=== PATIENT | female | born 1945 | race Caucasian/White ===

== ENCOUNTER → 2017-05-26 | Outpatient (CLI) | payer MEDICARE, OTHER ==
[2017-05-26 11:35] LABS: Blood Urea Nitrogen 21 mg/dL (7-17); Non-African American GFR(MDRD) 52 (>60 ml/min/1.73 sqM)
--- NOTE | 2017-05-26 12:45 | CT ---
EXAMINATION TYPE: CT ChestAbdPelvis w con DATE OF EXAM: 05/26/2017 COMPARISON: Previous study dated 04/23/2016 HISTORY: Bladder cancer CT DLP: 2100 mGycm Automated exposure control for dose reduction was used. TECHNIQUE: Helical acquisition through the abdomen and pelvis was obtained without oral contrast but following the intravenous administration of 80 mL of Visipaque 320. The data was formatted in the ax ial, coronal and sagittal projections. FINDINGS: There is a stable 5.5 mm subpleural nodule in the lateral basal segment of the right lower lobe, best seen on image 33. There is a 7.1 mm subpleural nodule in the lateral basal segment of the right lower lobe best seen on image 40. Previously described nodule in the superior segment of the of the right lower lobe previously measured 4.36 mm today measures 5.1 mm. No other definite parenchyma l nodules are seen. There is no significant axillary, internal mammary, mediastinal or hilar adenopathy. The heart is mildly enlarged. There is no pleural or pericardial fluid. Within the abdomen, the liver is normal in size. It is mildly fatty infiltrated. Previously described hypodensity within the left lobe of the liver near the diaphragm previously measured 7.3 mm and toda y measures 1.4 cm. No other hepatic lesions are identified. The spleen and gallbladder are normal. Both adrenal glands are normal. There is been a previous left nephrectomy. The right kidney is normal. The pancreas is unremarkable. There is no significant retroperitoneal, iliac or inguinal adenopathy. The right hip prosthesis causing streak artifact in the pelvis. The bladder is not identified. The uterus and ovaries are not identified. There is ileal conduit in the right lower quadrant. There is mucosal thickening within the sigmoid colon. The appendix is not visualized. Small bowel loops are unremarkable. There is no free air and no free fluid identified. There degenerative changes in the left hip as well as throughout the lumbar and thoracic spine. There is diffuse hypertrophic spondylosis and facet arthropathy. No bony destructive lesion is seen. IMPRESSION: 1. LUNGS STABLE RIGHT-SIDED PULMONARY NODULES. 2. ENLARGING LESION IN THE LEFT LOBE OF LIVER. 3. STATUS POST LEFT NEPHRECTOMY, HYSTERECTOMY AND CYSTECTOMY. 4. MUCOSAL THICKENING OF THE SIGMOID COLON. PLEASE CORRELATE CLINICALLY FOR COLITIS. 5. DEGENERATIVE CHANGES WITHIN THE SPINE.
== END | disposition home or self-care (01) ==
LOC: RADCTMAIN 10:59
PROVIDERS: ATTEND Internal Medicine Hematology & Oncology
DX: Z03.89 Encounter for observation for other suspected diseases and conditions ruled out (principal); C67.9 Malignant neoplasm of bladder, unspecified; R91.8 Other nonspecific abnormal finding of lung field; K76.9 Liver disease, unspecified; Z90.5 Acquired absence of kidney; Z90.710 Acquired absence of both cervix and uterus
CPT/HCPCS: 82565; 84520; 71260; 74177; 36415; Q9967

== ENCOUNTER → 2017-07-15 | Outpatient (CLI) | payer MEDICARE, OTHER ==
[~2017-07-15] MED LIST: REGADENOSON 0.4 MG/5 ML SYRINGE IV ONE
--- NOTE | 2017-07-15 11:42 | NM ---
EXAMINATION TYPE: NM stress lexiscan cardiolite DATE OF EXAM: 07/15/2017 COMPARISON: NONE HISTORY: Precordial chest pain and abnormal EKG TECHNIQUE: After the intravenous administration of 10.9 mCi Tc 99m Sestamibi - Cardiolite resting SP ECT images acquired 45 minutes post injection. The patient received 0.4mg Lexiscan, 27.6 mCi Tc 99m Sestamibi - Stress images obtained [address] injection FINDINGS: Review of stress and rest SPECT images demonstrates fixed decreased perfusion involving the anterior wall which may reflect remote insult versus breast attenuation artifact. No evidence for stress-induc ed ischemia. Estimated ejection fraction is 71%. No wall motion abnormalities identified. IMPRESSION: No scintigraphic evidence for reversible ischemia.
--- NOTE | 2017-07-16 13:43 | EST ---
DATE OF SERVICE: 07/15/17 The test is being done to evaluate cardiac status. BASELINE HEART RATE: 70 BASELINE BLOOD PRESSURE: 194/89 MAXIMUM HEART RATE: 93 MAXIMUM BLOOD PRESSURE: 175/79 85% MPHR 123 100% MPHR 149 Baseline EKG showed sinus rhythm with normal OK interval and QRS duration. The patient has history of chest pain and palpitations and also hypercholesterolemia , smoking and family history. Baseline EKG showed sinus rhythm. A standard dose of Lexiscan was infused. EKGs during and after infusion did not reveal any changes to suggest ischemia. FINAL IMPRESSION: 1. Negative Lexiscan stress test. 2. Report on the nuclear images to be given by the radiologist. SANTIAGOD
== END | disposition home or self-care (01) ==
LOC: RADNMMAIN 07-14 08:53
PROVIDERS: ATTEND Family Medicine
DX: R94.31 Abnormal electrocardiogram [ECG] [EKG] (principal)
CPT/HCPCS: 93017; 78452; A9500; J2785

== ENCOUNTER → 2017-10-19 | Outpatient (CLI) | payer MEDICARE, OTHER ==
--- NOTE | 2017-10-19 14:42 | MM ---
Reason for exam: additional evaluation requested from prior study. Last mammogram was performed 1 year ago. History: Patient is postmenopausal, has history of other cancer at age 64, has history of breast cancer at age 61, and had previous chest radiation therapy at age 61. Family history of breast cancer in maternal grandmother at age 60. Malignant excisional biopsy of the left breast, November 25, 2006. Radiation therapy of the left breast, 2006. Malignant core biopsy of the left breast, October 12, 2006. Excisional biopsy of the left breast. Excisional biopsy of the right breast. Took hormonal contraceptives for 11 years. Took tamoxifen for 5 years beginning at age 60. Physical Findings: Nurse did not find any significant physical abnormalities on exam. MG 3D Diag Mammo W/Cad KIEL Bilateral CC and MLO view(s) were taken. Prior study comparison: October 04, 2016, bilateral MG 3d diag mammo w/cad KIEL. October 01, 2015, bilateral MG 3d diag mammo w/cad KIEL. There are scattered fibroglandular densities. Finding #1: Architectural distortion in the left breast consistent with known lumpectomy. Finding #2: There are typically benign vascular, round calcifications in both breasts. There is a chronic nodularity in the right breast. There is no discrete abnormality. These results were verbally communicated with the patient and result sheet given to the patient on 10/19/17. ASSESSMENT: Benign, BI-RAD 2 RECOMMENDATION: Routine screening mammogram of both breasts in 1 year.
== END | disposition home or self-care (01) ==
LOC: RADMAMWWP 13:48
PROVIDERS: ATTEND Family Medicine
DX: Z08 Encounter for follow-up examination after completed treatment for malignant neoplasm (principal); Z85.3 Personal history of malignant neoplasm of breast
CPT/HCPCS: G0204; G0279

== ENCOUNTER → 2018-06-24 | Outpatient (CLI) | payer MEDICARE, OTHER ==
--- NOTE | 2018-06-25 12:39 | PE ---
EXAMINATION TYPE: PET CT fusion skull to thigh DATE OF EXAM: 06/24/2018 COMPARISON: CT chest abdomen pelvis 05/26/2017 Prior PET/CT: None at this location HISTORY: Urinary bladder cancer , left kidney removed 2009, radiation therapy left breast 2005 TECHNIQUE: Following the intravenous administration of 13.45 mCi of F-18 FDG, whole body images are performed from the skull base to the midthigh. Images are reviewed on the computer in the coronal, a xial, and sagittal planes. Reconstructed rotating images are created on independent workstation and reviewed on the computer. A localization and attenuation correction CT is performed in conjunction with the PET scan. DLP: 475.12 mGycm SCAN: Subsequent Scan, prior PET scan location unknown, no prior PET/CT at this location. Blood glucose: 93 mg/dL Average Mediastinum SUV: 1.88 Average Liver SUV: 2.88 FINDINGS: NECK: No abnormal uptake THORAX: No abnormal uptake ABDOMEN: No abnormal uptake PELVIS: There is increased radiotracer accumulation within the left medial thigh musculature. This is more diffuse than typically expected for metastatic disease. Injury and healing could be considered. Suspicious uptake to suggest recurrence is not identified. There is uptake likely related to inflamm ation through the urostomy. There is increased uptake along the right lateral pelvic wall along the site of prior surgery likely related to the surgery. Monitoring with PET/CT could be performed. OSSEOUS STRUCTURES: No abnormal uptake LOCALIZATION CT: There is been a left nephrectomy. Cystectomy has been performed. Bowel resection has been performed. Bilateral hip prostheses are present limiting lower pelvis evaluation. COMPARISON: There is been an interval left hip placement. This may likely accounts for the muscle upt aron within the pelvis medial left thigh. IMPRESSION: 1. No suspicious uptake to suggest recurrent or metastatic disease. 2. Recent left hip replacement likely accounts for the uptake within the medial left anterior thigh m usculature. 3. Uptake along the right pelvic wall appears to correspond to surgery. This area can be monitored wi th PET/CT.
== END | disposition home or self-care (01) ==
LOC: RADPETMAIN 09:17
PROVIDERS: ATTEND Internal Medicine Hematology & Oncology
DX: C67.8 Malignant neoplasm of overlapping sites of bladder (principal); Z96.642 Presence of left artificial hip joint
CPT/HCPCS: 78815; A9552

== ENCOUNTER → 2019-08-06 | Outpatient (CLI) | payer MEDICARE, OTHER ==
--- NOTE | 2019-08-06 11:49 | MM ---
Reason for exam: additional evaluation requested from prior study. Last mammogram was performed 1 year and 10 months ago. History: Patient is postmenopausal, has history of other cancer at age 64, has history of breast cancer at age 61, and had previous chest radiation therapy at age 61. Family history of breast cancer in maternal grandmother at age 60. Malignant excisional biopsy of the left breast, November 25, 2006. Radiation therapy of the left breast, 2006. Malignant core biopsy of the left breast, October 12, 2006. Excisional biopsy of the left breast. Excisional biopsy of the right breast. Took hormonal contraceptives for 11 years. Took tamoxifen for 5 years beginning at age 60. Physical Findings: Nurse did not find any significant physical abnormalities on exam. MG 3D Diag Mammo W/Cad KIEL Bilateral CC and MLO view(s) were taken. Prior study comparison: October 19, 2017, bilateral MG 3d diag mammo w/cad KIEL. October 04, 2016, bilateral MG 3d diag mammo w/cad KIEL. There are scattered fibroglandular densities. Stable scattered focal asymmetries on the right. Post surgical and post therapy changes on the left breast. No significant new findings when compared with previous films. These results were verbally communicated with the patient and result sheet given to the patient on 08/06/19. ASSESSMENT: Benign, BI-RAD 2 RECOMMENDATION: Routine screening mammogram of both breasts in 1 year.
== END | disposition home or self-care (01) ==
LOC: RADMAMWWP 10:52
PROVIDERS: ATTEND Family Medicine
DX: Z08 Encounter for follow-up examination after completed treatment for malignant neoplasm (principal); Z85.3 Personal history of malignant neoplasm of breast
CPT/HCPCS: 77066; G0279; 77062

== ENCOUNTER 2021-11-04 10:30 | Emergency (ER) | payer MEDICARE, OTHER ==
[2021-11-04 10:47] VITALS: TEMP 98
[2021-11-04 11:20] VITALS: RESP 16
[2021-11-04] MEDS ORDERED: MORPHINE SULFATE 4 MG/ML SYRINGE IV STA (11:30)
--- NOTE | 2021-11-04 11:34 | ED ---
Abdominal Pain HPI - General Chief Complaint: Abdominal Pain Stated Complaint: Abd pain Time Seen by Provider: 11/04/21 11:13 Source: patient Mode of arrival: ambulatory Limitations: no limitations - History of Present Illness Initial Comments: Dictation was produced using [employer] dictation software. please excuse any grammatical, word or spelling errors. Chief Complaint: 75-year-old female presents with abdominal pain History of Present Illness: She is a 75-year-old female presents to the emergency department for abdominal pain. Patient reports that she's been having this pain for several weeks. She called her general surgeon's office and was instructed to come to the emergency department. Patient has a urostomy to her right lower quadrant. Patient states that the pain feels leads under her urostomy site she states that it severe episodic. Nonradiating. Denies any fever. No nausea of abdominal pain. Patient regular bowel movement. She is not sure if she is constipated. The ROS documented in this emergency department record has been reviewed and confirmed by me. Those systems with pertinent positive or negative responses have been documented in the HPI. All other systems are other negative and/or noncontributory. PHYSICAL EXAM: General Impression: Alert and oriented x3, not in acute distress HEENT: Normocephalic atraumatic, extra-ocular movements intact, pupils equal and reactive to light bilaterally, mucous membranes moist. Cardiovascular: Heart regular rate and rhythm Chest: Able to complete full sentences, no retractions, no tachypnea Abdomen: abdomen soft, non-tender, non-distended, no organomegaly Musculoskeletal: Pulses present and equal in all extremities, no peripheral edema Motor: no focal deficits noted Neurological: CN II-XII grossly intact, no focal motor or sensory deficits noted Skin: Intact with no visualized rashes Psych: Normal affect and mood ED course: 75-year-old female who is well-appearing presents to the emergency department for abdominal pain vital signs upon arrival are within acceptable limits. Patient is well-appearing at the bedside. She does not appear to be having active symptoms at this time. Laboratory evaluation obtained. No leukocytosis. CBC unremarkable. Metabolic panel is within acceptable limits. Urinalysis is negative. Computed tomography scan shows retroperitoneal adenopathy suspicious for oncologic process. Patient was notified of the CT results. Disposition options were discussed. Patient is agreeable for discharge. She will call her oncologist as soon as possible to make an appointment. Patient given pain pills to take at home when necessary pain. - Related Data Home Medications Medication Instructions Recorded Confirmed Acetaminophen [Tylenol Extra 1,000 mg PO QID PRN 11/04/21 11/04/21 Strength] Atorvastatin [Lipitor] 20 mg PO TUSA 11/04/21 11/04/21 Calcium Carbonate [Tums] 500 mg PO DIRECTED PRN 11/04/21 11/04/21 Cannabidiol (Cbd) [Epidiolex] 0 mg TOPICAL DIRECTED PRN 11/04/21 11/04/21 Doxylamine Succinate [Unisom] 25 mg PO HS PRN 11/04/21 11/04/21 Metoprolol Tartrate [Lopressor] 100 mg PO BID 11/04/21 11/04/21 Multivit-Min/FA/Lycopen/Lutein 1 each PO DAILY 11/04/21 11/04/21 [Centrum Silver Tablet] Suppositories/Enemas 1 dose RECTAL DIRECTED PRN 11/04/21 Verapamil HCl [Verapamil ER] 120 mg PO DAILY 11/04/21 11/04/21 hydrALAZINE HCL [Apresoline] 10 mg PO DAILY 11/04/21 11/04/21 lisinopriL 40 mg PO DAILY 11/04/21 11/04/21 Previous Rx's Medication Instructions Recorded oxyCODONE-APAP 10-325MG [Percocet 1 tab PO Q4HR PRN 3 Days #18 tab 11/04/21 10-325 mg] Allergies Allergy/AdvReac Type Severity Reaction Status Date / Time codeine Allergy Rash/Hives, Verified 11/04/21 10:41 red all over colesevelam [From WelChol] Allergy Unknown Verified 11/04/21 10:41 duloxetine [From Cymbalta] Allergy Unknown Verified 11/04/21 10:41 latex Allergy positive Verified 11/04/21 10:41 allergy testing nickel Allergy positive Verified 11/04/21 10:41 allergy testing tramadol Allergy Unknown Verified 11/04/21 10:41 valsartan [From Diovan] Allergy Unknown Verified 11/04/21 10:41 zolpidem [From Ambien] Allergy Unknown Verified 11/04/21 10:41 Review of Systems ROS Statement: Those systems with pertinent positive or pertinent negative responses have been documented in the HPI. ROS Other: All systems not noted in ROS Statement are negative. Past Medical History Past Medical History: Cancer, GERD/Reflux, Hypertension Additional Past Medical History / Comment(s): 2007-breast cancer with surgery, radiation and Tamoxifen, left kidney and bladder cancer -surgery with chemo and hysterectomy., hx colon polyps., pt has urostomy., states constipation for 3 months, has used suppositories, and enemas, past blood in stool and dark black stools., states pain right abdomen by her stoma. , states abdomen is soft but feels swollen. History of Any Multi-Drug Resistant Organisms: None Reported Past Surgical History: Bladder Surgery, Breast Surgery, Joint Replacement Additional Past Surgical History / Comment(s): 2004 TOTAL RIGHT HIP, 2006 LEFT BREAST LUPECTOMY, 2009 LEFT KIDNEY REMOVED, BLADDER SURGERY WITH UROSTOMY, 2016 TOTAL LEFT HIP. Past Anesthesia/Blood Transfusion Reactions: No Reported Reaction Past Psychological History: No Psychological Hx Reported Smoking Status: Former smoker Past Alcohol Use History: None Reported Past Drug Use History: None Reported - Past Family History Mother Family Medical History: No Reported History General Exam Limitations: no limitations Course Vital Signs 11/04/21 11/04/21 10:42 11:18 Temperature 98 F Pulse Rate 71 72 Respiratory 18 16 Rate Blood Pressure 196/90 149/107 O2 Sat by Pulse 95 97 Oximetry Medical Decision Making - Lab Data Result diagrams: 11/04/21 11:47 11/04/21 11:47 Lab Results 11/04/21 11/04/21 11/04/21 Range/Units 11:47 11:47 11:47 WBC 4.8 (3.8-10.6) k/uL RBC 4.72 (3.80-5.40) m/uL Hgb 15.2 (11.4-16.0) gm/dL Hct 46.7 H (34.0-46.0) % MCV 98.8 (80.0-100.0) fL MCH 32.1 (25.0-35.0) pg MCHC 32.5 (31.0-37.0) g/dL RDW 14.1 (11.5-15.5) % Plt Count 197 (150-450) k/uL MPV 9.4 Neutrophils % 62 % Lymphocytes % 24 % Monocytes % 10 % Eosinophils % 1 % Basophils % 0 % Neutrophils # 3.0 (1.3-7.7) k/uL Lymphocytes # 1.2 (1.0-4.8) k/uL Monocytes # 0.5 (0-1.0) k/uL Eosinophils # 0.1 (0-0.7) k/uL Basophils # 0.0 (0-0.2) k/uL Sodium 140 (137-145) mmol/L Potassium 4.6 (3.5-5.1) mmol/L Chloride 104 (98-107) mmol/L Carbon Dioxide 21 L (22-30) mmol/L Anion Gap 15 mmol/L BUN 15 (7-17) mg/dL Creatinine 0.94 (0.52-1.04) mg/dL Est GFR (CKD-EPI)AfAm 69 (>60 ml/min/1.73 sqM) Est GFR (CKD-EPI)NonAf 60 (>60 ml/min/1.73 sqM) Glucose 115 H (74-99) mg/dL Calcium 10.2 (8.4-10.2) mg/dL Total Bilirubin 0.7 (0.2-1.3) mg/dL AST 27 (14-36) U/L ALT 16 (4-34) U/L Alkaline Phosphatase 77 (38-126) U/L Total Protein 7.7 (6.3-8.2) g/dL Albumin 4.7 (3.5-5.0) g/dL Lipase 78 (23-300) U/L Urine Color Light Yellow Urine Appearance Clear (Clear) Urine pH 6.5 (5.0-8.0) Ur Specific [place] 1.014 (1.001-1.035) Urine Protein Negative (Negative) Urine Glucose (UA) Negative (Negative) Urine Ketones Negative (Negative) Urine Blood Negative (Negative) Urine Nitrite Negative (Negative) Urine Bilirubin Negative (Negative) Urine Urobilinogen <2.0 (<2.0) mg/dL Ur Leukocyte Esterase Negative (Negative) Disposition Clinical Impression: Abdominal mass Disposition: HOME SELF-CARE Condition: Fair Instructions (If sedation given, give patient instructions): Bladder Cancer (DC) Prescriptions: oxyCODONE-APAP 10-325MG [Percocet 10-325 mg] 1 tab PO Q4HR PRN 3 Days #18 tab PRN Reason: Pain Is patient prescribed a controlled substance at d/c from ED?: Yes If prescribed controlled substance>3 days was MAPS reviewed?: Prescribed <3 Days Referrals: Chery Thomas DO [Primary Care Provider] - 1-2 days Fer Malave MD [STAFF PHYSICIAN] - 1-2 days
[2021-11-04 12:08] LABS: Basophils % (A) 0 %; Eosinophils # (A) 0.1 k/uL (0-0.7); Eosinophils % (A) 1 %; HCT 46.7 % (34.0-46.0); HGB 15.2 gm/dL (11.4-16.0); Lymphocytes # (A) 1.2 k/uL (1.0-4.8); Lymphocytes % (A) 24 %; MCH 32.1 pg (25.0-35.0); MCHC 32.5 g/dL (31.0-37.0); MCV 98.8 fL (80.0-100.0); Mean Platelet Volume 9.4; Monocytes # (A) 0.5 k/uL (0-1.0); Monocytes % (A) 10 %; Neutrophils % (A) 62 %; Platelet Count 197 k/uL (150-450); RBC 4.72 m/uL (3.80-5.40); RDW 14.1 % (11.5-15.5); WBC 4.8 k/uL (3.8-10.6)
[2021-11-04 12:50] LABS: Albumin 4.7 g/dL (3.5-5.0); Calcium 10.2 mg/dL (8.4-10.2); Potassium 4.6 mmol/L (3.5-5.1); Total Bilirubin 0.7 mg/dL (0.2-1.3); Total Protein 7.7 g/dL (6.3-8.2)
--- NOTE | 2021-11-04 13:50 | CT ---
EXAMINATION TYPE: CT abdomen pelvis w con DATE OF EXAM: 11/04/2021 COMPARISON: HISTORY: Lower abdominal pain and below stoma. CT DLP: 1590 mGycm Automated exposure control for dose reduction was used. TECHNIQUE: Helical acquisition of images from the lung bases through the pelvis have been completed. CONTRAST: Performed without Oral Contrast and with IV Contrast, patient injected with 80 mL of Isovue 300. FINDINGS: LUNG BASES: No significant abnormality is appreciated. AORTA: No significant abnormality is appreciated. LIVER/GB: No significant abnormality is appreciated. PANCREAS: No significant abnormality is seen. SPLEEN: No significant abnormality is seen. ADRENALS: No significant abnormality is seen. KIDNEYS: Left kidney is not seen as on prior exam, post nephrectomy changes present. Prominence of th e right renal collecting system is a chronic finding., Right-sided hydroureter extends to the level o f the surgical clip similar to prior exam REPRODUCTIVE ORGANS: Exam limited due to artifact, surgical clips are present within the pelvis. Uter us and adnexal structures not seen BOWEL: Postop changes are noted, suture present along the bowel in the right lower quadrant. There i s an ostomy in the right lower quadrant. No evident bowel obstruction. FREE AIR: No Free Air visible. ASCITES: None visible. PELVIC ADENOPATHY: None visualized. RETROPERITONEAL ADENOPATHY: At the level of aortic bifurcation on the left there is been interval de velopment of abnormal soft tissue measuring approximately 3 cm in AP dimension by 2.1 cm in transvers e dimension by 5.7 cm in cephalad to caudal dimension, there is some associated surgical clips this l evel. URINARY BLADDER: No significant abnormality is seen. OSSEOUS STRUCTURES: Degenerative disc changes and facet arthropathy noted especially in the lumbar s pine, patient is post bilateral hip arthroplasties, streak artifact obscured detail. IMPRESSION: FINDINGS SUGGEST NEW RETROPERITONEAL ADENOPATHY, THERE ARE POSTOP CHANGES PRESENT. FOLLOW-UP WITH ONC OLOGY, CONSIDER PET CT.
[2021-11-04 13:58] LABS: Appearance,Urine Clear (Clear); Bilirubin,Urine Negative (Negative); Blood,Urine Negative (Negative); Color,Urine Light Yellow; Glucose,Urine (UA) Negative (Negative); Ketones,Urine Negative (Negative); Leukocyte Esterase,Urine Negative (Negative); Nitrite,Urine Negative (Negative); PH, Urine 6.5 (5.0-8.0); Protein,Urine Negative (Negative); Specific Gravity,Urine 1.014 (1.001-1.035); Urobilinogen,Urine <2.0 mg/dL (<2.0)
[2021-11-04] MEDS ORDERED: MORPHINE SULFATE 4 MG/ML SYRINGE IVP STA (14:37)
[2021-11-04 14:52] VITALS: BP 164/100; PULSE 80
== END 2021-11-04 14:50 | disposition home or self-care (01) ==
LOC: EC 10:30
DX: R19.00 Intra-abdominal and pelvic swelling, mass and lump, unspecified site (principal); I10 Essential (primary) hypertension; K21.9 Gastro-esophageal reflux disease without esophagitis; Z88.5 Allergy status to narcotic agent; Z88.8 Allergy status to other drugs, medicaments and biological substances; Z91.040 Latex allergy status; Z91.09 Other allergy status, other than to drugs and biological substances; Z88.6 Allergy status to analgesic agent; Z87.891 Personal history of nicotine dependence; Z79.899 Other long term (current) drug therapy
CPT/HCPCS: 36415; 80053; 83690; 85025; 81003; 74177; 99284; 96374; 96376; J2270; Q9967

== ENCOUNTER 2021-11-10 08:00 | Emergency (ER) | payer MEDICARE, OTHER ==
[2021-11-10 08:18] VITALS: RESP 18; TEMP 98.6
[2021-11-10] MEDS ORDERED: SODIUM CHLORIDE 0.9% 1,000 ML IV STA (08:23)
[2021-11-10] MEDS ORDERED: MORPHINE SULFATE 4 MG/ML SYRINGE IVP STA ×2 (08:23→10:07)
--- NOTE | 2021-11-10 08:47 | ED ---
General Adult HPI - General Chief complaint: Abdominal Pain Stated complaint: abd pain Time Seen by Provider: 11/10/21 08:12 Source: patient, EMS, RN notes reviewed, old records reviewed Mode of arrival: EMS Limitations: no limitations - History of Present Illness Initial comments: Patient is a 76-year-old female with past medical history remarkable for breast cancer, bladder cancer, kidney cancer who presents emergency Department complaining of her acute on chronic abdominal pain. This is been ongoing for multiple weeks. She was seen in the emergency department last week and was diagnosed with new retroperitoneal adenopathy with a strong concern for recurrence of cancer due to her history. She was sent home on oxycodone and follow up with her oncologist, Dr. Barros. She followed up with them yesterday and a PET CT was scheduled for which is 2 days from now. She states she was given [place], but this does not seem to control the pain like oxycodone did. She is complaining of the continued pain that she has been expansive the last few weeks. Denies any change in by mouth intake, nausea, vomiting. Denies any change in bowel movements, but states she has a chronic feeling of constipation over the last few weeks, however she did have a normal bowel movement 1-2 days ago. Denies any urinary complaints. Endorses primarily right lower quadrant abdominal pain that is an achy, sharp sensation beneath the level of the urostomy tube. It does not radiate. It comes and goes in waves. His no other acute complaints at this time. Denies any fevers, chills, cough. Was vaccinated for COVID-19. - Related Data Home Medications Medication Instructions Recorded Confirmed Acetaminophen [Tylenol Extra 1,000 mg PO QID PRN 11/04/21 11/04/21 Strength] Atorvastatin [Lipitor] 20 mg PO TUSA 11/04/21 11/04/21 Calcium Carbonate [Tums] 500 mg PO DIRECTED PRN 11/04/21 11/04/21 Cannabidiol (Cbd) [Epidiolex] 0 mg TOPICAL DIRECTED PRN 11/04/21 11/04/21 Doxylamine Succinate [Unisom] 25 mg PO HS PRN 11/04/21 11/04/21 Metoprolol Tartrate [Lopressor] 100 mg PO BID 11/04/21 11/04/21 Multivit-Min/FA/Lycopen/Lutein 1 each PO DAILY 11/04/21 11/04/21 [Centrum Silver Tablet] Suppositories/Enemas 1 dose RECTAL DIRECTED PRN 11/04/21 Verapamil HCl [Verapamil ER] 120 mg PO DAILY 11/04/21 11/04/21 hydrALAZINE HCL [Apresoline] 10 mg PO DAILY 11/04/21 11/04/21 lisinopriL 40 mg PO DAILY 11/04/21 11/04/21 Previous Rx's Medication Instructions Recorded oxyCODONE-APAP 10-325MG [Percocet 1 tab PO Q4HR PRN 3 Days #18 tab 11/04/21 10-325 mg] oxyCODONE HCL/ACETAMINOPHEN 1 tab PO Q4HR PRN 3 Days #18 tab 11/10/21 [Percocet 10-325 mg] Allergies Allergy/AdvReac Type Severity Reaction Status Date / Time codeine Allergy Rash/Hives, Verified 11/10/21 08:19 red all over colesevelam [From WelChol] Allergy Unknown Verified 11/10/21 08:19 duloxetine [From Cymbalta] Allergy Unknown Verified 11/10/21 08:19 latex Allergy positive Verified 11/10/21 08:19 allergy testing nickel Allergy positive Verified 11/10/21 08:19 allergy testing tramadol Allergy Unknown Verified 11/10/21 08:19 valsartan [From Diovan] Allergy Unknown Verified 11/10/21 08:19 zolpidem [From Ambien] Allergy Unknown Verified 11/10/21 08:19 Review of Systems ROS Statement: Those systems with pertinent positive or pertinent negative responses have been documented in the HPI. Review of Systems: CONST: Denies fever EYES: Denies blurry vision ENT: Denies nasal congestion C/V: Denies Chest pain RESP: Denies shortness of breath GI: Endorses abdominal pain : Denies dysuria SKIN: Denies rash. MSK: Denies joint pain. NEURO: Denies headache ROS Other: All systems not noted in ROS Statement are negative. Past Medical History Past Medical History: Cancer, GERD/Reflux, Hypertension Additional Past Medical History / Comment(s): 2007-breast cancer with surgery, radiation and Tamoxifen, left kidney and bladder cancer -surgery with chemo and hysterectomy., hx colon polyps., pt has urostomy., states constipation for 3 months, has used suppositories, and enemas, past blood in stool and dark black stools., states pain right abdomen by her stoma. , states abdomen is soft but feels swollen. History of Any Multi-Drug Resistant Organisms: None Reported Past Surgical History: Bladder Surgery, Breast Surgery, Joint Replacement Additional Past Surgical History / Comment(s): 2004 TOTAL RIGHT HIP, 2006 LEFT BREAST LUPECTOMY, 2009 LEFT KIDNEY REMOVED, BLADDER SURGERY WITH UROSTOMY, 2017 TOTAL LEFT HIP. Past Anesthesia/Blood Transfusion Reactions: No Reported Reaction Past Psychological History: No Psychological Hx Reported Smoking Status: Former smoker Past Alcohol Use History: None Reported Past Drug Use History: None Reported - Past Family History Mother Family Medical History: No Reported History General Exam - General Exam Comments Initial Comments: General: Appears in mild discomfort secondary to her chronic abdominal pain. HEAD: Normal with no signs of head trauma. EYES: PERRLA, EOMI, conjunctiva normal, no discharge. ENT: Hearing grossly intact, normal oropharynx. RESPIRATORY: Clear breath sounds bilaterally. No wheezes, rales, or rhonchi. C/V: Regular rate and rhythm. S1 and S2 auscultated, no edema, peripheral pulses 2+ and intact throughout ABD: Abdomen is soft, nondistended. Patient is tender to palpation in the same area, right lower quadrant. Patient's urostomy site is adequately draining clear urine. No concern for obstruction. No guarding. No peritoneal signs. EXT: Normal range of motion, no obvious deformity SKIN: No rashes or lesions observed on exposed skin. NEURO: Alert and oriented 4. No focal deficits. Limitations: no limitations Course Vital Signs 11/10/21 11/10/21 08:02 09:50 Temperature 98.6 F Pulse Rate 75 65 Respiratory 18 18 Rate Blood Pressure 195/87 196/103 O2 Sat by Pulse 96 98 Oximetry Medical Decision Making - Medical Decision Making Based on the patient's presentation and physical exam, I believe she is likely dispensing her chronic abdominal pain that has been ongoing for multiple weeks likely secondary to her adenopathy located in her abdomen seen on prior computed tomography scan. She has adequate follow-up with her oncologist and has a scheduled PET computed tomography scan later this week. She ran out of the stronger pain medication at home, has no other acute complaints at this time. We will provide analgesia, 1 L fluid bolus, as well as basic laboratory studies. We discussed that if possible, would like patient to go home due to it being COVID-19 pandemic and having adequate follow-up. She was in agreement with this plan. Basic laboratory studies will be sent. Patient's laboratory studies are remarkable for no acute process. Urinalysis is unremarkable. Reevaluation come patient's pain is under control. I did discuss admission for pain control versus outpatient management of pain control. I can pry provide her with additional Percocet prescription. She elected to be discharged home at this time and attempt pain control at home. I was in agreement this plan. She does have close follow-up and is due for a PET scan on . Patient completed the opiate form. She will be given 3 days of Percocet. I will provide the patient with a prescription for Percocet. I instructed the patient to follow up with their PCP in the next 3 days. I explained that the patient should return to the emergency department if they experience any worsening symptoms. Strict return precautions were discussed with the patient. The patient expressed understanding of these instructions. I answered all questions that the patient had. The patient was discharged home in fair condition with their prescriptions and follow up information. - Lab Data Result diagrams: 11/10/21 08:47 11/10/21 08:47 Lab Results 11/10/21 11/10/21 11/10/21 Range/Units 08:47 08:47 09:17 WBC 3.8 (3.8-10.6) k/uL RBC 4.20 (3.80-5.40) m/uL Hgb 13.4 (11.4-16.0) gm/dL Hct 40.3 (34.0-46.0) % MCV 95.9 (80.0-100.0) fL MCH 31.9 (25.0-35.0) pg MCHC 33.3 (31.0-37.0) g/dL RDW 12.9 (11.5-15.5) % Plt Count 134 L (150-450) k/uL MPV 9.9 Neutrophils % 60 % Lymphocytes % 25 % Monocytes % 13 % Eosinophils % 1 % Basophils % 0 % Neutrophils # 2.3 (1.3-7.7) k/uL Lymphocytes # 1.0 (1.0-4.8) k/uL Monocytes # 0.5 (0-1.0) k/uL Eosinophils # 0.0 (0-0.7) k/uL Basophils # 0.0 (0-0.2) k/uL Sodium 139 (137-145) mmol/L Potassium 4.4 (3.5-5.1) mmol/L Chloride 106 (98-107) mmol/L Carbon Dioxide 26 (22-30) mmol/L Anion Gap 7 mmol/L BUN 16 (7-17) mg/dL Creatinine 0.85 (0.52-1.04) mg/dL Est GFR (CKD-EPI)AfAm 77 (>60 ml/min/1.73 sqM) Est GFR (CKD-EPI)NonAf 67 (>60 ml/min/1.73 sqM) Glucose 115 H (74-99) mg/dL Calcium 9.4 (8.4-10.2) mg/dL Magnesium 2.1 (1.6-2.3) mg/dL Total Bilirubin 0.6 (0.2-1.3) mg/dL AST 22 (14-36) U/L ALT 14 (4-34) U/L Alkaline Phosphatase 76 (38-126) U/L Total Protein 6.8 (6.3-8.2) g/dL Albumin 4.0 (3.5-5.0) g/dL Amylase 108 (30-110) U/L Lipase 217 (23-300) U/L Urine Color Light Yellow Urine Appearance Clear (Clear) Urine pH 6.5 (5.0-8.0) Ur Specific [place] 1.006 (1.001-1.035) Urine Protein Negative (Negative) Urine Glucose (UA) Negative (Negative) Urine Ketones Negative (Negative) Urine Blood Negative (Negative) Urine Nitrite Negative (Negative) Urine Bilirubin Negative (Negative) Urine Urobilinogen <2.0 (<2.0) mg/dL Ur Leukocyte Esterase Negative (Negative) Disposition Clinical Impression: Chronic abdominal pain, Cancer Disposition: HOME SELF-CARE Condition: Fair Instructions (If sedation given, give patient instructions): Abdominal Pain (ED) Prescriptions: oxyCODONE HCL/ACETAMINOPHEN [Percocet 10-325 mg] 1 tab PO Q4HR PRN 3 Days #18 tab PRN Reason: Pain Is patient prescribed a controlled substance at d/c from ED?: Yes If prescribed controlled substance>3 days was MAPS reviewed?: Prescribed <3 Days Referrals: Chery Thomas DO [Primary Care Provider] - 1-2 days Fer Malave MD [STAFF PHYSICIAN] - 1-2 days
[2021-11-10 08:58] LABS: Basophils % (A) 0 %; Eosinophils % (A) 1 %; HCT 40.3 % (34.0-46.0); HGB 13.4 gm/dL (11.4-16.0); Lymphocytes % (A) 25 %; MCH 31.9 pg (25.0-35.0); MCHC 33.3 g/dL (31.0-37.0); MCV 95.9 fL (80.0-100.0); Mean Platelet Volume 9.9; Monocytes # (A) 0.5 k/uL (0-1.0); Monocytes % (A) 13 %; Neutrophils # (A) 2.3 k/uL (1.3-7.7); Neutrophils % (A) 60 %; Platelet Count 134 k/uL (150-450); RDW 12.9 % (11.5-15.5); WBC 3.8 k/uL (3.8-10.6)
[2021-11-10 09:17] LABS: Calcium 9.4 mg/dL (8.4-10.2); Magnesium 2.1 mg/dL (1.6-2.3); Potassium 4.4 mmol/L (3.5-5.1); Total Bilirubin 0.6 mg/dL (0.2-1.3); Total Protein 6.8 g/dL (6.3-8.2)
[2021-11-10 09:46] LABS: Appearance,Urine Clear (Clear); Bilirubin,Urine Negative (Negative); Blood,Urine Negative (Negative); Color,Urine Light Yellow; Glucose,Urine (UA) Negative (Negative); Ketones,Urine Negative (Negative); Leukocyte Esterase,Urine Negative (Negative); Nitrite,Urine Negative (Negative); PH, Urine 6.5 (5.0-8.0); Protein,Urine Negative (Negative); Specific Gravity,Urine 1.006 (1.001-1.035); Urobilinogen,Urine <2.0 mg/dL (<2.0)
[2021-11-10 09:52] VITALS: BP 196/103; PULSE 65
== END 2021-11-10 10:34 | disposition home or self-care (01) ==
LOC: EC 08:00
DX: R10.31 Right lower quadrant pain (principal); G89.29 Other chronic pain; K21.9 Gastro-esophageal reflux disease without esophagitis; I10 Essential (primary) hypertension; Z85.3 Personal history of malignant neoplasm of breast; Z85.528 Personal history of other malignant neoplasm of kidney; Z88.5 Allergy status to narcotic agent; Z88.1 Allergy status to other antibiotic agents; Z91.040 Latex allergy status; Z96.641 Presence of right artificial hip joint; Z87.891 Personal history of nicotine dependence
CPT/HCPCS: 99284; 96374; 96376; 96361; 36415; 80053; 82150; 83690; 83735; 85025; 81003; J2270

== ENCOUNTER 2021-11-12 09:09 | Emergency (ER) | payer MEDICARE, OTHER ==
[2021-11-12] MEDS ORDERED: MORPHINE SULFATE 4 MG/ML SYRINGE IV STA (09:40)
[2021-11-12] MEDS ORDERED: SODIUM CHLORIDE 0.9% 1,000 ML IV STA (09:40)
[2021-11-12 09:45] VITALS: RESP 18; TEMP 98.6
[2021-11-12 09:53] LABS: Basophils % (A) 0 %; Eosinophils % (A) 1 %; HCT 40.2 % (34.0-46.0); HGB 13.3 gm/dL (11.4-16.0); Lymphocytes # (A) 0.7 k/uL (1.0-4.8); Lymphocytes % (A) 17 %; MCH 31.5 pg (25.0-35.0); MCV 95.3 fL (80.0-100.0); Mean Platelet Volume 10.6; Monocytes # (A) 0.6 k/uL (0-1.0); Monocytes % (A) 14 %; Neutrophils # (A) 2.6 k/uL (1.3-7.7); Neutrophils % (A) 66 %; Platelet Count 134 k/uL (150-450); RBC 4.22 m/uL (3.80-5.40); RDW 12.9 % (11.5-15.5); WBC 3.9 k/uL (3.8-10.6)
[2021-11-12 10:10] LABS: Calcium 9.1 mg/dL (8.4-10.2); Total Bilirubin 0.9 mg/dL (0.2-1.3); Total Protein 6.9 g/dL (6.3-8.2)
[2021-11-12 10:21] LABS: Potassium 4.2 mmol/L (3.5-5.1)
[2021-11-12] MEDS ORDERED: HYDROmorphone 1 MG/ML 1 ML SYRINGE IVP STA ×2 (10:45→13:10)
[2021-11-12 11:20] LABS: Appearance,Urine Clear (Clear); Bilirubin,Urine Negative (Negative); Blood,Urine Negative (Negative); Color,Urine Light Yellow; Glucose,Urine (UA) Negative (Negative); Ketones,Urine 1+ (Negative); Leukocyte Esterase,Urine Negative (Negative); Nitrite,Urine Negative (Negative); PH, Urine 6.5 (5.0-8.0); Protein,Urine Trace (Negative); Specific Gravity,Urine 1.003 (1.001-1.035); Urobilinogen,Urine <2.0 mg/dL (<2.0)
--- NOTE | 2021-11-12 13:12 | ED ---
General Adult HPI - General Chief complaint: Abdominal Pain Stated complaint: Abdominal Pain Time Seen by Provider: 11/12/21 09:36 Source: EMS, RN notes reviewed, old records reviewed Mode of arrival: EMS Limitations: no limitations - History of Present Illness Initial comments: Patient is a 76 female with past medical history remarkable for cancer, urostomy with urostomy bag, as well as acute on chronic abdominal pain. I evaluated the patient earlier this week and she was found to have last week findings on CT concerning for possible metastatic cancer. She has a scheduled PET scan for today. She is been having worsening right lower quadrant abdominal pain that is relatively unchanged, however pain medications at home seemed to not be helping. She was discharged home on Percocet with minimal improvement. She presents today prior to her PET scan for further pain control and evaluation. Has noticed no change in urine output. No other acute complaints at this time other than her pain that she has been expressing for over a week. Describes the pain as sharp, achy but does not radiate. It is located in the right lower quadrant around the site of her urostomy, and it has not moved. - Related Data Home Medications Medication Instructions Recorded Confirmed Acetaminophen [Tylenol Extra 1,000 mg PO QID PRN 11/04/21 11/12/21 Strength] Atorvastatin [Lipitor] 20 mg PO TUSA 11/04/21 11/12/21 Doxylamine Succinate [Unisom] 25 mg PO HS PRN 11/04/21 11/12/21 Metoprolol Tartrate [Lopressor] 100 mg PO BID 11/04/21 11/12/21 Multivit-Min/FA/Lycopen/Lutein 1 tab PO DAILY 11/04/21 11/12/21 [Centrum Silver Tablet] Verapamil HCl [Verapamil ER] 120 mg PO DAILY 11/04/21 11/12/21 hydrALAZINE HCL [Apresoline] 10 mg PO BID 11/04/21 11/12/21 lisinopriL 40 mg PO DAILY 11/04/21 11/12/21 Cbd Gel 1 applic TOPICAL QID PRN 11/12/21 11/12/21 Cholecalciferol (Vitamin D3) 75 mcg PO DAILY 11/12/21 11/12/21 [Vitamin D3 (3000 Iu)] Piroxicam 20 mg PO DAILY 11/12/21 11/12/21 Pramipexole [Mirapex] 0.25 mg PO HS PRN 11/12/21 11/12/21 diphenhydrAMINE [Benadryl] 25 mg PO QID PRN 11/12/21 11/12/21 Previous Rx's Medication Instructions Recorded oxyCODONE HCL/ACETAMINOPHEN 1 tab PO Q4HR PRN 3 Days #18 tab 11/10/21 [Percocet 10-325 mg] Allergies Allergy/AdvReac Type Severity Reaction Status Date / Time codeine Allergy Rash/Hives, Verified 11/12/21 10:36 red all over colesevelam [From WelChol] Allergy Unknown Verified 11/12/21 10:36 duloxetine [From Cymbalta] Allergy Unknown Verified 11/12/21 10:36 latex Allergy positive Verified 11/12/21 10:36 allergy testing nickel Allergy positive Verified 11/12/21 10:36 allergy testing tramadol Allergy Unknown Verified 11/12/21 10:36 valsartan [From Diovan] Allergy Unknown Verified 11/12/21 10:36 zolpidem [From Ambien] Allergy Unknown Verified 11/12/21 10:36 Review of Systems ROS Statement: Those systems with pertinent positive or pertinent negative responses have been documented in the HPI. Review of Systems: CONST: Denies fever EYES: Denies blurry vision ENT: Denies nasal congestion C/V: Denies Chest pain RESP: Denies shortness of breath GI: Endorse's abdominal pain : Denies dysuria SKIN: Denies rash. MSK: Denies joint pain. NEURO: Denies headache ROS Other: All systems not noted in ROS Statement are negative. Past Medical History Past Medical History: Cancer, GERD/Reflux, Hypertension Additional Past Medical History / Comment(s): 2007-breast cancer with surgery, radiation and Tamoxifen, left kidney and bladder cancer -surgery with chemo and hysterectomy., hx colon polyps., pt has urostomy., states constipation for 3 months, has used suppositories, and enemas, past blood in stool and dark black stools., states pain right abdomen by her stoma. , states abdomen is soft but feels swollen. History of Any Multi-Drug Resistant Organisms: None Reported Past Surgical History: Bladder Surgery, Breast Surgery, Joint Replacement Additional Past Surgical History / Comment(s): 2004 TOTAL RIGHT HIP, 2007 LEFT BREAST LUPECTOMY, 2010 LEFT KIDNEY REMOVED, BLADDER SURGERY WITH UROSTOMY, 2017 TOTAL LEFT HIP. Past Anesthesia/Blood Transfusion Reactions: No Reported Reaction Past Psychological History: No Psychological Hx Reported Smoking Status: Former smoker Past Alcohol Use History: None Reported Past Drug Use History: None Reported - Past Family History Mother Family Medical History: No Reported History General Exam - General Exam Comments Initial Comments: General: She was in moderate distress secondary to abdominal pain. HEAD: Normal with no signs of head trauma. EYES: PERRLA, EOMI, conjunctiva normal, no discharge. ENT: Hearing grossly intact, normal oropharynx. RESPIRATORY: Clear breath sounds bilaterally. No wheezes, rales, or rhonchi. C/V: Regular rate and rhythm. S1 and S2 auscultated, no edema, peripheral pulses 2+ and intact throughout ABD: Abdomen is soft, nondistended. She is tender to palpation in the right lower quadrant onset of the urostomy bag. This is the exact same exam as last week. No guarding. No peritoneal signs. No rebound tenderness. No skin changes. Urostomy bag still has good output. Urine appears within normal limits. EXT: Normal range of motion, no obvious deformity SKIN: No rashes or lesions observed on exposed skin. NEURO: A&O 4. No focal deficits. Limitations: no limitations Course Vital Signs 11/12/21 11/12/21 09:43 13:34 Temperature 98.6 F Pulse Rate 62 89 Respiratory 18 18 Rate Blood Pressure 221/96 207/91 O2 Sat by Pulse 98 99 Oximetry Medical Decision Making - Medical Decision Making Based On the patient's presentation and physical exam, I'm concerned for her lik tamra chronic abdominal process, likely cancer causing her current symptoms. Exam is unchanged from earlier in the week. She is due for PET scan today. Home pain medication seemed to be not effective anymore. Therefore she will receive pain control, we will repeat abdominal laboratory studies. I also discussed that I would like to recheck her oncologist, Dr. Carmona she was in agreement with this plan. Patient's laboratory studies are unremarkable. Urine is unremarkable. I spoke with Dr. Carmona who I discussed inpatient versus outpatient management. Patient cannot receive a PET scanned inpatient. She needs a scan to further characterize her intra-abdominal process. If possible, he would like her to obtain the scan on an outpatient basis later today. I spoke with the patient regarding this. She was willing to attempt pain control here in the department and then go to her imaging. I redosed the patient with Dilaudid. Pain was under control. She felt that her pain was under enough control that she can make it to her imaging appointment. She would like to be discharged for the imaging appointment. I do believe this is reasonable. I provided strict return precautions to come to the emergency department if symptoms continued to get worse. She was in agreement with this plan. Dr. Carmona agreed to send pain medications to the patient's pharmacy for further pain control. I instructed the patient to follow up with their PCP in the next 3 days. I explained that the patient should return to the emergency department if they experience any worsening symptoms. Strict return precautions were discussed with the patient. The patient expressed understanding of these instructions. I answered all questions that the patient had. The patient was discharged home in fair condition with their prescriptions and follow up information. - Lab Data Result diagrams: 11/12/21 09:44 11/12/21 09:44 Lab Results 11/12/21 11/12/21 11/12/21 Range/Units 09:44 09:44 09:44 WBC 3.9 (3.8-10.6) k/uL RBC 4.22 (3.80-5.40) m/uL Hgb 13.3 (11.4-16.0) gm/dL Hct 40.2 (34.0-46.0) % MCV 95.3 (80.0-100.0) fL MCH 31.5 (25.0-35.0) pg MCHC 33.0 (31.0-37.0) g/dL RDW 12.9 (11.5-15.5) % Plt Count 134 L (150-450) k/uL MPV 10.6 Neutrophils % 66 % Lymphocytes % 17 % Monocytes % 14 % Eosinophils % 1 % Basophils % 0 % Neutrophils # 2.6 (1.3-7.7) k/uL Lymphocytes # 0.7 L (1.0-4.8) k/uL Monocytes # 0.6 (0-1.0) k/uL Eosinophils # 0.0 (0-0.7) k/uL Basophils # 0.0 (0-0.2) k/uL Sodium 136 L (137-145) mmol/L Potassium 4.2 (3.5-5.1) mmol/L Chloride 100 (98-107) mmol/L Carbon Dioxide 23 (22-30) mmol/L Anion Gap 13 mmol/L BUN 10 (7-17) mg/dL Creatinine 0.79 (0.52-1.04) mg/dL Est GFR (CKD-EPI)AfAm 85 (>60 ml/min/1.73 sqM) Est GFR (CKD-EPI)NonAf 74 (>60 ml/min/1.73 sqM) Glucose 121 H (74-99) mg/dL Plasma Lactic Acid Nae[place] 1.7 (0.7-2.0) mmol/L Calcium 9.1 (8.4-10.2) mg/dL Total Bilirubin 0.9 (0.2-1.3) mg/dL AST 31 (14-36) U/L ALT 15 (4-34) U/L Alkaline Phosphatase 57 (38-126) U/L Total Protein 6.9 (6.3-8.2) g/dL Albumin 4.0 (3.5-5.0) g/dL Amylase 75 (30-110) U/L Lipase 44 (23-300) U/L Urine Color Urine Appearance (Clear) Urine pH (5.0-8.0) Ur Specific [place] (1.001-1.035) Urine Protein (Negative) Urine Glucose (UA) (Negative) Urine Ketones (Negative) Urine Blood (Negative) Urine Nitrite (Negative) Urine Bilirubin (Negative) Urine Urobilinogen (<2.0) mg/dL Ur Leukocyte Esterase (Negative) 11/12/21 Range/Units 11:04 WBC (3.8-10.6) k/uL RBC (3.80-5.40) m/uL Hgb (11.4-16.0) gm/dL Hct (34.0-46.0) % MCV (80.0-100.0) fL MCH (25.0-35.0) pg MCHC (31.0-37.0) g/dL RDW (11.5-15.5) % Plt Count (150-450) k/uL MPV Neutrophils % % Lymphocytes % % Monocytes % % Eosinophils % % Basophils % % Neutrophils # (1.3-7.7) k/uL Lymphocytes # (1.0-4.8) k/uL Monocytes # (0-1.0) k/uL Eosinophils # (0-0.7) k/uL Basophils # (0-0.2) k/uL Sodium (137-145) mmol/L Potassium (3.5-5.1) mmol/L Chloride (98-107) mmol/L Carbon Dioxide (22-30) mmol/L Anion Gap mmol/L BUN (7-17) mg/dL Creatinine (0.52-1.04) mg/dL Est GFR (CKD-EPI)AfAm (>60 ml/min/1.73 sqM) Est GFR (CKD-EPI)NonAf (>60 ml/min/1.73 sqM) Glucose (74-99) mg/dL Plasma Lactic Acid [place] (0.7-2.0) mmol/L Calcium (8.4-10.2) mg/dL Total Bilirubin (0.2-1.3) mg/dL AST (14-36) U/L ALT (4-34) U/L Alkaline Phosphatase (38-126) U/L Total Protein (6.3-8.2) g/dL Albumin (3.5-5.0) g/dL Amylase (30-110) U/L Lipase (23-300) U/L Urine Color Light Yellow Urine Appearance Clear (Clear) Urine pH 6.5 (5.0-8.0) Ur Specific [place] 1.003 (1.001-1.035) Urine Protein Trace H (Negative) Urine Glucose (UA) Negative (Negative) Urine Ketones 1+ H (Negative) Urine Blood Negative (Negative) Urine Nitrite Negative (Negative) Urine Bilirubin Negative (Negative) Urine Urobilinogen <2.0 (<2.0) mg/dL Ur Leukocyte Esterase Negative (Negative) Disposition Clinical Impression: Cancer, Chronic abdominal pain Disposition: HOME SELF-CARE Condition: Fair Instructions (If sedation given, give patient instructions): Abdominal Pain (ED) Is patient prescribed a controlled substance at d/c from ED?: No Referrals: Solomon Thomas MD [Primary Care Provider] - 1-2 days
[2021-11-12 13:34] VITALS: BP 207/91; PULSE 89
== END 2021-11-12 13:36 | disposition home or self-care (01) ==
LOC: SUPCPDRO 09:09 → EC 09:09
DX: C79.9 Secondary malignant neoplasm of unspecified site (principal); G89.29 Other chronic pain; R10.31 Right lower quadrant pain; I10 Essential (primary) hypertension; Z91.048 Other nonmedicinal substance allergy status; Z87.891 Personal history of nicotine dependence; Z88.8 Allergy status to other drugs, medicaments and biological substances; Z88.6 Allergy status to analgesic agent; Z91.040 Latex allergy status; Z88.5 Allergy status to narcotic agent; Z79.899 Other long term (current) drug therapy
CPT/HCPCS: 36415; 80053; 82150; 83605; 83690; 85025; 81003; 99284; 96374; 96375; 96376; 96361; J2270; J1170

== ENCOUNTER 2021-11-12 16:40 | Inpatient (IN) | payer MEDICARE, OTHER ==
[2021-11-12] MEDS ORDERED: HYDROmorphone 1 MG/ML 1 ML SYRINGE IVP STA (18:14)
[2021-11-12] MEDS ORDERED: MAGNESIUM CITRATE 296 ML BOTTLE PO ONE (19:50)
--- NOTE | 2021-11-12 19:50 | ED ---
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 Patient has been seen multiple times in the emergency room for similar complaint. She had a CT performed on the and was found to have new adenopathy. She was started on Cranks and then progressed to Percocets. She has been seen in the emergency department for pain control as she now states that the Percocets are not even helping. She describes it as a sharp, constant stabbing pain behind her urostomy. Her urostomy site is clean and dry. Urine output has been consistent with her normal output. She denies any fevers. Admits to nausea without vomiting. She has had decreased oral intake. She did have laboratory studies performed earlier today. She followed up with her oncologist ordered a PET scan. She is seen in the emergency department before the PET scan was performed. Told that the PET scan would be canceled if she got admitted. She was given a dose of pain medications and left to go have her scan performed. She presents now with worsening pain and states that the dose of Dilaudid didn't help at all. Has not had a bowel movement in the past 4 days. Denies black or bloody stools. No other alleviating, precipitating or modifying factors - Related Data Home Medications Medication Instructions Recorded Confirmed Acetaminophen [Tylenol Extra 1,000 mg PO QID PRN 11/04/21 11/12/21 Strength] Atorvastatin [Lipitor] 20 mg PO TUSA 11/04/21 11/12/21 Doxylamine Succinate [Unisom] 25 mg PO HS PRN 11/04/21 11/12/21 Metoprolol Tartrate [Lopressor] 100 mg PO BID 11/04/21 11/12/21 Multivit-Min/FA/Lycopen/Lutein 1 tab PO DAILY 11/04/21 11/12/21 [Centrum Silver Tablet] Verapamil HCl [Verapamil ER] 120 mg PO DAILY 11/04/21 11/12/21 hydrALAZINE HCL [Apresoline] 10 mg PO BID 11/04/21 11/12/21 lisinopriL 40 mg PO DAILY 11/04/21 11/12/21 Cbd Gel 1 applic TOPICAL QID PRN 11/12/21 11/12/21 Cholecalciferol (Vitamin D3) 75 mcg PO DAILY 11/12/21 11/12/21 [Vitamin D3 (3000 Iu)] Piroxicam 20 mg PO DAILY 11/12/21 11/12/21 Pramipexole [Mirapex] 0.25 mg PO HS PRN 11/12/21 11/12/21 diphenhydrAMINE [Benadryl] 25 mg PO QID PRN 11/12/21 11/12/21 Previous Rx's Medication Instructions Recorded oxyCODONE HCL/ACETAMINOPHEN 1 tab PO Q4HR PRN 3 Days #18 tab 11/10/21 [Percocet 10-325 mg] Lactulose [Cephulac] 20 gm PO BID PRN #500 ml 11/14/21 hydrALAZINE HCL [Apresoline] 50 mg PO TID #90 tab 11/14/21 polyethylene glycoL 3350 [Miralax] 17 gm PO DAILY PRN #30 packet 11/14/21 Allergies Allergy/AdvReac Type Severity Reaction Status Date / Time codeine Allergy Rash/Hives, Verified 11/12/21 18:55 red all over colesevelam [From WelChol] Allergy Unknown Verified 11/12/21 18:55 duloxetine [From Cymbalta] Allergy Unknown Verified 11/12/21 18:55 latex Allergy positive Verified 11/12/21 18:55 allergy testing nickel Allergy positive Verified 11/12/21 18:55 allergy testing tramadol Allergy Unknown Verified 11/12/21 18:55 valsartan [From Diovan] Allergy Unknown Verified 11/12/21 18:55 zolpidem [From Ambien] Allergy Unknown Verified 11/12/21 18:55 Review of Systems ROS Statement: Those systems with pertinent positive or pertinent negative responses have been documented in the HPI. ROS Other: All systems not noted in ROS Statement are negative. Past Medical History Past Medical History: Cancer, GERD/Reflux, Hypertension Additional Past Medical History / Comment(s): 2007-breast cancer with surgery, radiation and Tamoxifen, left kidney and bladder cancer -surgery with chemo and hysterectomy., hx colon polyps., pt has urostomy., states constipation for 3 months, has used suppositories, and enemas, past blood in stool and dark black stools., states pain right abdomen by her stoma. , states abdomen is soft but feels swollen. History of Any Multi-Drug Resistant Organisms: None Reported Past Surgical History: Bladder Surgery, Breast Surgery, Joint Replacement Additional Past Surgical History / Comment(s): 2004 TOTAL RIGHT HIP, 2006 LEFT BREAST LUPECTOMY, 2009 LEFT KIDNEY REMOVED, BLADDER SURGERY WITH UROSTOMY, 2017 TOTAL LEFT HIP. Past Anesthesia/Blood Transfusion Reactions: No Reported Reaction Past Psychological History: No Psychological Hx Reported Smoking Status: Former smoker Past Alcohol Use History: None Reported Past Drug Use History: None Reported - Past Family History Mother Family Medical History: No Reported History General Exam Limitations: physical limitation General appearance: alert, in distress, other (moaning in pain) Head exam: Present: atraumatic, normocephalic, normal inspection Eye exam: Present: normal appearance, PERRL, EOMI. Absent: scleral icterus, conjunctival injection, periorbital swelling ENT exam: Present: normal exam, mucous membranes moist Neck exam: Present: normal inspection. Absent: meningismus, lymphadenopathy Respiratory exam: Present: normal lung sounds bilaterally. Absent: respiratory distress, wheezes, rales, rhonchi, stridor Cardiovascular Exam: Present: regular rate, normal rhythm, normal heart sounds. Absent: systolic murmur, diastolic murmur, rubs, gallop, clicks GI/Abdominal exam: Present: soft, tenderness (right lower quadrant), normal bowel sounds. Absent: distended, guarding, rebound, rigid Extremities exam: Present: normal inspection, full ROM, normal capillary refill. Absent: tenderness, pedal edema, joint swelling, calf tenderness Back exam: Present: normal inspection Neurological exam: Present: alert, oriented X3, CN II-XII intact Psychiatric exam: Present: normal affect, normal mood Skin exam: Present: warm, dry, intact, normal color. Absent: rash Course Vital Signs 11/12/21 11/12/21 11/12/21 17:29 20:08 21:00 Temperature 98.2 F 99.2 F Pulse Rate 80 84 Respiratory 18 20 18 Rate Blood Pressure 191/88 154/80 166/85 O2 Sat by Pulse 98 98 95 Oximetry Medical Decision Making - Medical Decision Making Upon arrival patient was placed into 19. Thorough history and physical exam is performed. I did review the patient's recent encounters. Laboratory studies today are all within normal limits. PET scan has yet to be read. Does appear the patient has significant stool burden the right lower quadrant. She was gi johana a dose of Dilaudid originally. Additionally ordered mag citrate for the patient. She will be admitted for pain control. Spoke with Dr. Teran who agreed to admit the patient. - Lab Data Result diagrams: 11/14/21 07:24 11/14/21 07:24 Lab Results 11/12/21 11/13/21 11/13/21 Range/Units 20:52 06:20 06:20 WBC 6.81 (4.50-10.00) X 10*3/uL RBC 4.32 (4.10-5.20) X 10*6/uL Hgb 13.0 (12.0-15.0) g/dL Hct 42.3 (37.2-46.3) % MCV 97.9 H (80.0-97.0) fL MCH 30.1 (27.0-32.0) pg MCHC 30.7 L (32.0-37.0) g/dL RDW 13.0 (11.5-14.5) % Plt Count 146 (140-440) X 10*3/uL MPV 12.5 H (9.5-12.2) fL Immature Gran % (Auto) 0.6 % Absolute Nucleated RBC 0 (0.00-0.00) X 10*3/uL Neutrophils % 66.1 % Lymphocytes % 14.0 % Monocytes % 19.1 % Eosinophils % 0.1 % Basophils % 0.1 % Immature Gran # 0.04 (0.00-0.04) X 10*3/uL Neutrophils # 4.50 (1.80-7.70) X 10*3/uL Lymphocytes # 0.95 (0.90-5.00) X 10*3/uL Monocytes # 1.30 H (0.20-1.00) X 10*3/uL Eosinophils # 0.01 L (0.04-0.35) X 10*3/uL Basophils # 0.01 (0.00-0.10) X 10*3/uL NRBC/100 WBC Diff 0 (0.0-0.0) /100 WBCS PT (9.9-11.9) sec INR (0.90-1.11) Sodium 139 (135-145) mmol/L Potassium 4.4 (3.5-5.5) mmol/L Chloride 104 (96-109) mmol/L Carbon Dioxide 19.8 L (20.0-27.5) mmol/L Anion Gap 15.20 (10.00-18.00) mmol/L BUN 12.0 (9.0-27.0) mg/dL Creatinine 0.9 (0.6-1.5) mg/dL Est GFR (CKD-EPI)AfAm 72.0 (60.0-200.0) Est GFR (CKD-EPI)NonAf 62.1 (60.0-200.0) BUN/Creatinine Ratio 13.33 (12.00-20.00) Ratio Glucose 104 (70-110) mg/dL Calcium 9.4 (8.7-10.3) mg/dL Magnesium 2.5 H (1.5-2.4) mg/dL Total Bilirubin 0.40 (0.30-1.20) mg/dL AST 23 (13-35) U/L ALT 11 (8-44) U/L Alkaline Phosphatase 71 (41-126) U/L Total Protein 6.3 (6.2-8.2) g/dL Albumin 4.1 (3.8-4.9) g/dL Globulin 2.2 (1.6-3.3) g/dL Albumin/Globulin Ratio 1.86 (1.60-3.17) g/dL Procalcitonin (0.02-0.09) ng/mL Coronavirus (PCR) Not Detected (Not Detectd) 11/13/21 11/13/21 Range/Units 06:20 06:20 WBC (4.50-10.00) X 10*3/uL RBC (4.10-5.20) X 10*6/uL Hgb (12.0-15.0) g/dL Hct (37.2-46.3) % MCV (80.0-97.0) fL MCH (27.0-32.0) pg MCHC (32.0-37.0) g/dL RDW (11.5-14.5) % Plt Count (140-440) X 10*3/uL MPV (9.5-12.2) fL Immature Gran % (Auto) % Absolute Nucleated RBC (0.00-0.00) X 10*3/uL Neutrophils % % Lymphocytes % % Monocytes % % Eosinophils % % Basophils % % Immature Gran # (0.00-0.04) X 10*3/uL Neutrophils # (1.80-7.70) X 10*3/uL Lymphocytes # (0.90-5.00) X 10*3/uL Monocytes # (0.20-1.00) X 10*3/uL Eosinophils # (0.04-0.35) X 10*3/uL Basophils # (0.00-0.10) X 10*3/uL NRBC/100 WBC Diff (0.0-0.0) /100 WBCS PT 11.5 (9.9-11.9) sec INR 1.05 (0.90-1.11) Sodium (135-145) mmol/L Potassium (3.5-5.5) mmol/L Chloride (96-109) mmol/L Carbon Dioxide (20.0-27.5) mmol/L Anion Gap (10.00-18.00) mmol/L BUN (9.0-27.0) mg/dL Creatinine (0.6-1.5) mg/dL Est GFR (CKD-EPI)AfAm (60.0-200.0) Est GFR (CKD-EPI)NonAf (60.0-200.0) BUN/Creatinine Ratio (12.00-20.00) Ratio Glucose (70-110) mg/dL Calcium (8.7-10.3) mg/dL Magnesium (1.5-2.4) mg/dL Total Bilirubin (0.30-1.20) mg/dL AST (13-35) U/L ALT (8-44) U/L Alkaline Phosphatase (41-126) U/L Total Protein (6.2-8.2) g/dL Albumin (3.8-4.9) g/dL Globulin (1.6-3.3) g/dL Albumin/Globulin Ratio (1.60-3.17) g/dL Procalcitonin 0.04 (0.02-0.09) ng/mL Coronavirus (PCR) (Not Detectd) Disposition Clinical Impression: Abdominal pain Disposition: ADMITTED IP TO THIS HOSP Condition: Stable Is patient prescribed a controlled substance at d/c from ED?: No Time of Disposition: 20:08
[2021-11-12] MEDS ORDERED: HYDROmorphone 1 MG/ML 1 ML SYRINGE IVP PRN (20:08)
[2021-11-12] MEDS ORDERED: NALOXONE 0.4 MG/ML 1 ML VIAL IV PRN (20:08)
[2021-11-12] MEDS: SODIUM CHLORIDE 0.9% 1,000 ML IV SCH (20:10)
[2021-11-12] MEDS ORDERED: MORPHINE SULFATE 4 MG/ML SYRINGE IVP STA (21:00)
[2021-11-12] MEDS ORDERED: MORPHINE SULFATE 2 MG/ML SYRINGE IVP STA (23:18)
[2021-11-12] MEDS ORDERED: diphenhydrAMINE 25 MG CAP PO PRN ×2 (23:18)
[2021-11-12] MEDS ORDERED: PRAMIPEXOLE 0.25 MG TAB PO PRN (23:18)
[2021-11-12] MEDS ORDERED: ACETAMINOPHEN TAB 325 MG TAB PO PRN (23:18)
[2021-11-12] MEDS ORDERED: ONDANSETRON 4 MG/2 ML VIAL IVP PRN (23:22)
[2021-11-13] MEDS: MORPHINE SULFATE 4 MG/ML SYRINGE IVP PRN ×3 (04:20→12:44)
[2021-11-13] MEDS: HEPARIN SODIUM,PORCINE/PF 5,000 UNIT/0.5 ML SYRINGE SQ SCH ×2 (08:15→21:00)
[2021-11-13] MEDS: FAMOTIDINE 20 MG/2 ML VIAL IV SCH ×2 (08:15→20:59)
[2021-11-13] MEDS: VIT A,C & E-LUTEIN-MINERALS 1 EACH TAB PO SCH (08:15)
[2021-11-13] MEDS: VERAPAMIL SR 120 MG TABLET.ER PO SCH (08:16)
[2021-11-13] MEDS: METOPROLOL TARTRATE 50 MG TAB PO SCH ×3 (08:16→21:00)
[2021-11-13] MEDS: hydrALAZINE HCL 10 MG TAB PO SCH ×2 (08:16→21:00)
[2021-11-13] MEDS: lisinopriL 20 MG TAB PO SCH (08:16)
[2021-11-13] MEDS: SODIUM CHLORIDE 0.9% 1,000 ML IV SCH (08:17)
[2021-11-13 09:10] LABS: INR 1.05 (0.90-1.11); Prothrombin Time 11.5 sec (9.9-11.9)
[2021-11-13 09:25] LABS: Basophils # (A) 0.01 X 10*3/uL (0.00-0.10); Basophils % (A) 0.1 %; Eosinophils # (A) 0.01 X 10*3/uL (0.04-0.35); Eosinophils % (A) 0.1 %; HCT 42.3 % (37.2-46.3); Lymphocytes # (A) 0.95 X 10*3/uL (0.90-5.00); MCH 30.1 pg (27.0-32.0); MCHC 30.7 g/dL (32.0-37.0); MCV 97.9 fL (80.0-97.0); Mean Platelet Volume 12.5 fL (9.5-12.2); Monocytes % (A) 19.1 %; Neutrophils % (A) 66.1 %; Platelet Count 146 X 10*3/uL (140-440); RBC 4.32 X 10*6/uL (4.10-5.20); WBC 6.81 X 10*3/uL (4.50-10.00)
[2021-11-13 09:34] VITALS: BMI 34.2
[2021-11-13 10:07] LABS: Magnesium 2.5 mg/dL (1.5-2.4)
[2021-11-13 10:26] LABS: Albumin 4.1 g/dL (3.8-4.9); Albumin/Globulin Ratio 1.86 (1.60-3.17); Anion Gap 15.2 mmol/L (10.00-18.00); BUN/Creat Ratio 13.33 Ratio (12.00-20.00); Calcium 9.4 mg/dL (8.7-10.3); Carbon Dioxide 19.8 mmol/L (20.0-27.5); Globulin 2.2 g/dL (1.6-3.3); Non-African American GFR(CKD) 62.1 (60.0-200.0); Potassium 4.4 mmol/L (3.5-5.5); Total Bilirubin 0.4 mg/dL (0.30-1.20); Total Protein 6.3 g/dL (6.2-8.2)
[2021-11-13] MEDS ORDERED: bisacodyL 10 MG SUPP RECTAL STA (10:27)
[2021-11-13] MEDS ORDERED: oxyCODONE-APAP 10-325MG 1 EACH TAB PO PRN (10:37)
--- NOTE | 2021-11-13 11:11 | P.HPIM ---
History of Present Illness Is a pleasant 76-year-old the female with a history of bladder cancer in the past and had a left nephro cystosc ureterectomy and has cystostomy with complaints of pain in the bilateral lower abdominal quadrants sharp in nature moderate severity nonradiating. Patient denied any fever chills patient has been constipated for last few days. Patient is really get morphine patient does use Percocet at home. Patient had a recent PET scan results of which are still pending patient also had a CAT scan on 15 which showed retroperitoneal lymphadenopathy beyond which nothing significant was appreciated. REVIEW OF SYSTEMS: CONSTITUTIONAL: No fever, no malaise, no fatigue. HEENT: No recent visual problems or hearing problems. Denied any sore throat. CARDIOVASCULAR: No chest pain, orthopnea, PND, no palpitations, no syncope. PULMONARY: No shortness of breath, no cough, no hemoptysis. GASTROINTESTINAL: As mentioned in HPI NEUROLOGICAL: No headaches, no weakness, no numbness. HEMATOLOGICAL: Denies any bleeding or petechiae. GENITOURINARY: Denies any burning micturition, frequency, or urgency. MUSCULOSKELETAL/RHEUMATOLOGICAL: Denies any joint pain, swelling, or any muscle pain. ENDOCRINE: Denies any polyuria or polydipsia. The rest of the 14-point review of systems is negative. PHYSICAL EXAMINATION: GENERAL: The patient is alert and oriented x3, not in any acute distress. Well developed, well nourished. HEENT: Pupils are round and equally reacting to light. EOMI. No scleral icterus. No conjunctival pallor. Normocephalic, atraumatic. No pharyngeal erythema. No thyromegaly. CARDIOVASCULAR: S1 and S2 present. No murmurs, rubs, or gallops. PULMONARY: Chest is clear to auscultation, no wheezing or crackles. ABDOMEN: Soft, nontender, nondistended,bowel sounds present. No palpable organomegaly. MUSCULOSKELETAL: No joint swelling or deformity. EXTREMITIES: No cyanosis, clubbing, or pedal edema. NEUROLOGICAL: Gross neurological examination did not reveal any focal deficits. SKIN: No rashes. Assessment and plan -Abdominal pain: Secondary to constipation and the patient was given Dulcolax watkins ppository and lactulose. We will order Toradol as a patient to avoid opiate pain medications as they can cause constipation or worsen the constipation. Oncology evaluated the patient because of that retroperitoneal lymphadenopathy and history of bladder cancer in the past. PET scan results are still pending we'll obtain an abdominal x-ray -Hypertension uncontrolled elevated blood pressures secondary to pain -GERD -Bladder cancer in remission until now lymphadenopathy as mentioned above DVT prophylaxis:Lovenox Past Medical History Past Medical History: Cancer, GERD/Reflux, Hypertension Additional Past Medical History / Comment(s): 2007-breast cancer with surgery, radiation and Tamoxifen, left kidney and bladder cancer -surgery with chemo and hysterectomy., hx colon polyps., pt has urostomy., states constipation for 3 mo nths, has used suppositories, and enemas, past blood in stool and dark black stools., states pain right abdomen by her stoma. , states abdomen is soft but feels swollen. History of Any Multi-Drug Resistant Organisms: None Reported Past Surgical History: Bladder Surgery, Breast Surgery, Joint Replacement Additional Past Surgical History / Comment(s): 2004 TOTAL RIGHT HIP, 2006 LEFT BREAST LUPECTOMY, 2009 LEFT KIDNEY REMOVED, BLADDER SURGERY WITH UROSTOMY, 2016 TOTAL LEFT HIP. Past Anesthesia/Blood Transfusion Reactions: No Reported Reaction Past Psychological History: No Psychological Hx Reported Smoking Status: Former smoker Past Alcohol Use History: None Reported Additional Past Alcohol Use History / Comment(s): QUIT SMOKING 2004, STARTED AGE 18, 1 PACK EVERY 3 DAYS. Past Drug Use History: None Reported Additional Drug Use History / Comment(s): CBD OIL TOPICAL - Past Family History Mother Family Medical History: No Reported History Medications and Allergies Home Medications Medication Instructions Recorded Confirmed Type Acetaminophen [Tylenol Extra 1,000 mg PO QID PRN 11/04/21 11/12/21 History Strength] Atorvastatin [Lipitor] 20 mg PO TUSA 11/04/21 11/12/21 History Doxylamine Succinate [Unisom] 25 mg PO HS PRN 11/04/21 11/12/21 History Metoprolol Tartrate [Lopressor] 100 mg PO BID 11/04/21 11/12/21 History Multivit-Min/FA/Lycopen/Lutein 1 tab PO DAILY 11/04/21 11/12/21 History [Centrum Silver Tablet] Verapamil HCl [Verapamil ER] 120 mg PO DAILY 11/04/21 11/12/21 History hydrALAZINE HCL [Apresoline] 10 mg PO BID 11/04/21 11/12/21 History lisinopriL 40 mg PO DAILY 11/04/21 11/12/21 History oxyCODONE HCL/ACETAMINOPHEN 1 tab PO Q4HR PRN 3 Days #18 tab 11/10/21 11/12/21 Rx [Percocet 10-325 mg] Cbd Gel 1 applic TOPICAL QID PRN 11/12/21 11/12/21 History Cholecalciferol (Vitamin D3) 75 mcg PO DAILY 11/12/21 11/12/21 History [Vitamin D3 (3000 Iu)] Piroxicam 20 mg PO DAILY 11/12/21 11/12/21 History Pramipexole [Mirapex] 0.25 mg PO HS PRN 11/12/21 11/12/21 History diphenhydrAMINE [Benadryl] 25 mg PO QID PRN 11/12/21 11/12/21 History Allergies Allergy/AdvReac Type Severity Reaction Status Date / Time codeine Allergy Rash/Hives, Verified 11/12/21 18:55 red all over colesevelam [From WelChol] Allergy Unknown Verified 11/12/21 18:55 duloxetine [From Cymbalta] Allergy Unknown Verified 11/12/21 18:55 latex Allergy positive Verified 11/12/21 18:55 allergy testing nickel Allergy positive Verified 11/12/21 18:55 allergy testing tramadol Allergy Unknown Verified 11/12/21 18:55 valsartan [From Diovan] Allergy Unknown Verified 11/12/21 18:55 zolpidem [From Ambien] Allergy Unknown Verified 11/12/21 18:55 Physical Exam Vitals: Vital Signs Temp Pulse Pulse Pulse Resp BP BP 11/13/21 07:46 70 11/13/21 07:00 98.7 F 72 17 198/82 11/13/21 02:00 98.3 F 49 L 15 186/76 11/12/21 21:47 98.1 F 74 19 191/58 11/12/21 21:00 99.2 F 84 18 166/85 11/12/21 20:08 20 154/80 11/12/21 17:29 98.2 F 80 18 191/88 Pulse Ox 11/13/21 07:46 11/13/21 07:00 95 11/13/21 02:00 98 11/12/21 21:47 97 11/12/21 21:00 95 11/12/21 20:08 98 11/12/21 17:29 98 Intake and Output 11/12/21 11/13/21 11/13/21 22:59 06:59 14:59 Intake Total 1064 Output Total 650 Balance 414 Intake: Oral 1064 Output: Urine 650 Other: Voiding Method Ileal Conduit (Right) # Voids 2 Weight 96.1 kg 96.1 kg Results CBC & Chem 7: 11/13/21 06:20 11/13/21 06:20 Labs: Abnormal Lab Results - Last 24 Hours (Table) 11/13/21 11/13/21 Range/Units 06:20 06:20 MCV 97.9 H (80.0-97.0) fL MCHC 30.7 L (32.0-37.0) g/dL MPV 12.5 H (9.5-12.2) fL Monocytes # 1.30 H (0.20-1.00) X 10*3/uL Eosinophils # 0.01 L (0.04-0.35) X 10*3/uL Carbon Dioxide 19.8 L (20.0-27.5) mmol/L Magnesium 2.5 H (1.5-2.4) mg/dL Thrombosis Risk Factor Assmnt - Choose All That Apply Any of the Below Risk Factors Present?: Yes Each Factor Represents 1 point: Obesity (BMI >25) Other Risk Factors: Yes Each Risk Factor Represents 2 Points: Malignancy Each Risk Factor Represents 3 Points: Age 75 years or older Other congenital or acquired thrombophilia - If yes, enter type in comment: No Thrombosis Risk Factor Assessment Total Risk Factor Score: 6 Thrombosis Risk Factor Assessment Level: High Risk
--- NOTE | 2021-11-13 11:34 | P.CONS ---
History of Present Illness - Reason for Consult Consult date: 11/13/21 Abdominopelvic pain. Retro-peritoneal mass - History of Present Illness The patient is 76-year-old white female with a complicated past oncologic history. The patient had an early stage breast cancer treated with lumpectomy in 2006, followed by radiation and 5 years of tamoxifen. In 2009 she was diagnosed with urothelial cancer, treated with resection of the bladder, left ureter and left kidney, with urostomy creation. The patient states that she received chemotherapy after surgery. The patient is followed by Dr. Malave in the outpatient setting. He states that about 6-7 weeks prior to this admission she developed pain which was mostly in the right lower quadrant, just below her urostomy. Around this time she also developed significant constipation. She states that the pain has been episodic but has become more frequent. She describes this as radiating around to the back, as sometimes across to the left side. However the right lower quadrant remains the most prominent site. The patient was previously in the ER for the same, and was discharged on [place]. However this was not effective. She was then changed to Percocets which according to her was not very effective either. She continued to have significant problems with constipation, not responding well to outpatient treatment. Computed tomography scan on 11/04/21 showed abnormal soft tissue around the aortic bifurcation, measuring 3 x 2.1 x 5.7 cm. She was seen by , and had a PET scan ordered, which was performed on 11/12/21. She actually came to the emergency room prior to the PET scan because of intractable pain. As a PET scan would have to be postponed she was admitted, she went to have the PET scan first after receiving pain medications, and came back to the ER after which she was admitted Incidentally CT scans from 11/04/21 had shown significant amount of retained stool. Review of Systems Constitutional: Reports chronic pain, Reports weight gain Eyes: denies blurred vision, denies pain Ears: deny: decreased hearing, ear discharge, earache, tinnitus Ears, nose, mouth and throat: Denies headache, Denies sore throat Breasts: Reports as per HPI Cardiovascular: Denies chest pain, Denies shortness of breath Respiratory: Denies cough Gastrointestinal: Reports abdominal pain, Reports constipation Genitourinary: Reports as per HPI Menstruation: Reports postmenopausal Musculoskeletal: Denies myalgias Integumentary: Denies pruritus, Denies rash Neurological: Denies numbness, Denies weakness Psychiatric: Denies anxiety, Denies depression Endocrine: Reports weight change Hematologic/Lymphatic: Reports as per HPI Past Medical History Past Medical History: Cancer, GERD/Reflux, Hypertension Additional Past Medical History / Comment(s): 2007-breast cancer with surgery, radiation and Tamoxifen, left kidney and bladder cancer -surgery with chemo and hysterectomy., hx colon polyps., pt has urostomy., states constipation for 3 months, has used suppositories, and enemas, past blood in stool and dark black stools., states pain right abdomen by her stoma. , states abdomen is soft but feels swollen. History of Any Multi-Drug Resistant Organisms: None Reported Past Surgical History: Bladder Surgery, Breast Surgery, Joint Replacement Additional Past Surgical History / Comment(s): 2004 TOTAL RIGHT HIP, 2006 LEFT BREAST LUPECTOMY, 2009 LEFT KIDNEY REMOVED, BLADDER SURGERY WITH UROSTOMY, 2016 TOTAL LEFT HIP. Past Anesthesia/Blood Transfusion Reactions: No Reported Reaction Past Psychological History: No Psychological Hx Reported Smoking Status: Former smoker Past Alcohol Use History: None Reported Additional Past Alcohol Use History / Comment(s): QUIT SMOKING 2004, STARTED AGE 18, 1 PACK EVERY 3 DAYS. Past Drug Use History: None Reported Additional Drug Use History / Comment(s): CBD OIL TOPICAL - Past Family History Mother Family Medical History: No Reported History Medications and Allergies Home Medications Medication Instructions Recorded Confirmed Type Acetaminophen [Tylenol Extra 1,000 mg PO QID PRN 11/04/21 11/12/21 History Strength] Atorvastatin [Lipitor] 20 mg PO TUSA 11/04/21 11/12/21 History Doxylamine Succinate [Unisom] 25 mg PO HS PRN 11/04/21 11/12/21 History Metoprolol Tartrate [Lopressor] 100 mg PO BID 11/04/21 11/12/21 History Multivit-Min/FA/Lycopen/Lutein 1 tab PO DAILY 11/04/21 11/12/21 History [Centrum Silver Tablet] Verapamil HCl [Verapamil ER] 120 mg PO DAILY 11/04/21 11/12/21 History hydrALAZINE HCL [Apresoline] 10 mg PO BID 11/04/21 11/12/21 History lisinopriL 40 mg PO DAILY 11/04/21 11/12/21 History oxyCODONE HCL/ACETAMINOPHEN 1 tab PO Q4HR PRN 3 Days #18 tab 11/10/21 11/12/21 Rx [Percocet 10-325 mg] Cbd Gel 1 applic TOPICAL QID PRN 11/12/21 11/12/21 History Cholecalciferol (Vitamin D3) 75 mcg PO DAILY 11/12/21 11/12/21 History [Vitamin D3 (3000 Iu)] Piroxicam 20 mg PO DAILY 11/12/21 11/12/21 History Pramipexole [Mirapex] 0.25 mg PO HS PRN 11/12/21 11/12/21 History diphenhydrAMINE [Benadryl] 25 mg PO QID PRN 11/12/21 11/12/21 History Allergies Allergy/AdvReac Type Severity Reaction Status Date / Time codeine Allergy Rash/Hives, Verified 11/12/21 18:55 red all over colesevelam [From WelChol] Allergy Unknown Verified 11/12/21 18:55 duloxetine [From Cymbalta] Allergy Unknown Verified 11/12/21 18:55 latex Allergy positive Verified 11/12/21 18:55 allergy testing nickel Allergy positive Verified 11/12/21 18:55 allergy testing tramadol Allergy Unknown Verified 11/12/21 18:55 valsartan [From Diovan] Allergy Unknown Verified 11/12/21 18:55 zolpidem [From Ambien] Allergy Unknown Verified 11/12/21 18:55 Physical Exam Vitals: Vital Signs Temp Pulse Pulse Pulse Resp BP BP 11/13/21 07:46 70 11/13/21 07:00 98.7 F 72 17 198/82 11/13/21 02:00 98.3 F 49 L 15 186/76 11/12/21 21:47 98.1 F 74 19 191/58 11/12/21 21:00 99.2 F 84 18 166/85 11/12/21 20:08 20 154/80 11/12/21 17:29 98.2 F 80 18 191/88 Pulse Ox 11/13/21 07:46 11/13/21 07:00 95 11/13/21 02:00 98 11/12/21 21:47 97 11/12/21 21:00 95 11/12/21 20:08 98 11/12/21 17:29 98 Intake and Output 11/12/21 11/13/21 11/13/21 22:59 06:59 14:59 Intake Total 1064 Output Total 650 Balance 414 Intake: Oral 1064 Output: Urine 650 Other: Voiding Method Ileal Conduit (Right) # Voids 2 Weight 96.1 kg 96.1 kg - Constitutional General appearance: no acute distress - EENT Eyes: EOMI, PERRLA ENT: hearing grossly normal, normal oropharynx - Neck Neck: no lymphadenopathy - Respiratory Respiratory: bilateral: CTA - Cardiovascular Rhythm: regular Heart sounds: normal: S1, S2 - Gastrointestinal Right lower quadrant urostomy. Possible small hernia around the ostomy. This is easily compressible. No significant tenderness General gastrointestinal: normal bowel sounds, soft - Integumentary Integumentary: normal - Neurologic Neurologic: CNII-XII intact - Musculoskeletal Musculoskeletal: generalized weakness, strength equal bilaterally - Psychiatric Psychiatric: A&O x's 3, appropriate affect Results CBC & Chem 7: 11/13/21 06:20 11/13/21 06:20 Labs: Abnormal Lab Results - Last 24 Hours (Table) 11/13/21 11/13/21 Range/Units 06:20 06:20 MCV 97.9 H (80.0-97.0) fL MCHC 30.7 L (32.0-37.0) g/dL MPV 12.5 H (9.5-12.2) fL Monocytes # 1.30 H (0.20-1.00) X 10*3/uL Eosinophils # 0.01 L (0.04-0.35) X 10*3/uL Carbon Dioxide 19.8 L (20.0-27.5) mmol/L Magnesium 2.5 H (1.5-2.4) mg/dL CT scan - abdomen: report reviewed, image reviewed CT scan - pelvis: report reviewed, image reviewed Assessment and Plan (1) Abdominal pain Narrative/Plan: History as described. This is a comparatively new onset. The patient's c omputed tomography scan on 11/04/21 showed retroperitoneal mass. However the location of the mass does not appear to correlate typically with the location of the patient's pain, which is mostly in the right lower quadrant with radiation from there. While referred pain from the retroperitoneal mass is a possibility, a different cause is clinically more likely. One possibility could be constipation with some soft tissue damage around the area of the ostomy because of straining. - The patient appeared to be fairly comfortable currently, on IV morphine. Await results of PET scan. Abdominal x-ray will be ordered. Continue to work on treating constipation. Case discussed with the admitting service. Hold off on starting a long-acting medication, till etiology is more definitely established Current Visit: Yes Status: Acute Code(s): R10.9 - UNSPECIFIED ABDOMINAL PAIN SNOMED Code(s): 47211945 (2) Retroperitoneal mass Narrative/Plan: The patient's computed tomography scan had revealed a sizable retroperitoneal mass. This is felt to be quite suspicious for malignancy, though it is not clear if this is the cause of her pain, as noted above. The patient's PET scan has been performed and results are pending. - Vision does have prior history of malignancies, but given the time elapsed, recurrence of the same is less likely though not totally ruled out. If the PET scan does confirm findings suspicious for malignancy, then the patient will need a biopsy, as clinically a new primary would be felt to be more likely. Current Visit: Yes Status: Acute Code(s): R19.00 - INTRA-ABD AND PELVIC SWELLING, MASS AND LUMP, UNSP SITE SNOMED Code(s): 34353698
--- NOTE | 2021-11-13 11:45 | XR ---
EXAMINATION TYPE: XR abdomen acute w cxr DATE OF EXAM: 11/13/2021 COMPARISON: Nuclear medicine PET/CT 11/12/2021, chest x-ray 04/01/2014 HISTORY: Abdominal pain TECHNIQUE: Supine, upright, and frontal chest views of the abdomen and chest are obtained on 4 image s. FINDINGS: Postop changes are noted to the bilateral hips, multiple surgical clips are present within the pelvis. Degenerative disc changes are present in the visualized spine. Chest x-ray shows no acut e abnormality, prominent epicardial fat pad noted at the right cardiophrenic angle. There is no evidence for pneumoperitoneum. The bowel gas pattern is unremarkable as there is air throughout nondilated small and large bowel. No sizeable air fluid levels. There is retained stool present along the distribution of the colon. No mass effects are seen. No unusual calcifications. IMPRESSION: Correlate for possible fecal stasis. Postop changes.
[2021-11-13] MEDS: LACTULOSE 20 GM/30 ML CUP PO PRN (12:54)
[2021-11-13] MEDS: KETOROLAC 30 MG/ML 1 ML VIAL IVP PRN (15:09)
[2021-11-14] MEDS: SODIUM CHLORIDE 0.9% 1,000 ML IV SCH (00:02)
[2021-11-14 03:25] VITALS: RESP 16
[2021-11-14] MEDS: KETOROLAC 30 MG/ML 1 ML VIAL IVP PRN (05:38)
[2021-11-14] MEDS: METOPROLOL TARTRATE 50 MG TAB PO SCH (08:24)
[2021-11-14] MEDS: VIT A,C & E-LUTEIN-MINERALS 1 EACH TAB PO SCH (08:24)
[2021-11-14] MEDS: FAMOTIDINE 20 MG/2 ML VIAL IV SCH (08:24)
[2021-11-14] MEDS: lisinopriL 20 MG TAB PO SCH (08:24)
[2021-11-14] MEDS: VERAPAMIL SR 120 MG TABLET.ER PO SCH (08:24)
[2021-11-14] MEDS: hydrALAZINE HCL 10 MG TAB PO SCH (08:24)
[2021-11-14 08:30] VITALS: BP 183/76; PULSE 65; TEMP 97.9
[2021-11-14] MEDS: LACTULOSE 20 GM/30 ML CUP PO PRN (08:34)
[2021-11-14] MEDS ORDERED: ENOXAPARIN 40 MG/0.4 ML SYRINGE SQ SCH (09:00)
--- NOTE | 2021-11-14 10:18 | P.DS ---
Providers Date of admission: 11/13/21 09:57 Attending physician: Wilson Teran MD Consults: 11/12/21 20:09 Consult Physician Urgent Consulting Provider: Rhett Gaffney Consult Reason/Comments: abd pain, new adenopathy Do you want consulting provider notified?: Yes Primary care physician: Solomon Thomas MD Hospital Course: pleasant 76-year-old the female with a history of bladder cancer in the past and had a left nephro cystosc ureterectomy and has cystostomy with complaints of pain in the bilateral lower abdominal quadrants sharp in nature moderate severity nonradiating. Patient denied any fever chills patient has been constipated for last few days. Patient is really get morphine patient does use Percocet at home. Patient had a recent PET scan results of which are still pending patient also had a CAT scan on which showed retroperitoneal lymphadenopathy beyond which nothing significant was appreciated. 11/14/2021 Patient's abdominal pain completely resolved abdominal x-ray showed significant stool which is contributing to her abdominal pain patient had his bowel movement yesterday still has significant stool patient the will be discharged today on lactulose and MiraLAX on as-needed basis. Patient appears to have opiate- induced constipation. The patient will follow with oncology. Patient's blood pressure is elevated because of IV then pain which is expected to improve patien t was started on hydralazine 50 mg 3 times a day as well. Patient will benefit from a diuretic need to be considered as an outpatient PHYSICAL EXAMINATION: GENERAL: The patient is alert and oriented x3, not in any acute distress. Well developed, well nourished. HEENT: Pupils are round and equally reacting to light. EOMI. No scleral icterus. No conjunctival pallor. Normocephalic, atraumatic. No pharyngeal erythema. No thyromegaly. CARDIOVASCULAR: S1 and S2 present. No murmurs, rubs, or gallops. PULMONARY: Chest is clear to auscultation, no wheezing or crackles. ABDOMEN: Soft, nontender, nondistended,bowel sounds present. No palpable organomegaly. MUSCULOSKELETAL: No joint swelling or deformity. EXTREMITIES: No cyanosis, clubbing, or pedal edema. NEUROLOGICAL: Gross neurological examination did not reveal any focal deficits. SKIN: No rashes. Assessment and plan -Abdominal pain: Secondary to constipation -Hypertension uncontrolled elevated blood pressures -GERD -Bladder cancer in remission until now lymphadenopathy as mentioned above Patient Condition at Discharge: Stable Plan - Discharge Summary New Discharge Prescriptions: New hydrALAZINE HCL [Apresoline] 50 mg PO TID #90 tab Lactulose [Cephulac] 20 gm PO BID PRN #500 ml PRN Reason: Constipation polyethylene glycoL 3350 [Miralax] 17 gm PO DAILY PRN #30 packet PRN Reason: Constipation Continue Verapamil HCl [Verapamil ER] 120 mg PO DAILY lisinopriL 40 mg PO DAILY Acetaminophen [Tylenol Extra Strength] 1,000 mg PO QID PRN PRN Reason: Pain Multivit-Min/FA/Lycopen/Lutein [Centrum Silver Tablet] 1 tab PO DAILY oxyCODONE HCL/ACETAMINOPHEN [Percocet 10-325 mg] 1 tab PO Q4HR PRN 3 Days #18 tab PRN Reason: Pain diphenhydrAMINE [Benadryl] 25 mg PO QID PRN PRN Reason: Allergy Symptoms Cbd Gel 1 applic TOPICAL QID PRN PRN Reason: SORE JOINTS hydrALAZINE HCL [Apresoline] 10 mg PO BID Atorvastatin [Lipitor] 20 mg PO TUSA Metoprolol Tartrate [Lopressor] 100 mg PO BID Doxylamine Succinate [Unisom] 25 mg PO HS PRN PRN Reason: Insomnia Pramipexole [Mirapex] 0.25 mg PO HS PRN PRN Reason: RESTLESS LEGS Cholecalciferol (Vitamin D3) [Vitamin D3 (3000 Iu)] 75 mcg PO DAILY Piroxicam 20 mg PO DAILY Discharge Medication List Acetaminophen [Tylenol Extra Strength] 1,000 mg PO QID PRN 11/04/21 [History] Atorvastatin [Lipitor] 20 mg PO TUSA 11/04/21 [History] Doxylamine Succinate [Unisom] 25 mg PO HS PRN 11/04/21 [History] Metoprolol Tartrate [Lopressor] 100 mg PO BID 11/04/21 [History] Multivit-Min/FA/Lycopen/Lutein [Centrum Silver Tablet] 1 tab PO DAILY 11/04/21 [History] Verapamil HCl [Verapamil ER] 120 mg PO DAILY 11/04/21 [History] hydrALAZINE HCL [Apresoline] 10 mg PO BID 11/04/21 [History] lisinopriL 40 mg PO DAILY 11/04/21 [History] oxyCODONE HCL/ACETAMINOPHEN [Percocet 10-325 mg] 1 tab PO Q4HR PRN 3 Days #18 tab 11/10/21 [Rx] Cbd Gel 1 applic TOPICAL QID PRN 11/12/21 [History] Cholecalciferol (Vitamin D3) [Vitamin D3 (3000 Iu)] 75 mcg PO DAILY 11/12/21 [History] Piroxicam 20 mg PO DAILY 11/12/21 [History] Pramipexole [Mirapex] 0.25 mg PO HS PRN 11/12/21 [History] diphenhydrAMINE [Benadryl] 25 mg PO QID PRN 11/12/21 [History] Lactulose [Cephulac] 20 gm PO BID PRN #500 ml 11/14/21 [Rx] hydrALAZINE HCL [Apresoline] 50 mg PO TID #90 tab 11/14/21 [Rx] polyethylene glycoL 3350 [Miralax] 17 gm PO DAILY PRN #30 packet 11/14/21 [Rx] Follow up Appointment(s)/Referral(s): Solomon Thomas MD [Primary Care Provider] - 3 Days Fer Malave MD [STAFF PHYSICIAN] - 1 Week Discharge Disposition: HOME SELF-CARE
[2021-11-14 11:06] LABS: HCT 36.6 % (37.2-46.3); HGB 11.7 g/dL (12.0-15.0); MCH 30.7 pg (27.0-32.0); MCV 96.1 fL (80.0-97.0); Mean Platelet Volume 12.2 fL (9.5-12.2); Platelet Count 136 X 10*3/uL (140-440); RBC 3.81 X 10*6/uL (4.10-5.20); RDW 13.1 % (11.5-14.5); WBC 3.77 X 10*3/uL (4.50-10.00)
[2021-11-14 11:36] LABS: African American GFR (CKD) 63.4 (60.0-200.0); Anion Gap 10.2 mmol/L (10.00-18.00); BUN/Creat Ratio 14.8 Ratio (12.00-20.00); Blood Urea Nitrogen 14.8 mg/dL (9.0-27.0); Carbon Dioxide 24.8 mmol/L (20.0-27.5); Non-African American GFR(CKD) 54.7 (60.0-200.0); Potassium 3.9 mmol/L (3.5-5.5)
== END 2021-11-14 11:34 | disposition home or self-care (01) | DRG 392 ==
LOC: EC 16:40 → 6NMEDSUR 20:08 → OBSVTOIN 11-13 09:57
PROVIDERS: ADMIT Internal Medicine; ATTEND Internal Medicine
DX: K59.03 Drug induced constipation (principal); Z93.6 Other artificial openings of urinary tract status; Z20.822 Contact with and (suspected) exposure to COVID-19; I10 Essential (primary) hypertension; T40.605A Adverse effect of unspecified narcotics, initial encounter; K66.9 Disorder of peritoneum, unspecified; K21.9 Gastro-esophageal reflux disease without esophagitis; R59.9 Enlarged lymph nodes, unspecified; E66.9 Obesity, unspecified; Z68.34 Body mass index [BMI] 34.0-34.9, adult; Z79.1 Long term (current) use of non-steroidal anti-inflammatories (NSAID); Z79.899 Other long term (current) drug therapy; Z87.891 Personal history of nicotine dependence; Z85.51 Personal history of malignant neoplasm of bladder; Z85.3 Personal history of malignant neoplasm of breast; Z90.12 Acquired absence of left breast and nipple; Z92.3 Personal history of irradiation; Z92.21 Personal history of antineoplastic chemotherapy; Z90.710 Acquired absence of both cervix and uterus; Z86.010 Personal history of colon polyps; Z90.5 Acquired absence of kidney; Z96.643 Presence of artificial hip joint, bilateral; Z85.54 Personal history of malignant neoplasm of ureter; Z98.890 Other specified postprocedural states; Z71.3 Dietary counseling and surveillance; Z91.040 Latex allergy status; Z88.5 Allergy status to narcotic agent; Z88.8 Allergy status to other drugs, medicaments and biological substances; Z91.048 Other nonmedicinal substance allergy status
CPT/HCPCS: 36415; 74022; 78815; 80048; 80053; 81003; 82150; 83605; 83690; 83735; 84145; 85025; 85027; 85610; 87635; 96361; 96374; 96375; 96376; 99284

== ENCOUNTER → 2021-11-12 | Outpatient (CLI) | payer MEDICARE, OTHER ==
--- NOTE | 2021-11-13 11:45 | PE ---
EXAMINATION TYPE: PET CT fusion skull to thigh DATE OF EXAM: 11/12/2021 COMPARISON: Prior PET/CT June 24, 2018. Most recent CT November 04, 2021 and older CTs HISTORY: History of left breast cancer 2005. History of bladder cancer and left-sided nephrectomy [address] TECHNIQUE: Following the intravenous administration of 9.35 mCi of F-18 FDG, whole body images are p erformed from the skull base to the midthigh. Images are reviewed on the computer in the coronal, ax ial, and sagittal planes. Reconstructed rotating images are created on independent workstation and r eviewed on the computer. A localization and attenuation correction CT is performed in conjunction w ith the PET scan. Blood glucose level equals 111. SCAN: Subsequent Scan FINDINGS: SKULL BASE AND NECK: Symmetric mild uptake at level of vocal cords presumed product of phonation. CHEST, MEDIASTINUM, AND HILAR REGION: No new areas of abnormal hypermetabolic uptake. ABDOMEN AND PELVIS: Normal excretion in the right kidney. There is right-sided ileostomy redemonstrat ed. Urine leak into the overlying anterior pelvis is present on current study similar to prior PET/CT . Corresponding to recent CT there is abnormal hypermetabolic mass or lymph node beginning at the aorti c bifurcation measuring at least 2.1 x 2.0 cm axial image 175, max SUV is 9.11. Craniocaudal length o f involvement roughly 4 to 5 cm. This extends just anterior along the course of the left common iliac vessels. No additional areas of abnormal hypermetabolic uptake. OSSEOUS STRUCTURES: No new areas of abnormal hypermetabolic uptake. OTHER CT: Mild cardiomegaly with coronary artery calcification and low lung volumes redemonstrated. E nlarged pulmonary arteries consistent with underlying pulmonary artery hypertension is noted. Left kidney surgically absent. Metallic artifact bilateral hip arthroplasty causes streak artifact li miting evaluation of pelvic structures. Multilevel spurring in the spine. Surgical change medially in the left breast axial image 87 is redemonstrated. IMPRESSION: Confirmation of active neoplastic recurrence at the iliac bifurcation and extending along anterior aspect of the left common iliac vessels as detailed above. No additional areas of active ne oplastic recurrence or metastatic disease identified.
== END | disposition home or self-care (01) ==
LOC: RADPETMAIN 14:25
PROVIDERS: ATTEND Internal Medicine Hematology & Oncology
DX: C49.3 Malignant neoplasm of connective and soft tissue of thorax (principal); C67.9 Malignant neoplasm of bladder, unspecified
CPT/HCPCS: 78815; A9552

== ENCOUNTER → 2021-12-09 | Outpatient (CLI) | payer MEDICARE, OTHER ==
--- NOTE | 2021-12-09 16:28 | US ---
EXAMINATION TYPE: US venous doppler duplex LE DATE OF EXAM: 12/09/2021 3:51 PM COMPARISON: NONE CLINICAL HISTORY: M79.662,M79.661 PAIN IN KIEL LIMBS, R22.42,R22.41 SWELLING. Bilateral leg pain SIDE PERFORMED: Bilateral TECHNIQUE: The lower extremity deep venous system is examined utilizing real time linear array sonog jazz with graded compression, doppler sonography and color-flow sonography. VESSELS IMAGED: Common Femoral Vein Deep Femoral Vein Greater Saphenous Vein * Femoral Vein Popliteal Vein Small Saphenous Vein * Proximal Calf Veins (* superficial vessels) There is normal flow, compressibility, vascular waveforms. Right Leg: Appears negative for DVT Left Leg: Appears negative for DVT IMPRESSION: No evident deep venous thrombosis within the lower extremities from the level the knee ce ntrally
== END | disposition home or self-care (01) ==
LOC: RADUSWWP 15:26
PROVIDERS: ATTEND Internal Medicine Hematology & Oncology
DX: R22.43 Localized swelling, mass and lump, lower limb, bilateral (principal); M79.604 Pain in right leg; M79.605 Pain in left leg
CPT/HCPCS: 93970

== ENCOUNTER → 2022-05-28 | Outpatient (CLI) | payer MEDICARE, OTHER ==
--- NOTE | 2022-05-29 11:56 | PE ---
EXAMINATION TYPE: PET CT fusion skull to thigh DATE OF EXAM: 05/28/2022 COMPARISON: Prior PET/CT November 12, 2021 and older studies. HISTORY: Left-sided breast cancer 2004. History of bladder cancer and left-sided nephrectomy 2009. On immunotherapy through May 14, 2022. TECHNIQUE: Following the intravenous administration of 13.67 mCi of F-18 FDG, whole body images are performed from the skull base to the midthigh. Images are reviewed on the computer in the coronal, a xial, and sagittal planes. Reconstructed rotating images are created on independent workstation and reviewed on the computer. A localization and attenuation correction CT is performed in conjunction with the PET scan. Blood glucose level equals 110. SCAN: Subsequent Scan FINDINGS: SKULL BASE AND NECK: No new areas of abnormal hypermetabolic uptake. CHEST, MEDIASTINUM, AND HILAR REGION: No new areas of abnormal hypermetabolic uptake. ABDOMEN AND PELVIS: Normal excretion in the right kidney is redemonstrated. There is right-sided ilea l conduit redemonstrated. Urine leak into the overlying anterior pelvis is present on current study s imilar to prior PET/CT. New nonspecific mild to moderate hypermetabolic uptake in the stomach. No visualized residual mass or lymph node just past the aortic bifurcation. Resolved abnormal hyperme tabolic uptake at this level on current study. No new suspicious areas of abnormal hypermetabolic uptake. OSSEOUS STRUCTURES: No new areas of abnormal hypermetabolic uptake. OTHER CT: Mild cardiomegaly with coronary artery calcification and low lung volumes redemonstrated. E nlarged pulmonary arteries consistent with underlying pulmonary artery hypertension is redemonstrated . New small bilateral pleural effusions. New small to tiny pericardial effusion. Correlate for CHF ex acerbation. Left kidney surgically absent. Metallic artifact from bilateral hip arthroplasty causes streak artifa ct limiting evaluation of pelvic structures. Multilevel spurring in the spine. Surgical change medial ly in the left breast axial image 92 is redemonstrated. IMPRESSION: Complete positive treatment response. No new areas of active neoplastic recurrence or met astatic disease identified.
== END | disposition home or self-care (01) ==
LOC: RADPETMAIN 11:58
PROVIDERS: ATTEND Internal Medicine Hematology & Oncology
DX: C67.9 Malignant neoplasm of bladder, unspecified (principal)
CPT/HCPCS: 78815; A9552

== ENCOUNTER 2022-08-21 08:13 | Inpatient (IN) | payer MEDICARE, OTHER ==
[2022-08-21] MEDS ORDERED: ONDANSETRON 4 MG/2 ML VIAL IVP STA (08:22)
[2022-08-21] MEDS ORDERED: FAMOTIDINE 20 MG/2 ML VIAL IV STA (08:23)
--- NOTE | 2022-08-21 08:25 | ED ---
Nausea/Vomiting/Diarrhea HPI - General Chief complaint: Nausea/Vomiting/Diarrhea Stated complaint: abd pain Time Seen by Provider: 08/21/22 08:22 Source: patient, EMS, RN notes reviewed Mode of arrival: EMS - History of Present Illness Initial comments: This is a 76-year-old female who presents to the emergency department for nausea, vomiting, and weakness. States that the symptoms began last night and have persisted. Believes that she has thrown up approximately 20 times. A dditionally, she reports that she has been constipated for the last 2-3 days despite trying multiple laxatives. Pain is described as being in the epigastric region and left lower quadrant. In 2009, the patient was diagnosed with urothelial cancer and subsequently required resection of the bladder, left kidney, and left ureter with ostomy creation. In October of last year, she was diagnosed with a retroperitoneal mass and has been following up with Dr. Malave for management. It is unclear what exactly this mass was, however she was on immunotherapy through the end of April of this year. PET scan obtained in May revealed complete positive treatment response. States that she is supposed to have a repeat PET scan later this month on 09/03. Denies any fevers, chills, sore throat, cough, dyspnea, chest pain, palpitations, or headaches. MD complaint: nausea, vomiting, abdominal pain Onset/Timin -: days(s) Associated Abdominal Pain: Yes Location: LLQ, epigastric Associated Symptoms: weakness - Related Data Home Medications Medication Instructions Recorded Confirmed Acetaminophen [Tylenol Extra 1,000 mg PO QID PRN 11/04/21 11/12/21 Strength] Atorvastatin [Lipitor] 20 mg PO TUSA 11/04/21 11/12/21 Doxylamine Succinate [Unisom] 25 mg PO HS PRN 11/04/21 11/12/21 Metoprolol Tartrate [Lopressor] 100 mg PO BID 11/04/21 11/12/21 Multivit-Min/FA/Lycopen/Lutein 1 tab PO DAILY 11/04/21 11/12/21 [Centrum Silver Tablet] Verapamil HCl [Verapamil ER] 120 mg PO DAILY 11/04/21 11/12/21 hydrALAZINE HCL [Apresoline] 10 mg PO BID 11/04/21 11/12/21 lisinopriL 40 mg PO DAILY 11/04/21 11/12/21 Cbd Gel 1 applic TOPICAL QID PRN 11/12/21 11/12/21 Cholecalciferol (Vitamin D3) 75 mcg PO DAILY 11/12/21 11/12/21 [Vitamin D3 (3000 Iu)] Piroxicam 20 mg PO DAILY 11/12/21 11/12/21 Pramipexole [Mirapex] 0.25 mg PO HS PRN 11/12/21 11/12/21 diphenhydrAMINE [Benadryl] 25 mg PO QID PRN 11/12/21 11/12/21 Previous Rx's Medication Instructions Recorded oxyCODONE HCL/ACETAMINOPHEN 1 tab PO Q4HR PRN 3 Days #18 tab 11/10/21 [Percocet 10-325 mg] Lactulose [Cephulac] 20 gm PO BID PRN #500 ml 11/14/21 hydrALAZINE HCL [Apresoline] 50 mg PO TID #90 tab 11/14/21 polyethylene glycoL 3350 [Miralax] 17 gm PO DAILY PRN #30 packet 11/14/21 Allergies Allergy/AdvReac Type Severity Reaction Status Date / Time codeine Allergy Rash/Hives, Verified 11/12/21 18:55 red all over colesevelam [From WelChol] Allergy Unknown Verified 11/12/21 18:55 duloxetine [From Cymbalta] Allergy Unknown Verified 11/12/21 18:55 latex Allergy positive Verified 11/12/21 18:55 allergy testing nickel Allergy positive Verified 11/12/21 18:55 allergy testing tramadol Allergy Unknown Verified 11/12/21 18:55 valsartan [From Diovan] Allergy Unknown Verified 11/12/21 18:55 zolpidem [From Ambien] Allergy Unknown Verified 11/12/21 18:55 Review of Systems ROS Statement: Those systems with pertinent positive or pertinent negative responses have been documented in the HPI. ROS Other: All systems not noted in ROS Statement are negative. Past Medical History Past Medical History: Cancer, GERD/Reflux, Hypertension Additional Past Medical History / Comment(s): 2007-breast cancer with surgery, radiation and Tamoxifen, left kidney and bladder cancer -surgery with chemo and hysterectomy., hx colon polyps., pt has urostomy., states constipation for 3 months, has used suppositories, and enemas, past blood in stool and dark black stools., states pain right abdomen by her stoma. , states abdomen is soft but feels swollen. History of Any Multi-Drug Resistant Organisms: None Reported Past Surgical History: Bladder Surgery, Breast Surgery, Joint Replacement Additional Past Surgical History / Comment(s): 2004 TOTAL RIGHT HIP, 2006 LEFT BREAST LUPECTOMY, 2009 LEFT KIDNEY REMOVED, BLADDER SURGERY WITH UROSTOMY, 2017 TOTAL LEFT HIP. Past Anesthesia/Blood Transfusion Reactions: No Reported Reaction Past Psychological History: No Psychological Hx Reported Smoking Status: Former smoker Past Alcohol Use History: None Reported Past Drug Use History: None Reported - Past Family History Mother Family Medical History: No Reported History General Exam General appearance: alert, in no apparent distress Head exam: Present: atraumatic, normocephalic Respiratory exam: Present: normal lung sounds bilaterally. Absent: respiratory distress, wheezes, rales, rhonchi, stridor Cardiovascular Exam: Present: regular rate, normal rhythm, normal heart sounds. Absent: systolic murmur, diastolic murmur, rubs, gallop, clicks GI/Abdominal exam: Present: soft, tenderness (epigastric and left lower quadrant), hypoactive bowel sounds. Absent: distended Neurological exam: Present: alert, oriented X3, CN II-XII intact Psychiatric exam: Present: normal affect, normal mood Skin exam: Present: warm, dry, intact, pallor. Absent: rash Course Vital Signs 08/21/22 08/21/22 08/21/22 08:18 09:03 09:49 Temperature 97.7 F Pulse Rate 82 73 84 Respiratory 18 11 L 14 Rate Blood Pressure 126/92 188/96 204/102 O2 Sat by Pulse 98 100 100 Oximetry 08/21/22 11:14 Temperature Pulse Rate 101 H Respiratory 16 Rate Blood Pressure 181/81 O2 Sat by Pulse 100 Oximetry Medical Decision Making - Medical Decision Making This is a 76-year-old female who presents to the emergency department for nausea, vomiting, and diarrhea. Lab work reveals leukocytosis and an elevated lactic acid of 3.1. Urinalysis consistent with urinary tract infection. Computed tomography scan of the abdomen and pelvis obtained revealing colitis and dilated small bowel loops, which may be related to obstruction or the colitis. Patient was given a liter of IV fluids, Zofran, Pepcid, and Dilaudid. She continued to have pain and was subsequently given Toradol and Ofirmev. Due to the possible obstruction, patient will be kept NPO, qualifying her for Ofirmev. She was started on ceftriaxone and Flagyl for the UTI and colitis. General surgery consulted for colitis and possible small bowel obstruction. Additionally, the patient was noted to be hypertensive, as she did not take her medication this morning. She was subsequently given 10 mg of IV hydralazine. She'll be admitted to medicine for urinary tract infection with colitis and possible small bowel obstruction. This case was discussed in detail with the attending ED physician. Presentation, findings, and treatment plan discussed in detail as well. - Lab Data Result diagrams: 08/21/22 08:55 08/21/22 08:55 Lab Results 08/21/22 08/21/22 08/21/22 Range/Units 08:55 08:55 08:55 WBC 12.3 H (3.8-10.6) k/uL RBC 4.59 (3.80-5.40) m/uL Hgb 13.7 (11.4-16.0) gm/dL Hct 42.2 (34.0-46.0) % MCV 92.1 (80.0-100.0) fL MCH 29.8 (25.0-35.0) pg MCHC 32.4 (31.0-37.0) g/dL RDW 14.1 (11.5-15.5) % Plt Count 155 (150-450) k/uL MPV 9.2 Neutrophils % 93 % Lymphocytes % 2 % Monocytes % 4 % Eosinophils % 0 % Basophils % 0 % Neutrophils # 11.5 H (1.3-7.7) k/uL Lymphocytes # 0.2 L (1.0-4.8) k/uL Monocytes # 0.5 (0-1.0) k/uL Eosinophils # 0.0 (0-0.7) k/uL Basophils # 0.1 (0-0.2) k/uL PT 10.7 (9.0-12.0) sec INR 1.0 (<1.2) APTT 20.3 L (22.0-30.0) sec Sodium 138 (137-145) mmol/L Potassium 4.2 (3.5-5.1) mmol/L Chloride 104 (98-107) mmol/L Carbon Dioxide 23 (22-30) mmol/L Anion Gap 11 mmol/L BUN 13 (7-17) mg/dL Creatinine 0.78 (0.52-1.04) mg/dL Est GFR (CKD-EPI)AfAm 86 (>60 ml/min/1.73 sqM) Est GFR (CKD-EPI)NonAf 74 (>60 ml/min/1.73 sqM) Glucose 156 H (74-99) mg/dL Plasma Lactic Acid Naeem (0.7-2.0) mmol/L Calcium 8.5 (8.4-10.2) mg/dL Magnesium 1.7 (1.6-2.3) mg/dL Total Bilirubin 0.7 (0.2-1.3) mg/dL AST 19 (14-36) U/L ALT 10 (4-34) U/L Alkaline Phosphatase 61 (38-126) U/L Troponin I (0.000-0.034) ng/mL Total Protein 4.7 L (6.3-8.2) g/dL Albumin 2.8 L (3.5-5.0) g/dL Amylase <30 L (30-110) U/L Lipase 17 L (23-300) U/L Urine Color Urine Appearance (Clear) Urine pH (5.0-8.0) Ur Specific [place] (1.001-1.035) Urine Protein (Negative) Urine Glucose (UA) (Negative) Urine Ketones (Negative) Urine Blood (Negative) Urine Nitrite (Negative) Urine Bilirubin (Negative) Urine Urobilinogen (<2.0) mg/dL Ur Leukocyte Esterase (Negative) Urine RBC (0-5) /hpf Urine WBC (0-5) /hpf Urine Bacteria (None) /hpf Hyaline Casts (0-2) /lpf Urine Mucus (None) /hpf Urine Yeast (Budding) (None) /hpf Coronavirus (PCR) (Not Detectd) Influenza Type A RNA (Not Detectd) Influenza Type B (PCR) (Not Detectd) 08/21/22 08/21/22 08/21/22 Range/Units 08:55 08:55 09:03 WBC (3.8-10.6) k/uL RBC (3.80-5.40) m/uL Hgb (11.4-16.0) gm/dL Hct (34.0-46.0) % MCV (80.0-100.0) fL MCH (25.0-35.0) pg MCHC (31.0-37.0) g/dL RDW (11.5-15.5) % Plt Count (150-450) k/uL MPV Neutrophils % % Lymphocytes % % Monocytes % % Eosinophils % % Basophils % % Neutrophils # (1.3-7.7) k/uL Lymphocytes # (1.0-4.8) k/uL Monocytes # (0-1.0) k/uL Eosinophils # (0-0.7) k/uL Basophils # (0-0.2) k/uL PT (9.0-12.0) sec INR (<1.2) APTT (22.0-30.0) sec Sodium (137-145) mmol/L Potassium (3.5-5.1) mmol/L Chloride (98-107) mmol/L Carbon Dioxide (22-30) mmol/L Anion Gap mmol/L BUN (7-17) mg/dL Creatinine (0.52-1.04) mg/dL Est GFR (CKD-EPI)AfAm (>60 ml/min/1.73 sqM) Est GFR (CKD-EPI)NonAf (>60 ml/min/1.73 sqM) Glucose (74-99) mg/dL Plasma Lactic Acid Naeem 3.1 H* (0.7-2.0) mmol/L Calcium (8.4-10.2) mg/dL Magnesium (1.6-2.3) mg/dL Total Bilirubin (0.2-1.3) mg/dL AST (14-36) U/L ALT (4-34) U/L Alkaline Phosphatase (38-126) U/L Troponin I <0.012 (0.000-0.034) ng/mL Total Protein (6.3-8.2) g/dL Albumin (3.5-5.0) g/dL Amylase (30-110) U/L Lipase (23-300) U/L Urine Color Yellow Urine Appearance Cloudy H (Clear) Urine pH 6.0 (5.0-8.0) Ur Specific [place] 1.018 (1.001-1.035) Urine Protein 1+ H (Negative) Urine Glucose (UA) Negative (Negative) Urine Ketones 3+ H (Negative) Urine Blood Small H (Negative) Urine Nitrite Positive H (Negative) Urine Bilirubin Negative (Negative) Urine Urobilinogen <2.0 (<2.0) mg/dL Ur Leukocyte Esterase Large H (Negative) Urine RBC 14 H (0-5) /hpf Urine WBC 35 H (0-5) /hpf Urine Bacteria Few H (None) /hpf Hyaline Casts 1 (0-2) /lpf Urine Mucus Rare H (None) /hpf Urine Yeast (Budding) Rare H (None) /hpf Coronavirus (PCR) (Not Detectd) Influenza Type A RNA (Not Detectd) Influenza Type B (PCR) (Not Detectd) 08/21/22 08/21/22 Range/Units 09:03 09:03 WBC (3.8-10.6) k/uL RBC (3.80-5.40) m/uL Hgb (11.4-16.0) gm/dL Hct (34.0-46.0) % MCV (80.0-100.0) fL MCH (25.0-35.0) pg MCHC (31.0-37.0) g/dL RDW (11.5-15.5) % Plt Count (150-450) k/uL MPV Neutrophils % % Lymphocytes % % Monocytes % % Eosinophils % % Basophils % % Neutrophils # (1.3-7.7) k/uL Lymphocytes # (1.0-4.8) k/uL Monocytes # (0-1.0) k/uL Eosinophils # (0-0.7) k/uL Basophils # (0-0.2) k/uL PT (9.0-12.0) sec INR (<1.2) APTT (22.0-30.0) sec Sodium (137-145) mmol/L Potassium (3.5-5.1) mmol/L Chloride (98-107) mmol/L Carbon Dioxide (22-30) mmol/L Anion Gap mmol/L BUN (7-17) mg/dL Creatinine (0.52-1.04) mg/dL Est GFR (CKD-EPI)AfAm (>60 ml/min/1.73 sqM) Est GFR (CKD-EPI)NonAf (>60 ml/min/1.73 sqM) Glucose (74-99) mg/dL Plasma Lactic Acid Naeem (0.7-2.0) mmol/L Calcium (8.4-10.2) mg/dL Magnesium (1.6-2.3) mg/dL Total Bilirubin (0.2-1.3) mg/dL AST (14-36) U/L ALT (4-34) U/L Alkaline Phosphatase (38-126) U/L Troponin I (0.000-0.034) ng/mL Total Protein (6.3-8.2) g/dL Albumin (3.5-5.0) g/dL Amylase (30-110) U/L Lipase (23-300) U/L Urine Color Urine Appearance (Clear) Urine pH (5.0-8.0) Ur Specific [place] (1.001-1.035) Urine Protein (Negative) Urine Glucose (UA) (Negative) Urine Ketones (Negative) Urine Blood (Negative) Urine Nitrite (Negative) Urine Bilirubin (Negative) Urine Urobilinogen (<2.0) mg/dL Ur Leukocyte Esterase (Negative) Urine RBC (0-5) /hpf Urine WBC (0-5) /hpf Urine Bacteria (None) /hpf Hyaline Casts (0-2) /lpf Urine Mucus (None) /hpf Urine Yeast (Budding) (None) /hpf Coronavirus (PCR) Not Detected (Not Detectd) Influenza Type A RNA Not Detected (Not Detectd) Influenza Type B (PCR) Not Detected (Not Detectd) - EKG Data EKG Comments: Sinus rhythm with sinus arrhythmia. Normal axis. Ventricular rate 75 bpm, NC interval 145 ms, QRS duration 94 ms, QTC 434 ms. - Radiology Data Radiology results: report reviewed, image reviewed Disposition Clinical Impression: UTI (urinary tract infection), Colitis, Small bowel obstruction Disposition: ADMITTED IP TO THIS HOSP
[2022-08-21] MEDS ORDERED: HYDROmorphone 0.5 MG/0.5 ML SYRINGE IVP STA (08:38)
[2022-08-21 09:22] LABS: Prothrombin Time 10.7 sec (9.0-12.0)
[2022-08-21 09:23] LABS: ALT 10 U/L (4-34); AST 19 U/L (14-36); African American GFR (CKD) 86 (>60 ml/min/1.73 sqM); Albumin 2.8 g/dL (3.5-5.0); Alkaline Phosphatase 61 U/L (38-126); Amylase <30 U/L (30-110); Anion Gap 11 mmol/L; Blood Urea Nitrogen 13 mg/dL (7-17); Calcium 8.5 mg/dL (8.4-10.2); Carbon Dioxide 23 mmol/L (22-30); Chloride 104 mmol/L (98-107); Glucose 156 mg/dL (74-99); Lipase 17 U/L (23-300); Magnesium 1.7 mg/dL (1.6-2.3); Non-African American GFR(CKD) 74 (>60 ml/min/1.73 sqM); Potassium 4.2 mmol/L (3.5-5.1); Sodium 138 mmol/L (137-145); Total Bilirubin 0.7 mg/dL (0.2-1.3); Total Protein 4.7 g/dL (6.3-8.2)
[2022-08-21 09:26] LABS: Appearance,Urine Cloudy (Clear); Bacteria,Urine Few /hpf; Bilirubin,Urine Negative (Negative); Blood,Urine Small (Negative); Budding Yeast,Urine Rare /hpf; Color,Urine Yellow; Glucose,Urine (UA) Negative (Negative); Hyaline Casts,Urine 1 /lpf (0-2); Ketones,Urine 3+ (Negative); Leukocyte Esterase,Urine Large (Negative); Mucus,Urine Rare /hpf; Nitrite,Urine Positive (Negative); Protein,Urine 1+ (Negative); RBC,Urine 14 /hpf (0-5); Specific Gravity,Urine 1.018 (1.001-1.035); Urobilinogen,Urine <2.0 mg/dL (<2.0); WBC,Urine 35 /hpf (0-5)
[2022-08-21 09:30] LABS: Basophils # (A) 0.1 k/uL (0-0.2); Basophils % (A) 0 %; Eosinophils % (A) 0 %; HCT 42.2 % (34.0-46.0); HGB 13.7 gm/dL (11.4-16.0); Lymphocytes # (A) 0.2 k/uL (1.0-4.8); Lymphocytes % (A) 2 %; MCH 29.8 pg (25.0-35.0); MCHC 32.4 g/dL (31.0-37.0); MCV 92.1 fL (80.0-100.0); Mean Platelet Volume 9.2; Monocytes # (A) 0.5 k/uL (0-1.0); Monocytes % (A) 4 %; Neutrophils # (A) 11.5 k/uL (1.3-7.7); Neutrophils % (A) 93 %; Platelet Count 155 k/uL (150-450); RBC 4.59 m/uL (3.80-5.40); RDW 14.1 % (11.5-15.5); WBC 12.3 k/uL (3.8-10.6)
[2022-08-21 09:36] LABS: Partial Thromboplastin Time 20.3 sec (22.0-30.0)
[2022-08-21] MEDS ORDERED: hydrALAZINE HCL 20 MG/ML 1 ML VIAL IVP STA (09:52)
[2022-08-21] MEDS ORDERED: cefTRIAXone IN SWFI 1,000 MG/10 ML SYRINGE IVP STA (09:53)
--- NOTE | 2022-08-21 10:07 | CT ---
EXAMINATION TYPE: CT abdomen pelvis wo con CT DLP: 616.6 mGycm, Automated exposure control for dose reduction was used. DATE OF EXAM: 08/21/2022 9:48 AM COMPARISON: CT abdomen pelvis most recent from PET/CT 2021 CLINICAL INDICATION:Female, 76 years old with history of epigastric and LLQ pain; Epigastric and LLQ pain for months TECHNIQUE: Axial CT of the abdomen and pelvis. Sagittal and coronal reformats were created on a [employer] workstation. Contrast used: None Oral contrast used: without Oral Contrast FINDINGS: LOWER CHEST: Small left pleural effusion. Coronary artery atherosclerosis ABDOMEN LIVER: Unremarkable GALLBLADDER AND BILE DUCTS: Unremarkable. PANCREAS: Unremarkable. SPLEEN: Unremarkable. ADRENAL GLANDS: Unremarkable. KIDNEYS AND URETERS: No evidence of hydronephrosis or renal calculus. PELVIS BLADDER: The bladder is surgically absent with ileal conduit. REPRODUCTIVE: Poorly visualized due to hip prostheses. ABDOMEN & PELVIS STOMACH AND BOWEL: There is circumferential wall thickening of the colon most pronounced extending fr om the cecum to the sigmoid colon. The appendix is normal. Postsurgical changes of the bowel are also present. There is stacking dilated loops of small bowel measuring up to 3.1 cm. Small hiatal hernia is present. PERITONEUM: No evidence of pneumoperitoneum. Small amount of ascites along the liver. VASCULATURE: No evidence of aortic aneurysm. Atherosclerosis of the arterial vasculature. MUSCULOSKELETAL: No acute osseous abnormalities, bilateral hip arthroplasties which limits evaluation the pelvis. LYMPH NODES: No gross evidence for lymphadenopathy. SOFT TISSUE/ABDOMINAL WALL: Unremarkable IMPRESSION: 1. Colitis extending from the cecum to the sigmoid colon. 2. Small bowel dilation up to 3.1 cm with some small bowel feces considers dedicated small bowel fol low-through throughout underlying component of obstruction. Findings could be secondary to #1. 3. Postsurgical changes bladder with ileal conduit changes. 4. Small left pleural effusion. 5. Small ascites.
[2022-08-21] MEDS ORDERED: KETOROLAC 15 MG/ML 1 ML VIAL IVP STA (10:21)
[2022-08-21] MEDS ORDERED: ACETAMINOPHEN IV (For NPO) 1,000 MG in EMPTY BAG 1 BAG IVPB STA (10:34)
[2022-08-21] MEDS ORDERED: NALOXONE 0.4 MG/ML 1 ML VIAL IV PRN (10:43)
[2022-08-21] MEDS ORDERED: KETOROLAC 15 MG/ML 1 ML VIAL IVP PRN (10:43)
[2022-08-21] MEDS: SODIUM CHLORIDE 0.9% 1,000 ML IV SCH (11:21)
[2022-08-21] MEDS: metroNIDAZOLE-NS PMX 500 MG in SALINE 1 100ML.BAG IVPB SCH ×3 (11:21→22:11)
[2022-08-21] MEDS: PANTOPRAZOLE 40 MG/10 ML VIAL IV SCH (11:21)
--- NOTE | 2022-08-21 12:49 | P.GSCN ---
History of Present Illness Consult date: 08/21/22 Reason for Consult: Partial small bowel obstruction, colitis History of present illness: 76 years old female status post left nephrectomy and cystectomy and resection of the left ureter with computer of ileoconduit. Presenting to the ER with 3 days history of constipation a bowel movement and intractable nausea and vomiting some low-grade fever on admission she was found to have positive leukocytosis urinary tract infection and computed tomography scan finding showing colitis with dilated old loops of small bowel transition point questionable partial small bowel obstruction she was severely dehydrated with elevated lactic acidosis. Admitted to the hospital and kept nothing by mouth we'll started on IV antibiotics and hydration general surgery consult obtained for management of the partial small bowel obstruction and colitis Review of Systems - Constitutional Reports as per HPI, Reports anorexia, Reports chills, Reports fatigue, Reports lethargy, Reports weakness - EENT Eyes: denies blurred vision, denies irritation, denies itching - Cardiovascular Reports high blood pressure, Denies chest pain, Denies claudication, Denies irregular heart beat - Respiratory Denies congestion, Denies cough, Denies dyspnea - Gastrointestinal Reports abdominal pain, Reports belching, Reports bloating, Reports constipation, Reports loss of appetite, Reports nausea, Reports vomiting, Denies BRBPR, Denies coffee ground emesis, Denies hematemesis, Denies hematochezia, Den ies jaundice Past Medical History Past Medical History: Cancer, GERD/Reflux, Hypertension Additional Past Medical History / Comment(s): 2007-breast cancer with surgery, radiation and Tamoxifen, left kidney and bladder cancer -surgery with chemo and hysterectomy., hx colon polyps., pt has urostomy., states constipation for 3 months, has used suppositories, and enemas, past blood in stool and dark black stools., states pain right abdomen by her stoma. , states abdomen is soft but feels swollen. History of Any Multi-Drug Resistant Organisms: None Reported Past Surgical History: Bladder Surgery, Breast Surgery, Joint Replacement Additional Past Surgical History / Comment(s): 2004 TOTAL RIGHT HIP, 2006 LEFT BREAST LUPECTOMY, 2009 LEFT KIDNEY REMOVED, BLADDER SURGERY WITH UROSTOMY, 2017 TOTAL LEFT HIP. Past Anesthesia/Blood Transfusion Reactions: No Reported Reaction Past Psychological History: No Psychological Hx Reported Smoking Status: Former smoker Past Alcohol Use History: None Reported Past Drug Use History: None Reported - Past Family History Mother Family Medical History: No Reported History Medications and Allergies Home Medications Medication Instructions Recorded Confirmed Type Acetaminophen [Tylenol Extra 1,000 mg PO QID PRN 11/04/21 11/12/21 History Strength] Atorvastatin [Lipitor] 20 mg PO TUSA 11/04/21 11/12/21 History Doxylamine Succinate [Unisom] 25 mg PO HS PRN 11/04/21 11/12/21 History Metoprolol Tartrate [Lopressor] 100 mg PO BID 11/04/21 11/12/21 History Multivit-Min/FA/Lycopen/Lutein 1 tab PO DAILY 11/04/21 11/12/21 History [Centrum Silver Tablet] Verapamil HCl [Verapamil ER] 120 mg PO DAILY 11/04/21 11/12/21 History hydrALAZINE HCL [Apresoline] 10 mg PO BID 11/04/21 11/12/21 History lisinopriL 40 mg PO DAILY 11/04/21 11/12/21 History oxyCODONE HCL/ACETAMINOPHEN 1 tab PO Q4HR PRN 3 Days #18 tab 11/10/21 11/12/21 Rx [Percocet 10-325 mg] Cbd Gel 1 applic TOPICAL QID PRN 11/12/21 11/12/21 History Cholecalciferol (Vitamin D3) 75 mcg PO DAILY 11/12/21 11/12/21 History [Vitamin D3 (3000 Iu)] Piroxicam 20 mg PO DAILY 11/12/21 11/12/21 History Pramipexole [Mirapex] 0.25 mg PO HS PRN 11/12/21 11/12/21 History diphenhydrAMINE [Benadryl] 25 mg PO QID PRN 11/12/21 11/12/21 History Lactulose [Cephulac] 20 gm PO BID PRN #500 ml 11/14/21 Rx hydrALAZINE HCL [Apresoline] 50 mg PO TID #90 tab 11/14/21 Rx polyethylene glycoL 3350 [Miralax] 17 gm PO DAILY PRN #30 packet 11/14/21 Rx Allergies Allergy/AdvReac Type Severity Reaction Status Date / Time codeine Allergy Rash/Hives, Verified 11/12/21 18:55 red all over colesevelam [From WelChol] Allergy Unknown Verified 11/12/21 18:55 duloxetine [From Cymbalta] Allergy Unknown Verified 11/12/21 18:55 latex Allergy positive Verified 11/12/21 18:55 allergy testing nickel Allergy positive Verified 11/12/21 18:55 allergy testing tramadol Allergy Unknown Verified 11/12/21 18:55 valsartan [From Diovan] Allergy Unknown Verified 11/12/21 18:55 zolpidem [From Ambien] Allergy Unknown Verified 11/12/21 18:55 Surgical - Exam Vital Signs Temp Pulse Resp BP Pulse Ox 97.7 F 82 18 126/92 98 08/21/22 08:18 08/21/22 08:18 08/21/22 08:18 08/21/22 08:18 08/21/22 08:18 - General moderate distress, no pain, cachectic - Eyes PERRL, normal ocular movement - Neck no masses, no bruits, trachea midline - Respiratory bilateral: rales - Cardiovascular Rhythm: regular Heart Sounds: normal: S1, S2 - Abdomen Patient has right lower quadrant ileal conduit and pliable unproductive urine clear Abdomen: soft, tender, bowel sounds, surgical scars, no guarding, no rigid, no rebound, no distended Hernia: no none Results - Labs 08/21/22 08:55 08/21/22 08:55 Abnormal Lab Results - Last 24 Hours (Table) 08/21/22 08/21/22 08/21/22 Range/Units 08:55 08:55 08:55 WBC 12.3 H (3.8-10.6) k/uL Neutrophils # 11.5 H (1.3-7.7) k/uL Lymphocytes # 0.2 L (1.0-4.8) k/uL APTT 20.3 L (22.0-30.0) sec Glucose 156 H (74-99) mg/dL Plasma Lactic Acid Naeem (0.7-2.0) mmol/L Total Protein 4.7 L (6.3-8.2) g/dL Albumin 2.8 L (3.5-5.0) g/dL Amylase <30 L (30-110) U/L Lipase 17 L (23-300) U/L Urine Appearance (Clear) Urine Protein (Negative) Urine Ketones (Negative) Urine Blood (Negative) Urine Nitrite (Negative) Ur Leukocyte Esterase (Negative) Urine RBC (0-5) /hpf Urine WBC (0-5) /hpf Urine Bacteria (None) /hpf Urine Mucus (None) /hpf Urine Yeast (Budding) (None) /hpf 08/21/22 08/21/22 Range/Units 08:55 09:03 WBC (3.8-10.6) k/uL Neutrophils # (1.3-7.7) k/uL Lymphocytes # (1.0-4.8) k/uL APTT (22.0-30.0) sec Glucose (74-99) mg/dL Plasma Lactic Acid Naeem 3.1 H* (0.7-2.0) mmol/L Total Protein (6.3-8.2) g/dL Albumin (3.5-5.0) g/dL Amylase (30-110) U/L Lipase (23-300) U/L Urine Appearance Cloudy H (Clear) Urine Protein 1+ H (Negative) Urine Ketones 3+ H (Negative) Urine Blood Small H (Negative) Urine Nitrite Positive H (Negative) Ur Leukocyte Esterase Large H (Negative) Urine RBC 14 H (0-5) /hpf Urine WBC 35 H (0-5) /hpf Urine Bacteria Few H (None) /hpf Urine Mucus Rare H (None) /hpf Urine Yeast (Budding) Rare H (None) /hpf Diabetes panel 08/21/22 Range/Units 08:55 Sodium 138 (137-145) mmol/L Potassium 4.2 (3.5-5.1) mmol/L Chloride 104 (98-107) mmol/L Carbon Dioxide 23 (22-30) mmol/L BUN 13 (7-17) mg/dL Creatinine 0.78 (0.52-1.04) mg/dL Glucose 156 H (74-99) mg/dL Calcium 8.5 (8.4-10.2) mg/dL AST 19 (14-36) U/L ALT 10 (4-34) U/L Alkaline Phosphatase 61 (38-126) U/L Total Protein 4.7 L (6.3-8.2) g/dL Albumin 2.8 L (3.5-5.0) g/dL Calcium panel 08/21/22 Range/Units 08:55 Calcium 8.5 (8.4-10.2) mg/dL Albumin 2.8 L (3.5-5.0) g/dL Pituitary panel 08/21/22 Range/Units 08:55 Sodium 138 (137-145) mmol/L Potassium 4.2 (3.5-5.1) mmol/L Chloride 104 (98-107) mmol/L Carbon Dioxide 23 (22-30) mmol/L BUN 13 (7-17) mg/dL Creatinine 0.78 (0.52-1.04) mg/dL Glucose 156 H (74-99) mg/dL Calcium 8.5 (8.4-10.2) mg/dL Adrenal panel 08/21/22 Range/Units 08:55 Sodium 138 (137-145) mmol/L Potassium 4.2 (3.5-5.1) mmol/L Chloride 104 (98-107) mmol/L Carbon Dioxide 23 (22-30) mmol/L BUN 13 (7-17) mg/dL Creatinine 0.78 (0.52-1.04) mg/dL Glucose 156 H (74-99) mg/dL Calcium 8.5 (8.4-10.2) mg/dL Total Bilirubin 0.7 (0.2-1.3) mg/dL AST 19 (14-36) U/L ALT 10 (4-34) U/L Alkaline Phosphatase 61 (38-126) U/L Total Protein 4.7 L (6.3-8.2) g/dL Albumin 2.8 L (3.5-5.0) g/dL Assessment and Plan (1) Colitis Narrative/Plan: Patient is being admitted agree with IV antibiotics, bowel rest/nothing by mouth, serial abdominal exams, recommend GI consult Recommend stool cultures, stool for ova and parasite, checked for C. diff, stool white blood count Current Visit: Yes Status: Acute Code(s): K52.9 - NONINFECTIVE GASTROENTERITIS AND COLITIS, UNSPECIFIED SNOMED Code(s): 49803764 (2) Small bowel obstruction Narrative/Plan: Place NG tube, keep the patient nothing by mouth, I believe this is a partial s mall bowel obstruction will perform serial abdominal exam and with management of colitis this is expected to resolve if not will evaluate the patient in a daily basis and if there is no resolution of the OBSTRUCTION PATIENT MIGHT NEED SURGICAL EXPLORATION FOR LYSIS OF ADHESION. I have discussed this with the patient in detail as well as with her . They understand the plan and agree with it. I have answered all the questions and concerns to her satisfaction. Current Visit: Yes Status: Acute Code(s): K56.609 - UNSP INTESTNL OBST, UNSP TO PARTIAL VERSUS COMPLETE OBST SNOMED Code(s): 797542161 (3) UTI (urinary tract infection) Current Visit: Yes Status: Acute Code(s): N39.0 - URINARY TRACT INFECTION, SITE NOT SPECIFIED SNOMED Code(s): 93936813 (4) Abdominal pain Current Visit: No Status: Acute Code(s): R10.9 - UNSPECIFIED ABDOMINAL PAIN SNOMED Code(s): 96917310 (5) Retroperitoneal mass Current Visit: No Status: Acute Code(s): R19.00 - INTRA-ABD AND PELVIC SWELLING, MASS AND LUMP, UNSP SITE SNOMED Code(s): 51532690 Time with Patient: Greater than 30
[2022-08-21] MEDS ORDERED: HYDROmorphone 0.5 MG/0.5 ML SYRINGE IVP PRN (18:34)
[2022-08-21] MEDS ORDERED: ATORVASTATIN 20 MG TAB PO SCH (21:00)
[2022-08-21] MEDS: METOPROLOL TARTRATE 50 MG TAB PO SCH (22:07)
[2022-08-21] MEDS: MORPHINE SULFATE IR 15 MG TABLET PO SCH (22:09)
[2022-08-21] MEDS: hydrALAZINE HCL 10 MG TAB PO SCH (22:16)
--- NOTE | 2022-08-21 22:18 | P.HPIM ---
History of Present Illness H&P Date: 08/21/22 Chief Complaint: Nausea vomiting and generalized weakness Patient is a 76-year-old female with a known history of hypertension, history of breast cancer status postsurgery, radiation, history of left kidney and bladder cancer status post hysterectomy and chronic urostomy bag and osteoarthritis and previous history of smoking presents to ER with complaints of nausea vomiting and generalized weakness. Patient states that her symptoms started last night and has been throwing up since this morning. No complaints of fever or chills. Patient does have pain in the left lower quadrant. Patient was also constipated 2 to 3 days and has been taking laxatives at home. 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 Ramirez of for management. She was on immunotherapy through the end of April of this year. PET scan obtained in May revealed complete positive treatment response. Patient states that she is supposed to repeat the PET scan on 09/03/2022. CT of the abdomen pelvis showed colitis extending from the cecum to the sigmoid colon. Small bowel dilation up to 3.1 cm with some small bowel features cultures dedicated small bowel follow-through throughout underlying component of obstruction. Findings could be secondary to #1. Postsurgical bladder with ileal conduit changes. Small left pleural effusion and small ascites. EKG showed sinus rhythm with sinus arrhythmia. Laboratory test showed WBC 12.3 hemoglobin 13.7 platelets 135 Sodium 138 potassium 4.2 chloride 104 bicarb is 23 BUN 39 creatinine 0.78 and lactic acid 3.1 Total protein 2.7 amylase less than 30 lipase 17 and urinalysis showed cloudy with 1+ protein and 3+ ketones and small blood and nitrite positive with large leukocyte esterase with elevated RBCs and WBCs. Coronavirus PCR and influenza a and B not detected. Review of Systems Constitutional: Patient denies any fever or chills . Patient does have general ized weakness. Abdomen: Complaints of nausea vomiting and left lower quadrant abdominal pain and no diarrhea. Cardiovascular: Patient denies any chest pain or short of breath no palpitations. Respiratory: patient denied any cough . no sputum production. No shortness of breath Neurologic: Patient denied any numbness or tingling headache. Musculoskeletal: Patient denies any complaints of joint swelling or deformity. Skin: Negative Psychiatric: Negative Endocrine: No heat or cold intolerance. No recent weight gain. Genitourinary: No dysuria or hematuria. All other 14 point ROS negative except the above Past Medical History Past Medical History: Cancer, GERD/Reflux, Hypertension Additional Past Medical History / Comment(s): 2007-breast cancer with surgery, radiation and Tamoxifen, left kidney and bladder cancer -surgery with chemo and hysterectomy., hx colon polyps., pt has urostomy., states constipation for 3 months, has used suppositories, and enemas, past blood in stool and dark black stools., states pain right abdomen by her stoma. , states abdomen is soft but feels swollen. History of Any Multi-Drug Resistant Organisms: None Reported Past Surgical History: Bladder Surgery, Breast Surgery, Joint Replacement Additional Past Surgical History / Comment(s): 2004 TOTAL RIGHT HIP, 2006 LEFT BREAST LUPECTOMY, 2009 LEFT KIDNEY REMOVED, BLADDER SURGERY WITH UROSTOMY, 2017 TOTAL LEFT HIP. Past Anesthesia/Blood Transfusion Reactions: No Reported Reaction Smoking Status: Former smoker - Past Family History Mother Family Medical History: No Reported History Medications and Allergies Home Medications Medication Instructions Recorded Confirmed Type Atorvastatin [Lipitor] 20 mg PO TUSA 11/04/21 08/21/22 History Metoprolol Tartrate [Lopressor] 100 mg PO BID 11/04/21 08/21/22 History Verapamil HCl [Verapamil ER] 120 mg PO DAILY 11/04/21 08/21/22 History hydrALAZINE HCL [Apresoline] 10 mg PO BID 11/04/21 08/21/22 History lisinopriL 40 mg PO DAILY 11/04/21 08/21/22 History oxyCODONE HCL/ACETAMINOPHEN 1 tab PO Q4HR PRN 3 Days #18 tab 11/10/21 08/21/22 Rx [Percocet 10-325 mg] Cholecalciferol (Vitamin D3) 75 mcg PO DAILY 11/12/21 08/21/22 History [Vitamin D3 (3000 Iu)] Piroxicam 20 mg PO DAILY 11/12/21 08/21/22 History Morphine Sulfate Ir [MSIR] 15 mg PO BID 08/21/22 08/21/22 History Allergies Allergy/AdvReac Type Severity Reaction Status Date / Time codeine Allergy Rash/Hives, Verified 08/21/22 13:25 red all over colesevelam [From WelChol] Allergy Unknown Verified 08/21/22 13:25 duloxetine [From Cymbalta] Allergy Unknown Verified 08/21/22 13:25 latex Allergy positive Verified 08/21/22 13:25 allergy testing nickel Allergy positive Verified 08/21/22 13:25 allergy testing tramadol Allergy Unknown Verified 08/21/22 13:25 valsartan [From Diovan] Allergy Unknown Verified 08/21/22 13:25 zolpidem [From Ambien] Allergy Unknown Verified 08/21/22 13:25 Physical Exam Vitals: Vital Signs Temp Pulse Pulse Resp BP BP Pulse Ox 08/21/22 19:27 98.3 F 94 15 166/80 95 08/21/22 17:30 138/68 08/21/22 15:58 99.6 F 99 16 184/81 96 08/21/22 15:04 106 H 18 110/99 96 08/21/22 11:14 101 H 16 181/81 100 08/21/22 09:49 84 14 204/102 100 08/21/22 09:03 73 11 L 188/96 100 08/21/22 08:18 97.7 F 82 18 126/92 98 Intake and Output 08/21/22 08/21/22 08/21/22 06:59 14:59 22:59 Intake Total 250 Output Total 500 Balance -250 Intake: Intake, IV Titration 250 Amount Sodium Chloride 0.9% 1, 150 000 ml @ 75 mls/hr IV . [id number] JACOBY Rx#:[id number] metroNIDAZOLE-NS PMX 500 100 mg In Saline 1 100ml.bag @ 100 mls/hr IVPB Q6H JACOBY Rx#:[id number] Output: Urine 500 Other: Weight 78.925 kg 78.925 kg PHYSICAL EXAMINATION: Patient is lying in the bed comfortably, no acute distress, awake alert and oriented.. HEENT: Normocephalic. Neck is supple. Pupils reactive. Nostrils clear. Oral cavity is moist. Neck reveals no JVD, carotid bruits, or thyromegaly. CHEST EXAMINATION: Trachea is central. Symmetrical expansion. Lung layne clear to auscultation and percussion. CARDIAC: Normal S1, S2 with no gallops. No murmurs ABDOMEN: Soft. Bowel sounds sluggish. Urostomy bag in place. Mild tenderness. No guarding or rigidity. No organomegaly. No abdominal bruits. Extremities: reveal no edema. No clubbing or cyanosis Neurologically awake, alert, oriented x3 with well-coordinated movements. No gross focal deficits noted Skin: No rash or skin lesions. Psychiatric: Coperative. Nonsuicidal, Musculoskeletal: No joint swelling or deformity. Normal range of motion. Results CBC & Chem 7: 08/21/22 08:55 08/21/22 08:55 Labs: Abnormal Lab Results - Last 24 Hours (Table) 08/21/22 08/21/22 08/21/22 Range/Units 08:55 08:55 08:55 WBC 12.3 H (3.8-10.6) k/uL Neutrophils # 11.5 H (1.3-7.7) k/uL Lymphocytes # 0.2 L (1.0-4.8) k/uL APTT 20.3 L (22.0-30.0) sec Glucose 156 H (74-99) mg/dL Plasma Lactic Acid Naeem (0.7-2.0) mmol/L Total Protein 4.7 L (6.3-8.2) g/dL Albumin 2.8 L (3.5-5.0) g/dL Amylase <30 L (30-110) U/L Lipase 17 L (23-300) U/L Urine Appearance (Clear) Urine Protein (Negative) Urine Ketones (Negative) Urine Blood (Negative) Urine Nitrite (Negative) Ur Leukocyte Esterase (Negative) Urine RBC (0-5) /hpf Urine WBC (0-5) /hpf Urine Bacteria (None) /hpf Urine Mucus (None) /hpf Urine Yeast (Budding) (None) /hpf 08/21/22 08/21/22 08/21/22 Range/Units 08:55 09:03 12:02 WBC (3.8-10.6) k/uL Neutrophils # (1.3-7.7) k/uL Lymphocytes # (1.0-4.8) k/uL APTT (22.0-30.0) sec Glucose (74-99) mg/dL Plasma Lactic Acid Naeem 3.1 H* 2.4 H* (0.7-2.0) mmol/L Total Protein (6.3-8.2) g/dL Albumin (3.5-5.0) g/dL Amylase (30-110) U/L Lipase (23-300) U/L Urine Appearance Cloudy H (Clear) Urine Protein 1+ H (Negative) Urine Ketones 3+ H (Negative) Urine Blood Small H (Negative) Urine Nitrite Positive H (Negative) Ur Leukocyte Esterase Large H (Negative) Urine RBC 14 H (0-5) /hpf Urine WBC 35 H (0-5) /hpf Urine Bacteria Few H (None) /hpf Urine Mucus Rare H (None) /hpf Urine Yeast (Budding) Rare H (None) /hpf Microbiology - Last 24 Hours (Table) 08/21/22 09:03 Urine Culture - Preliminary Urine,Voided Thrombosis Risk Factor Assmnt - DVT/VTE Prophylaxis DVT/VTE Prophylaxis: Pharmacologic Prophylaxis ordered Assessment and Plan Assessment: Intractable nausea vomiting and generalized weakness Acute colitis extending from the cecum to the sigmoid colon. Small bowel partial obstruction Acute urinary tract infection. Complicated with urostomy bag Lactic acidosis 3.1 improving History of bladder cancer s/p surgery History of breast cancer s/p surgery and radiation History of retroperitoneal mass and was done immunotherapy through the end of April of this year. Previous history of smoking Hypertension DVT prophylaxis with heparin subcu Plan: Patient will be continued on IV hydration with normal saline and follow-up lactic acid level. Continue with antibiotics in the form of ceftriaxone and Flagyl for colitis and urinary tract infection. Follow-up urine culture report. General surgery was consulted due to bowel obstruction. Patient will be kept nothing by mouth. Symptomatic management of pain. Replace electrolytes and follow-up closely. Continue with home medications. Prognosis is guarded. Time with Patient: Greater than 30
[2022-08-22] MEDS: HEPARIN SODIUM,PORCINE/PF 5,000 UNIT/0.5 ML SYRINGE SQ SCH ×4 (01:38→23:28)
[2022-08-22] MEDS: metroNIDAZOLE-NS PMX 500 MG in SALINE 1 100ML.BAG IVPB SCH ×4 (04:41→23:27)
[2022-08-22] MEDS: SODIUM CHLORIDE 0.9% 1,000 ML IV SCH ×2 (07:17→12:51)
[2022-08-22] MEDS: METOPROLOL TARTRATE 50 MG TAB PO SCH ×2 (08:31→20:08)
[2022-08-22] MEDS: hydrALAZINE HCL 10 MG TAB PO SCH ×2 (08:32→20:08)
[2022-08-22] MEDS: CHOLECALCIFEROL 25 MCG (1000 IU) TABLET PO SCH (08:32)
[2022-08-22] MEDS: PANTOPRAZOLE 40 MG/10 ML VIAL IV SCH (08:33)
[2022-08-22] MEDS: VERAPAMIL SR 120 MG TABLET.ER PO SCH (08:33)
[2022-08-22] MEDS: lisinopriL 20 MG TAB PO SCH (08:33)
[2022-08-22] MEDS: MORPHINE SULFATE IR 15 MG TABLET PO SCH ×2 (08:35→20:12)
[2022-08-22] MEDS ORDERED: cefTRIAXone IN SWFI 1,000 MG/10 ML SYRINGE IVP SCH (09:00)
[2022-08-22 11:09] LABS: Basophils # (A) 0.01 X 10*3/uL (0.00-0.10); Basophils % (A) 0.1 %; Eosinophils # (A) 0 X 10*3/uL (0.04-0.35); Eosinophils % (A) 0 %; HCT 34.2 % (37.2-46.3); HGB 11.2 g/dL (12.0-15.0); Immature Grans, Automated 0.5 %; Lymphocytes # (A) 0.63 X 10*3/uL (0.90-5.00); Lymphocytes % (A) 7.5 %; MCH 30.3 pg (27.0-32.0); MCHC 32.7 g/dL (32.0-37.0); MCV 92.4 fL (80.0-97.0); Mean Platelet Volume 11.5 fL (9.5-12.2); Monocytes # (A) 1.21 X 10*3/uL (0.20-1.00); Monocytes % (A) 14.3 %; NRBC Per 100 WBC 0 /100 WBCS (0.0-0.0); Neutrophils # (A) 6.55 X 10*3/uL (1.80-7.70); Neutrophils % (A) 77.6 %; Platelet Count 193 X 10*3/uL (140-440); RDW 14.6 % (11.5-14.5); WBC 8.44 X 10*3/uL (4.50-10.00)
[2022-08-22 11:35] LABS: African American GFR (CKD) 56.5 (60.0-200.0); Anion Gap 9.1 mmol/L (10.00-18.00); BUN/Creat Ratio 15.73 Ratio (12.00-20.00); Blood Urea Nitrogen 17.3 mg/dL (9.0-27.0); Calcium 8.1 mg/dL (8.7-10.3); Carbon Dioxide 22.9 mmol/L (20.0-27.5); Non-African American GFR(CKD) 48.7 (60.0-200.0); Potassium 4.2 mmol/L (3.5-5.5)
--- NOTE | 2022-08-22 12:54 | P.PN ---
Subjective Progress Note Date: 08/22/22 Principal diagnosis: Colitis, partial small bowel obstruction and urinary tract infection 76 years old with extensive comorbidities extensive surgery history of renal cell carcinoma of the kidney bladder cancer underwent left nephrectomy and cystectomy multiple other surgeries recently been diagnosed with retroperitoneal mass by waiting PET/CT at the end of the month was admitted yesterday with abdominal pain nausea vomiting was found to have UTI colitis on computed tomography scan questionable small bowel obstruction most probably secondary to colitis and ileus secondary to the colitis and the urinary tract infection. Today the patient abdominal pain completely resolved she is hungry would like to eat she looks much better not in apparent distress. On exam she still have the left lower quadrant tenderness associated with her colitis Objective - Vital Signs Vital signs: Vital Signs Temp 98.5 F 08/22/22 11:35 Pulse 62 08/22/22 11:35 Resp 16 08/22/22 11:35 BP 193/77 08/22/22 11:35 Pulse Ox 95 08/22/22 11:35 FiO2 Intake & Output 08/21/22 08/22/22 08/22/22 18:59 06:59 18:59 Intake Total 250 Output Total 500 Balance 250 -500 Weight 78.925 kg Intake: Intake, IV Titration 250 Amount Sodium Chloride 0.9% 1, 150 000 ml @ 75 mls/hr IV . [id number] JACOBY Rx#:[id number] metroNIDAZOLE-NS PMX 500 100 mg In Saline 1 100ml.bag @ 100 mls/hr IVPB Q6H JACOBY Rx#:[id number] Output: Urine 500 - Constitutional General appearance: Present: average body habitus, cooperative, obese - EENT Eyes: Present: EOMI, PERRLA - Neck Neck: Present: normal ROM Thyroid: negative: nodule - Respiratory Respiratory: bilateral: rales - Cardiovascular Rhythm: regular Heart sounds: normal: S1, S2 - Gastrointestinal General gastrointestinal: Present: normal bowel sounds, soft, tenderness. Absent: distended, rigid, umbilical hernia Localized gastrointestinal: tender: LLQ - Labs CBC & Chem 7: 08/22/22 06:32 08/22/22 06:32 Labs: Abnormal Lab Results - Last 24 Hours (Table) 08/22/22 08/22/22 Range/Units 06:32 06:32 RBC 3.70 L (4.10-5.20) X 10*6/uL Hgb 11.2 L (12.0-15.0) g/dL Hct 34.2 L (37.2-46.3) % RDW 14.6 H (11.5-14.5) % Lymphocytes # 0.63 L (0.90-5.00) X 10*3/uL Monocytes # 1.21 H (0.20-1.00) X 10*3/uL Eosinophils # 0 L (0.04-0.35) X 10*3/uL Anion Gap 9.10 L (10.00-18.00) mmol/L Est GFR (CKD-EPI)AfAm 56.5 L (60.0-200.0) Est GFR (CKD-EPI)NonAf 48.7 L (60.0-200.0) Calcium 8.1 L (8.7-10.3) mg/dL Microbiology - Last 24 Hours (Table) 08/21/22 09:03 Urine Culture - Preliminary Urine,Voided Assessment and Plan (1) Colitis Narrative/Plan: Patient is being admitted agree with IV antibiotics, bowel rest/nothing by mouth, serial abdominal exams, recommend GI consult Recommend stool cultures, stool for ova and parasite, checked for C. diff, stool white blood count Results abdominal pain today responded well to the IV antibiotics she is passing flatus no bowel movement no blood awaiting stool for the stool studies. She is moderately tender to deep palpation but no abdominal pain at rest doing very well Current Visit: Yes Status: Acute Code(s): K52.9 - NONINFECTIVE GASTROENTERITIS AND COLITIS, UNSPECIFIED SNOMED Code(s): 04532060 (2) Small bowel obstruction Narrative/Plan: 08/21/22 Place NG tube, keep the patient nothing by mouth, I believe this is a partial small bowel obstruction will perform serial abdominal exam and with management of colitis this is expected to resolve if not will evaluate the patient in a daily basis and if there is no resolution of the OBSTRUCTION PATIENT MIGHT NEED SURGICAL EXPLORATION FOR LYSIS OF ADHESION. 08/22/22 Today the patient feels much better no abdominal pain she is passing flatus moderate tenderness to left lower quadrant remnant of her colitis which is responding well to the IV antibiotics. The small bowel obstruction resolved patient is passing flatus will start the patient included liquid diet today continue antibiotics to surgical intervention I don't think the patient will need any surgical intervention during this hospitalization. I have discussed this with the patient in detail as well as with her . They understand the plan and agree with it. I have answered all the questions and concerns to her satisfaction. Current Visit: Yes Status: Acute Code(s): K56.609 - UNSP INTESTNL OBST, UNSP TO PARTIAL VERSUS COMPLETE OBST SNOMED Code(s): 645116030 (3) UTI (urinary tract infection) Current Visit: Yes Status: Acute Code(s): N39.0 - URINARY TRACT INFECTION, SITE NOT SPECIFIED SNOMED Code(s): 47389934 (4) Abdominal pain Current Visit: No Status: Acute Code(s): R10.9 - UNSPECIFIED ABDOMINAL PAIN SNOMED Code(s): 80930625 (5) Retroperitoneal mass Current Visit: No Status: Acute Code(s): R19.00 - INTRA-ABD AND PELVIC SWELLING, MASS AND LUMP, UNSP SITE SNOMED Code(s): 75043368
[2022-08-22] MEDS: amLODIPine 5 MG TAB PO SCH (16:11)
[2022-08-23] MEDS: PRAMIPEXOLE 0.25 MG TAB PO SCH ×2 (00:18→20:13)
[2022-08-23] MEDS: SODIUM CHLORIDE 0.9% 1,000 ML IV SCH ×2 (05:23→16:18)
[2022-08-23] MEDS: metroNIDAZOLE-NS PMX 500 MG in SALINE 1 100ML.BAG IVPB SCH ×4 (05:23→23:16)
[2022-08-23] MEDS: ONDANSETRON 4 MG/2 ML VIAL IVP PRN ×2 (05:40→16:19)
[2022-08-23] MEDS ORDERED: hydrALAZINE HCL 20 MG/ML 1 ML VIAL IVP STA (06:17)
[2022-08-23] MEDS: HEPARIN SODIUM,PORCINE/PF 5,000 UNIT/0.5 ML SYRINGE SQ SCH ×3 (07:52→23:17)
[2022-08-23] MEDS: CHOLECALCIFEROL 25 MCG (1000 IU) TABLET PO SCH (07:55)
[2022-08-23] MEDS: METOPROLOL TARTRATE 50 MG TAB PO SCH ×2 (07:55→20:13)
[2022-08-23] MEDS: lisinopriL 20 MG TAB PO SCH (07:55)
[2022-08-23] MEDS: MORPHINE SULFATE IR 15 MG TABLET PO SCH ×2 (07:56→20:13)
[2022-08-23] MEDS: hydrALAZINE HCL 10 MG TAB PO SCH ×2 (07:56→20:13)
[2022-08-23] MEDS: amLODIPine 5 MG TAB PO SCH (07:56)
[2022-08-23] MEDS: PANTOPRAZOLE 40 MG/10 ML VIAL IV SCH (07:58)
[2022-08-23] MEDS: VERAPAMIL SR 120 MG TABLET.ER PO SCH (07:58)
[2022-08-23 09:23] LABS: Basophils # (A) 0.01 X 10*3/uL (0.00-0.10); Basophils % (A) 0.1 %; Eosinophils # (A) 0.02 X 10*3/uL (0.04-0.35); Eosinophils % (A) 0.2 %; HCT 39.5 % (37.2-46.3); HGB 12.7 g/dL (12.0-15.0); Immature Grans, Automated 0.6 %; Lymphocytes # (A) 0.93 X 10*3/uL (0.90-5.00); MCH 29.9 pg (27.0-32.0); MCHC 32.2 g/dL (32.0-37.0); MCV 92.9 fL (80.0-97.0); Mean Platelet Volume 11.3 fL (9.5-12.2); Monocytes # (A) 1.05 X 10*3/uL (0.20-1.00); Monocytes % (A) 12.5 %; NRBC Per 100 WBC 0 /100 WBCS (0.0-0.0); Neutrophils # (A) 6.37 X 10*3/uL (1.80-7.70); Neutrophils % (A) 75.6 %; Platelet Count 209 X 10*3/uL (140-440); RBC 4.25 X 10*6/uL (4.10-5.20); RDW 14.6 % (11.5-14.5); WBC 8.43 X 10*3/uL (4.50-10.00)
[2022-08-23 09:32] LABS: African American GFR (CKD) 74.9 (60.0-200.0); Anion Gap 11.4 mmol/L (10.00-18.00); BUN/Creat Ratio 13.89 Ratio (12.00-20.00); Blood Urea Nitrogen 12.1 mg/dL (9.0-27.0); Calcium 8.7 mg/dL (8.7-10.3); Non-African American GFR(CKD) 64.6 (60.0-200.0); Potassium 3.6 mmol/L (3.5-5.5)
--- NOTE | 2022-08-23 10:35 | P.PN ---
Subjective Progress Note Date: 08/22/22 Patient is a 76-year-old female with a known history of hypertension, history of breast cancer status postsurgery, radiation, history of left kidney and bladder cancer status post hysterectomy and chronic urostomy bag and osteoarthritis and previous history of smoking presents to ER with complaints of nausea vomiting and generalized weakness. Patient states that her symptoms started last night and has been throwing up since this morning. No complaints of fever or chills. Patient does have pain in the left lower quadrant. Patient was also constipated 2 to 3 days and has been taking laxatives at home. 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 Ramirez of for management. She was on immunotherapy through the end of April of this year. PET scan obtained in May revealed complete positive treatment response. Patient states that she is supposed to repeat the PET scan on 09/03/2022. CT of the abdomen pelvis showed colitis extending from the cecum to the sigmoid colon. Small bowel dilation up to 3.1 cm with some small bowel features cu ltures dedicated small bowel follow-through throughout underlying component of obstruction. Findings could be secondary to #1. Postsurgical bladder with ileal conduit changes. Small left pleural effusion and small ascites. EKG showed sinus rhythm with sinus arrhythmia. Laboratory test showed WBC 12.3 hemoglobin 13.7 platelets 135 Sodium 138 potassium 4.2 chloride 104 bicarb is 23 BUN 39 creatinine 0.78 and lactic acid 3.1 Total protein 2.7 amylase less than 30 lipase 17 and urinalysis showed cloudy with 1+ protein and 3+ ketones and small blood and nitrite positive with large leukocyte esterase with elevated RBCs and WBCs. Coronavirus PCR and influenza a and B not detected. 08/22/2022 Patient is an acute resting in bed. Awake alert and oriented 3. Patient states that her abdominal pain is better. Does have bowel sounds on exam. No bowel movement yet. Otherwise patient is requesting to be on liquids. Patient has been afebrile. Continued on antibiotics for colitis. General surgery is on board. Patient has been afebrile. No nausea or vomiting. No headache or dizziness lightheadedness. No chest pain or shortness breath. Laboratory data showed WBC 8.4 hemoglobin 11.2 and platelets 193 extra sodium 141 potassium 4.2 chloride 100 bicarb is 22.9 BUN 17.3 and creatinine 1.1 and calcium 8.1 Current medications reviewed. Objective - Vital Signs Vital signs: Vital Signs Temp 98.2 F 08/22/22 21:00 Pulse 69 08/22/22 21:00 Resp 16 08/22/22 21:00 BP 189/74 08/22/22 21:00 Pulse Ox 96 08/22/22 21:00 FiO2 Intake & Output 08/22/22 08/22/22 08/23/22 06:59 18:59 06:59 Intake Total 1100 Output Total 500 1000 Balance -500 100 Intake: Intake, IV Titration 1100 Amount Sodium Chloride 0.9% 1, 900 000 ml @ 75 mls/hr IV . [id number] JACOBY Rx#:[id number] metroNIDAZOLE-NS PMX 500 200 mg In Saline 1 100ml.bag @ 100 mls/hr IVPB Q6H JACOBY Rx#:[id number] Output: Urine 500 1000 Other: # Bowel Movements 3 - Exam PHYSICAL EXAMINATION: Patient is lying in the bed comfortably, no acute distress, awake alert and oriented.. HEENT: Normocephalic. Neck is supple. Pupils reactive. Nostrils clear. Oral cavity is moist. Neck reveals no JVD, carotid bruits, or thyromegaly. CHEST EXAMINATION: Trachea is central. Symmetrical expansion. Lung layne clear to auscultation and percussion. CARDIAC: Normal S1, S2 with no gallops. No murmurs ABDOMEN: Soft. Bowel sounds normal. No organomegaly. No abdominal bruits. Extremities: reveal no edema. No clubbing or cyanosis Neurologically awake, alert, oriented x3 with well-coordinated movements. No focal deficits noted Skin: No rash or skin lesions. Psychiatric: Coperative. Nonsuicidal Musculoskeletal: No joint swelling or deformity. Normal range of motion. - Labs CBC & Chem 7: 08/23/22 05:29 08/23/22 05:29 Labs: Abnormal Lab Results - Last 24 Hours (Table) 08/22/22 08/22/22 Range/Units 06:32 06:32 RBC 3.70 L (4.10-5.20) X 10*6/uL Hgb 11.2 L (12.0-15.0) g/dL Hct 34.2 L (37.2-46.3) % RDW 14.6 H (11.5-14.5) % Lymphocytes # 0.63 L (0.90-5.00) X 10*3/uL Monocytes # 1.21 H (0.20-1.00) X 10*3/uL Eosinophils # 0 L (0.04-0.35) X 10*3/uL Anion Gap 9.10 L (10.00-18.00) mmol/L Est GFR (CKD-EPI)AfAm 56.5 L (60.0-200.0) Est GFR (CKD-EPI)NonAf 48.7 L (60.0-200.0) Calcium 8.1 L (8.7-10.3) mg/dL Microbiology - Last 24 Hours (Table) 08/21/22 09:03 Urine Culture - Preliminary Urine,Voided Gram Neg Bacilli Assessment and Plan Assessment: Intractable nausea vomiting and generalized weakness Acute colitis extending from the cecum to the sigmoid colon. Small bowel partial obstruction Acute urinary tract infection. Complicated with urostomy bag Lactic acidosis 3.1 improving History of bladder cancer s/p surgery History of breast cancer s/p surgery and radiation History of retroperitoneal mass and was done immunotherapy through the end of April of this year. Previous history of smoking Hypertension DVT prophylaxis with heparin subcu Plan: Patient will be continued on IV hydration with normal saline and follow-up lactic acid level normalized. Continue with antibiotics in the form of ceftriaxone and Flagyl for colitis and urinary tract infection. Follow-up urine culture report. General surgery was consulted due to bowel obstruction. Will start on clear liquid diet once cleared by surgery.. Symptomatic management of pain. Replace electrolytes and follow-up closely. Continue with home medications. Prognosis is guarded. Time with Patient: Greater than 30
--- NOTE | 2022-08-23 11:33 | P.CONS ---
History of Present Illness - Reason for Consult Consult date: 08/23/22 Abdominal pain, colitis Requesting physician: Solomon Thomas - Chief Complaint Abdominal pain, nausea and vomiting - History of Present Illness This is a pleasant 76-year-old female who presented to the emergency department 2 days ago with complaints of abdominal pain, nausea and vomiting. She also was complaining of constipation. She has a long-standing history of constipation and has to use multiple laxatives at home. 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 She is scheduled to undergo a repeat PET scan this month. She follows with Dr. Malave. She has a history of a left nephrectomy, cystectomy, resection left ureter, ilial conduit, is status post breast cancer diagnosed 2006, with radiation and surgery. Previous hysterectomy as well. As part of the patient's workup in the emergency department she underwent a CT of the abdomen and pelvis without contrast that reported colitis extending from the cecum to the sigmoid colon, small bowel dilation up to 3.1 cm with some small bowel feces consider dedicated small bowel follow-through. Postsurgical changes bladder with ileal conduit changes, small left pleural effusion, small ascites. Initially general surgery was consulted and they placed an NG tube, and had been watching patient. Yesterday she apparently was feeling better, abdominal pain, nausea and v omiting had improved so they they started her on clear liquid diet. Today she states she is having abdominal pain again and nausea but no vomiting. Gastroenterology was consulted for colitis. She's been started on Rocephin and Flagyl on admission. She's been afebrile, no leukocytosis. Admitted with a gram-negative bacilli urine culture. She reports taking multiple laxatives for constipation. She has a history of being on morphine and [place]. Last colonoscopy was several years ago she believes by Dr. Roa. States she is due for colonoscopy. No previous history of colitis. She states she started having multiple loose bowel movements throughout the night, nonbloody, states watery/green. Review of Systems REVIEW OF SYSTEMS: CARDIOPULMONARY: No chest pain or shortness of breath. Gastrointestinal: Abdominal pain. Nausea, no vomiting. . No hematemesis, coffee-ground emesis. No rectal bleeding, or melena. Chronic constipation, no diarrhea, nonbloody, grade. GENITOURINARY: No dysuria or hematuria. MUSCULOSKELETAL: Reports normal range of motion. Chronic back pain. SKIN: No rashes. No jaundice. ENDOCRINE: No chills, fevers. No excessive weight gain or loss. No polydipsia or polyuria. PSYCHIATRIC: Unremarkable. NEUROLOGY: No change in mental status. Denies dizziness, headache. ENT: Vision unremarkable. CONSTITUTIONAL: No recent weight loss. No fever, chills, night sweats. Past Medical History Past Medical History: Cancer, GERD/Reflux, Hypertension Additional Past Medical History / Comment(s): 2007-breast cancer with surgery, radiation and Tamoxifen, left kidney and bladder cancer -surgery with chemo and hysterectomy., hx colon polyps., pt has urostomy., states constipation for 3 months, has used suppositories, and enemas, past blood in stool and dark black s tools., states pain right abdomen by her stoma. , states abdomen is soft but feels swollen. History of Any Multi-Drug Resistant Organisms: None Reported Past Surgical History: Bladder Surgery, Breast Surgery, Joint Replacement Additional Past Surgical History / Comment(s): 2004 TOTAL RIGHT HIP, 2006 LEFT BREAST LUPECTOMY, 2009 LEFT KIDNEY REMOVED, BLADDER SURGERY WITH UROSTOMY, 2017 TOTAL LEFT HIP. Past Anesthesia/Blood Transfusion Reactions: No Reported Reaction Smoking Status: Former smoker - Past Family History Mother Family Medical History: No Reported History Medications and Allergies Home Medications Medication Instructions Recorded Confirmed Type Atorvastatin [Lipitor] 20 mg PO TUSA 11/04/21 08/21/22 History Metoprolol Tartrate [Lopressor] 100 mg PO BID 11/04/21 08/21/22 History Verapamil HCl [Verapamil ER] 120 mg PO DAILY 11/04/21 08/21/22 History hydrALAZINE HCL [Apresoline] 10 mg PO BID 11/04/21 08/21/22 History lisinopriL 40 mg PO DAILY 11/04/21 08/21/22 History oxyCODONE HCL/ACETAMINOPHEN 1 tab PO Q4HR PRN 3 Days #18 tab 11/10/21 08/21/22 Rx [Percocet 10-325 mg] Cholecalciferol (Vitamin D3) 75 mcg PO DAILY 11/12/21 08/21/22 History [Vitamin D3 (3000 Iu)] Piroxicam 20 mg PO DAILY 11/12/21 08/21/22 History Morphine Sulfate Ir [MSIR] 15 mg PO BID 08/21/22 08/21/22 History Pramipexole [Mirapex] 0.25 mg PO HS 08/22/22 08/22/22 History Allergies Allergy/AdvReac Type Severity Reaction Status Date / Time codeine Allergy Rash/Hives, Verified 08/21/22 13:25 red all over colesevelam [From WelChol] Allergy Unknown Verified 08/21/22 13:25 duloxetine [From Cymbalta] Allergy Unknown Verified 08/21/22 13:25 latex Allergy positive Verified 08/21/22 13:25 allergy testing nickel Allergy positive Verified 08/21/22 13:25 allergy testing tramadol Allergy Unknown Verified 08/21/22 13:25 valsartan [From Diovan] Allergy Unknown Verified 08/21/22 13:25 zolpidem [From Ambien] Allergy Unknown Verified 08/21/22 13:25 Physical Exam Vitals: Vital Signs Temp Pulse Resp BP BP Pulse Ox 08/23/22 10:29 65 134/71 08/23/22 08:07 75 204/92 08/23/22 06:27 194/79 08/23/22 05:00 98.6 F 67 16 209/88 97 08/22/22 21:00 98.2 F 69 16 189/74 96 08/22/22 11:35 98.5 F 62 16 193/77 95 Intake and Output 08/22/22 08/23/22 08/23/22 22:59 06:59 14:59 Intake Total 1340 Output Total 1000 Balance 340 Intake: Intake, IV Titration 1100 Amount Sodium Chloride 0.9% 1, 900 000 ml @ 75 mls/hr IV . [id number] JACOBY Rx#:[id number] metroNIDAZOLE-NS PMX 500 200 mg In Saline 1 100ml.bag @ 100 mls/hr IVPB Q6H JACOBY Rx#:[id number] Oral 240 Output: Urine 1000 Other: # Bowel Movements 1 3 General appearance: The patient is alert, oriented, appears in no acute distress. HET: Head is normocephalic and atraumatic. Conjunctiva pink. Sclera anicteric. Neck: Supple without lymphadenopathy. Trachea midline. Heart: S1 S2. Regular rate and rhythm. Lungs: Clear to auscultation. Abdomen: Soft, diffuse tenderness, nondistended with bowel sounds. No guarding or rigidity. Right abdomen with ileal conduit, clear urine. Skin: No rashes. No jaundice. Extremities: Normal skin color and turgor. No pedal edema. Neurological: No focal deficits. Alert and oriented x3. Results CBC & Chem 7: 08/23/22 05:29 08/23/22 05:29 Labs: Abnormal Lab Results - Last 24 Hours (Table) 08/22/22 08/22/22 08/23/22 Range/Units 06:32 06:32 05:29 RBC 3.70 L (4.10-5.20) X 10*6/uL Hgb 11.2 L (12.0-15.0) g/dL Hct 34.2 L (37.2-46.3) % RDW 14.6 H 14.6 H (11.5-14.5) % Immature Gran # 0.05 H (0.00-0.04) X 10*3/uL Lymphocytes # 0.63 L (0.90-5.00) X 10*3/uL Monocytes # 1.21 H 1.05 H (0.20-1.00) X 10*3/uL Eosinophils # 0 L 0.02 L (0.04-0.35) X 10*3/uL Anion Gap 9.10 L (10.00-18.00) mmol/L Est GFR (CKD-EPI)AfAm 56.5 L (60.0-200.0) Est GFR (CKD-EPI)NonAf 48.7 L (60.0-200.0) Calcium 8.1 L (8.7-10.3) mg/dL Microbiology - Last 24 Hours (Table) 08/22/22 17:44 Stool Culture - Preliminary Stool 08/21/22 09:03 Urine Culture - Preliminary Urine,Voided Gram Neg Bacilli CT scan - abdomen: report reviewed (CT of the abdomen and pelvis without contrast that reported colitis extending from the cecum to the sigmoid colon, small bowel dilation up to 3.1 cm with some small bowel feces consider dedicated small bowel follow-through. 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 Patient was initially diagnosed with colitis, small bowel obstruction and seen by general surgery. NG tube was placed, she was made nothing by mouth and symptoms had resolved. Yesterday she was started on a clear liquid diet. On admission she was also started on IV antibiotics Flagyl and Rocephin. She was diagnosed with a urinary tract infection. No previous history of colitis. Unsure of last colonoscopy, believes Dr. Anglin had performed it. Questionable possibility of colonoscopy done on 11/05/2021, However patient states she was recommended by her oncologist Dr. Malave that she was due for a screening colonoscopy. 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 Patient was initially diagnosed with colitis, small bowel obstruction and seen by general surgery. NG tube was placed, she was made nothing by mouth and symptoms had resolved. Yesterday she was started on a clear liquid diet. On admission she was also started on IV antibiotics Flagyl and Rocephin. She was diagnosed with a urinary tract infection. No previous history of colitis. Unsure of last colonoscopy, believes Dr. Anglin had performed it. Questionable possibility of colonoscopy done on 11/05/2021, However patient states she was recommended by her oncologist Dr. Malave that she was due for a screening colonoscopy. Current Visit: No Status: Acute Code(s): R10.9 - UNSPECIFIED ABDOMINAL PAIN SNOMED Code(s): 96483544 (3) Small bowel obstruction Current Visit: Yes Status: Acute Code(s): K56.609 - UNSP INTESTNL OBST, UNSP TO PARTIAL VERSUS COMPLETE OBST SNOMED Code(s): 316661390 (4) History of bladder cancer Current Visit: Yes Status: Acute Code(s): Z85.51 - PERSONAL HISTORY OF MALIGNANT NEOPLASM OF BLADDER SNOMED Code(s): 216125250 (5) History of breast cancer Current Visit: Yes Status: Acute Code(s): Z85.3 - PERSONAL HISTORY OF MALIGNANT NEOPLASM OF BREAST SNOMED Code(s): 582805926 (6) UTI (urinary tract infection) Current Visit: Yes Status: Acute Code(s): N39.0 - URINARY TRACT INFECTION, SITE NOT SPECIFIED SNOMED Code(s): 59117743 Plan: 1. Continue symptomatic supportive care 2. Continue clear liquid diet 3. C. diff, stool cultures ordered 4. Continue IV antibiotics as ordered 5. Will recommend MiraLAX daily to twice a day outpatient to regulate bowel movements 6. No plans at this time for endoscopic evaluation, patient to be scheduled as an outpatient for colonoscopy 7. Further recommendations forthcoming based on clinical course Thank you for this consultation, we will continue to follow. Dr. Phi Rice I agree with the dictator's note, documented as a scribe by Suki Rodrigues.
--- NOTE | 2022-08-23 17:20 | P.PN ---
Subjective Progress Note Date: 08/23/22 Supplies and 76-year-old female with past medical history of bladder cancer, breast cancer, recent retroperitoneal cancer on immunotherapy through the end of April this year, presented with intractable nausea, vomiting, generalized weakness, diagnosed with small bowel obstruction, colitis, treated with IV fluid hydration, IV antibiotics of Flagyl and Rocephin. Patient also presented with UTI with culture reporting gram-negative bacilli. Reports Dr. Carmona recommended patient proceed with a screening colonoscopy prior to her admission. Yesterday placed on clear liquid diet, reporting abdominal pain diffuse in the lower quadrants more prominent in the bilateral upper quadrants, positive nausea, no emesis denies flatus, reports green diarrhea. Afebrile, normal WBC Objective - Vital Signs Vital signs: Vital Signs Temp 98.6 F 08/23/22 05:00 Pulse 65 08/23/22 10:29 Resp 16 08/23/22 05:00 BP 134/71 08/23/22 10:29 Pulse Ox 97 08/23/22 05:00 FiO2 Intake & Output 08/22/22 08/23/22 08/23/22 18:59 06:59 18:59 Intake Total 1100 240 Output Total 1000 Balance 100 240 Intake: Intake, IV Titration 1100 Amount Sodium Chloride 0.9% 1, 900 000 ml @ 75 mls/hr IV . [id number] JACOBY Rx#:[id number] metroNIDAZOLE-NS PMX 500 200 mg In Saline 1 100ml.bag @ 100 mls/hr IVPB Q6H JACOBY Rx#:[id number] Oral 240 Output: Urine 1000 Other: # Bowel Movements 3 3 - Exam - Exam PHYSICAL EXAMINATION: General: A&O x 3, lying in the bed comfortably, no acute distress HEENT: Normocephalic. Neck is supple. Pupils reactive.MMM. Neck : supple, no JVD. CHEST EXAMINATION: Trachea is central. Symmetrical expansion. Lung layne clear to auscultation and percussion. CARDIAC: Normal S1, S2 with no gallops. No murmurs ABDOMEN: Soft. Diffuse tenderness , greatest in bilateral upper quadrants.Bowel sounds normal. No guarding, no rigidity Right abdomen with ileal conduit-clear urine. Extremities: reveal no edema. No clubbing or cyanosis Neurological: Continue to 12 grossly intact, no focal deficits. Skin: No rash, warm and dry. - Labs CBC & Chem 7: 08/23/22 05:29 08/23/22 05:29 Labs: Abnormal Lab Results - Last 24 Hours (Table) 08/22/22 08/23/22 Range/Units 17:44 05:29 RDW 14.6 H (11.5-14.5) % Immature Gran # 0.05 H (0.00-0.04) X 10*3/uL Monocytes # 1.05 H (0.20-1.00) X 10*3/uL Eosinophils # 0.02 L (0.04-0.35) X 10*3/uL Stool Lactoferrin POSITIVE A (NEGATIVE) Microbiology - Last 24 Hours (Table) 08/21/22 09:03 Urine Culture - Final Urine,Voided Escherichia coli 08/22/22 17:44 Stool Culture - Preliminary Stool Assessment and Plan Assessment: Intractable nausea vomiting and generalized weakness Acute colitis extending from the cecum to the sigmoid colon. Small bowel partial obstruction Acute urinary tract infection, gram-negative bacilli. 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 Previous history of smoking Hypertension Plan: Continue on current medication regime ,monitoring and symptomatic treatment. Repeat blood pressure pending, recently received hydralazine .Maintain gentle IV fluid hydration, antibiotics, Rocephin and Flagyl.Gi Consulted. Stool studies/C. difficile culture ordered. Pain management, diet advancement as per surgery. The impression and plan of care has been dictated as directed. : I performed a history and examination of this patient, discussed the same with the dictator. I agree with the dictator's note ,documented as a scribe. Any additional findings or plans will be noted.
[2022-08-23 18:09] VITALS: TEMP 98.7
[2022-08-24] MEDS: SODIUM CHLORIDE 0.9% 1,000 ML IV SCH (05:46)
[2022-08-24] MEDS: metroNIDAZOLE-NS PMX 500 MG in SALINE 1 100ML.BAG IVPB SCH ×2 (05:47→12:56)
[2022-08-24] MEDS: CHOLECALCIFEROL 25 MCG (1000 IU) TABLET PO SCH (08:00)
[2022-08-24] MEDS: MORPHINE SULFATE IR 15 MG TABLET PO SCH (08:00)
[2022-08-24] MEDS: METOPROLOL TARTRATE 50 MG TAB PO SCH (08:00)
[2022-08-24] MEDS: amLODIPine 5 MG TAB PO SCH (08:01)
[2022-08-24] MEDS: lisinopriL 20 MG TAB PO SCH (08:01)
[2022-08-24] MEDS: PANTOPRAZOLE 40 MG/10 ML VIAL IV SCH (08:02)
[2022-08-24] MEDS: HEPARIN SODIUM,PORCINE/PF 5,000 UNIT/0.5 ML SYRINGE SQ SCH (08:02)
[2022-08-24] MEDS: hydrALAZINE HCL 10 MG TAB PO SCH (08:12)
[2022-08-24] MEDS: VERAPAMIL SR 120 MG TABLET.ER PO SCH (08:12)
[2022-08-24 11:54] VITALS: BP 159/74; PULSE 59; RESP 16
--- NOTE | 2022-08-24 14:09 | P.PN ---
Subjective Progress Note Date: 08/24/22 Principal diagnosis: Colitis, small bowel obstruction This is a pleasant 76-year-old female who presented to the emergency department 2 days ago with complaints of abdominal pain, nausea and vomiting. She also was complaining of constipation. She has a long-standing history of constipation and has to use multiple laxatives at home. 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 She is scheduled to undergo a repeat PET scan this month. She follows with Dr. Malave. She has a history of a left nephrectomy, cystectomy, resection left u reter, ilial conduit, is status post breast cancer diagnosed 2006, with radiation and surgery. Previous hysterectomy as well. As part of the patient's workup in the emergency department she underwent a CT of the abdomen and pelvis without contrast that reported colitis extending from the cecum to the sigmoid colon, small bowel dilation up to 3.1 cm with some small bowel feces consider dedicated small bowel follow-through. Postsurgical changes bladder with ileal conduit changes, small left pleural effusion, small ascites. Initially general surgery was consulted and they placed an NG tube, and had been watching patient. Yesterday she apparently was feeling better, abdominal pain, nausea and vomiting had improved so they they started her on clear liquid diet. Today she states she is having abdominal pain again and nausea but no vomiting. Gastroenterology was consulted for colitis. She's been started on Rocephin and Flagyl on admission. She's been afebrile, no leukocytosis. Admitted with a gram-negative bacilli urine culture. She reports taking multiple laxatives for constipation. She has a history of being on morphine and [place]. Last colonoscopy was several years ago she believes by Dr. Roa. States she is due for colonoscopy. No previous history of colitis. She states she started having multiple loose bowel movements throughout the night, nonbloody, states watery/green. 08/24/2022: Patient is seen and examined today as a follow-up. Diarrhea has completely resolved. She denies any abdominal pain, has some mild nausea but no vomiting. Diet is being advanced to low fiber diet for lunch. Medicine team is planning on discharge this afternoon if she tolerates her diet. Objective - Vital Signs Vital signs: Vital Signs Temp 98.7 F 08/24/22 05:00 Pulse 65 08/24/22 05:00 Resp 18 08/24/22 05:00 BP 175/78 08/24/22 05:00 Pulse Ox 96 08/24/22 05:00 FiO2 Intake & Output 08/23/22 08/24/22 08/24/22 18:59 06:59 18:59 Intake Total 1050 640 Balance 1050 640 Intake: Intake, IV Titration 1050 Amount Sodium Chloride 0.9% 1, 900 000 ml @ 75 mls/hr IV . [id number] JACOBY Rx#:[id number] cefTRIAXone 1 gm In 50 Sodium Chloride 0.9% 50 ml @ 100 mls/hr IVPB Q24H JACOBY Rx#:[id number] metroNIDAZOLE-NS PMX 500 100 mg In Saline 1 100ml.bag @ 100 mls/hr IVPB Q6H JACOBY Rx#:[id number] Oral 640 Other: # Voids 2 # Bowel Movements 2 - Exam General appearance: The patient is alert, oriented, appears in no acute distress. HET: Head is normocephalic and atraumatic. Conjunctiva pink. Sclera anicteric. Neck: Supple. Abdomen: Soft, nontender, nondistended with bowel sounds. No guarding or rigidity. Right abdomen with ileal conduit, clear urine. Skin: No rashes. No jaundice. Extremities: Normal skin color and turgor. No pedal edema. Neurological: No focal deficits. Alert and oriented x3. 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 Patient was initially diagnosed with colitis, small bowel obstruction and seen by general surgery. NG tube was placed, she was made nothing by mouth and symptoms had resolved. Yesterday she was started on a clear liquid diet. On admission she was also started on IV antibiotics Flagyl and Rocephin. She was diagnosed with a urinary tract infection. No previous history of colitis. Unsure of last colonoscopy, believes Dr. Anglin had performed it. Questionable possibility of colonoscopy done on 11/05/2021, However patient states she was recommended by her oncologist Dr. Malave that she was due for a screening colonoscopy. 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 Patient was initially diagnosed with colitis, small bowel obstruction and seen by general surgery. NG tube was placed, she was made nothing by mouth and symptoms had resolved. Yesterday she was started on a clear liquid diet. On admission she was also started on IV antibiotics Flagyl and Rocephin. She was diagnosed with a urinary tract infection. No previous history of colitis. Unsure of last colonoscopy, believes Dr. Anglin had performed it. Questionable possibility of colonoscopy done on 11/05/2021, However patient states she was recommended by her oncologist Dr. Malave that she was due for a screening colonoscopy. Current Visit: No Status: Acute Code(s): R10.9 - UNSPECIFIED ABDOMINAL PAIN SNOMED Code(s): 12968292 (3) Small bowel obstruction Current Visit: Yes Status: Acute Code(s): K56.609 - UNSP INTESTNL OBST, UNSP TO PARTIAL VERSUS COMPLETE OBST SNOMED Code(s): 410212452 (4) History of bladder cancer Current Visit: Yes Status: Acute Code(s): Z85.51 - PERSONAL HISTORY OF MALIGNANT NEOPLASM OF BLADDER SNOMED Code(s): 284046329 (5) History of breast cancer Current Visit: Yes Status: Acute Code(s): Z85.3 - PERSONAL HISTORY OF MALIGNANT NEOPLASM OF BREAST SNOMED Code(s): 639089360 (6) UTI (urinary tract infection) Current Visit: Yes Status: Acute Code(s): N39.0 - URINARY TRACT INFECTION, SITE NOT SPECIFIED SNOMED Code(s): 04773611 Plan: 1. Continue symptomatic supportive care 2. Agree with advance diet as tolerated 3. C. diff, stool cultures ordered however not collected 4. Will recommend MiraLAX daily to twice a day outpatient to regulate bowel movements 5. No plans at this time for endoscopic evaluation, patient to be scheduled as an outpatient for colonoscopy Thank you for this consultation, patient is cleared from gastroenterology for discharge. Dr. Phi Rice I agree with the dictator's note, documented as a scribe by Suki Rodrigues.
--- NOTE | 2022-08-24 14:39 | P.DS ---
Providers Date of admission: 08/21/22 10:45 Expected date of discharge: 08/24/22 Attending physician: Solomon Thomas MD Consults: 08/21/22 10:43 Consult Physician Urgent Consulting Provider: Ivis Bravo Consult Reason/Comments: Colitis, possible SBO Do you want consulting provider notified?: Yes 08/23/22 10:17 Consult Physician Routine Consulting Provider: Acacia Rice Consult Reason/Comments: ABD pain,colitis Do you want consulting provider notified?: Yes Primary care physician: Solomon Thomas MD Hospital Course: Final Diagnoses: Acute colitis extending from the cecum to the sigmoid colon. Small bowel partial obstruction. Acute urinary tract infection, E. coli. Complicated secondary to urostomy, present on admission. 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 Patient also presented with UTI with culture reporting gram-negative bacilli. Reports Dr. Carmona recommended patient proceed with a screening colonoscopy prior to her admission. Yesterday placed on clear liquid diet, reporting abdominal pain diffuse in the lower quadrants more prominent in the bilateral upper quadrants, positive nausea, no emesis denies flatus, reports green diarrhea. Afebrile, normal WBC Reports feels better this morning. Abdominal pain resolved with minimal tenderness in the bilateral upper/epigastric areas with palpation. Tolerating clear liquid diet, actually had oatmeal this morning, tolerated well with no nausea vomiting. Diarrhea has resolved. Requesting diet advancement. Patient will be discharged home later this afternoon pending patient tolerates low fiber lunch, final DC recommendations and clearance per surgery. Patient has been cleared by GI for discharge. The impression and plan of care has been dictated as directed. : I performed a history and examination of this patient, discussed the same with the dictator. I agree with the dictator's note ,documented as a scribe. Any additional findings or plans will be noted. Patient Condition at Discharge: Stable Plan - Discharge Summary New Discharge Prescriptions: New Ondansetron Odt [Zofran Odt] 4 mg PO Q8HR PRN #15 tab PRN Reason: Nausea polyethylene glycoL 3350 [Miralax] 17 gm PO DAILY #30 packet amLODIPine [Norvasc] 5 mg PO DAILY #30 tab Continue Verapamil HCl [Verapamil ER] 120 mg PO DAILY lisinopriL 40 mg PO DAILY oxyCODONE HCL/ACETAMINOPHEN [Percocet 10-325 mg] 1 tab PO Q4HR PRN 3 Days #18 tab PRN Reason: Pain Morphine Sulfate Ir [MSIR] 15 mg PO BID Pramipexole [Mirapex] 0.25 mg PO HS hydrALAZINE HCL [Apresoline] 10 mg PO BID Atorvastatin [Lipitor] 20 mg PO TUSA Metoprolol Tartrate [Lopressor] 100 mg PO BID Cholecalciferol (Vitamin D3) [Vitamin D3 (3000 Iu)] 75 mcg PO DAILY Piroxicam 20 mg PO DAILY Discharge Medication List Atorvastatin [Lipitor] 20 mg PO TUSA 11/04/21 [History] Metoprolol Tartrate [Lopressor] 100 mg PO BID 11/04/21 [History] Verapamil HCl [Verapamil ER] 120 mg PO DAILY 11/04/21 [History] hydrALAZINE HCL [Apresoline] 10 mg PO BID 11/04/21 [History] lisinopriL 40 mg PO DAILY 11/04/21 [History] oxyCODONE HCL/ACETAMINOPHEN [Percocet 10-325 mg] 1 tab PO Q4HR PRN 3 Days #18 tab 11/10/21 [Rx] Cholecalciferol (Vitamin D3) [Vitamin D3 (3000 Iu)] 75 mcg PO DAILY 11/12/21 [History] Piroxicam 20 mg PO DAILY 11/12/21 [History] Morphine Sulfate Ir [MSIR] 15 mg PO BID 08/21/22 [History] Pramipexole [Mirapex] 0.25 mg PO HS 08/22/22 [History] Ondansetron Odt [Zofran Odt] 4 mg PO Q8HR PRN #15 tab 08/24/22 [Rx] amLODIPine [Norvasc] 5 mg PO DAILY #30 tab 08/24/22 [Rx] polyethylene glycoL 3350 [Miralax] 17 gm PO DAILY #30 packet 08/24/22 [Rx] Follow up Appointment(s)/Referral(s): Solomon Thomas MD [Primary Care Provider] - 1-2 days Acacia Rice MD [STAFF PHYSICIAN] - 4 Weeks
--- NOTE | 2022-08-26 10:17 | CDI ---
Pt Name: Mackenzie Burns CONFIDENTIAL MR#: [id number] Adm Date: 08/21/2022 10:45:00 AM Printed:08/26/2022 Physician Documentation Request Page 1 of 2 ICD-10-CM [facility] Documentation Request This Form is Not a Permanent Document in the Medical Record Pt Name: Mackenzie Burns MR #: [id number] Payor: MEDICARE Unit/Bed: [address] [place] [address] Adm Date: 08/21/2022 10:45:00 AM Reviewer: Sherry Echevarria Query Date: 08/26/22 By submitting this query, we are merely seeking further clarification of documentation to accurately reflect all conditions that you are monitoring, evaluating, treating or that extend the hospitalization or utilize additional resources of care. Please utilize your independent clinical judgment when addressing the question(s) below. Dear Doctor Solomon Thomas, The patients Clinical Indicators include: * There is documentation of elevated lactic acidosis. Additional clarification of the acuity of the condition is requested. History/Risk Factors: partial bowel obstruction w colitis, UTI w Urostomy d/t E coli, dehydration, Clinical Indicators: Presenting to the ER with 3 days history of constipation a bowel movement and intractable nausea and vomiting some low-grade fever on admission she was found to have positive leukocytosis urinary tract infection and computed tomography scan finding showing colitis with dilated old loops of small bowel transition point questionable partial small bowel obstruction she was severely dehydrated with elevated lactic acidosis. Treatment: IV fluids, IV Dilaudid, NPO, IV antibiotics Can you please clarify the acuity of the acidosis]? [ ] Acute [ ] Chronic [ ] History of [ ] Other, please specify [ ] Unable to determine PLEASE DOCUMENT ANY ADDITIONAL DIAGNOSES AND/OR SPECIFICITY IN THE PROGRESS NOTES AND/OR DISCHARGE SUMMARY. acute MTDD
== END 2022-08-24 16:00 | disposition home or self-care (01) | DRG 699 ==
LOC: EC 08:13 → 5NMEDONC 10:45
PROVIDERS: ADMIT Family Medicine; ATTEND Family Medicine
DX: N99.531 Infection of continent stoma of urinary tract (principal); E87.21 Acute metabolic acidosis; K56.690 Other partial intestinal obstruction; N39.0 Urinary tract infection, site not specified; E86.0 Dehydration; Z20.822 Contact with and (suspected) exposure to COVID-19; B96.20 Unspecified Escherichia coli [E. coli] as the cause of diseases classified elsewhere; K52.9 Noninfective gastroenteritis and colitis, unspecified; I10 Essential (primary) hypertension; K21.9 Gastro-esophageal reflux disease without esophagitis; M19.90 Unspecified osteoarthritis, unspecified site; Z79.891 Long term (current) use of opiate analgesic; Z79.1 Long term (current) use of non-steroidal anti-inflammatories (NSAID); Z79.899 Other long term (current) drug therapy; Z85.54 Personal history of malignant neoplasm of ureter; Z90.5 Acquired absence of kidney; Z85.3 Personal history of malignant neoplasm of breast; Z92.3 Personal history of irradiation; Z92.21 Personal history of antineoplastic chemotherapy; Z96.641 Presence of right artificial hip joint; Z87.891 Personal history of nicotine dependence; Z85.528 Personal history of other malignant neoplasm of kidney; Z85.51 Personal history of malignant neoplasm of bladder; Z88.6 Allergy status to analgesic agent; Z91.040 Latex allergy status; Z88.5 Allergy status to narcotic agent; Z88.8 Allergy status to other drugs, medicaments and biological substances; Z91.048 Other nonmedicinal substance allergy status
CPT/HCPCS: 36415; 74176; 80048; 80053; 81001; 82150; 83605; 83630; 83690; 83735; 84484; 85025; 85610; 85730; 87045; 87046; 87077; 87086; 87186; 87502; 87635; 93005; 96374; 96375; 96376; 99285

== ENCOUNTER → 2022-09-03 | Outpatient (CLI) | payer MEDICARE, OTHER ==
--- NOTE | 2022-09-05 17:21 | PE ---
EXAMINATION TYPE: PET CT fusion skull to thigh DATE OF EXAM: 09/03/2022 CLINICAL INDICATION:Female, 76 years old with history of C67.8 Bladder cancer; TECHNIQUE: Following the intravenous administration of 10.4 mCi of F-18 FDG, whole body images are performed from the skull base to the midthigh. Images are reviewed on the computer in the coronal, a xial, and sagittal planes. Reconstructed rotating images are created on independent workstation and reviewed on the computer. A non-contrast CT is performed in conjunction with the PET scan. Glucose level 98 mg/dL COMPARISON: CT 08/21/2022, PET/CT 05/28/2022, FINDINGS: Mediastinal SUV mean is 1.5. Hepatic parenchyma SUV mean is 2.6. SKULL BASE AND NECK: No suspicious FDG activity. CHEST, MEDIASTINUM, AND HILAR REGION: No suspicious FDG activity. ABDOMEN AND PELVIS: No suspicious FDG activity. Physiologic uptake seen within the bowel. OSSEOUS STRUCTURES: No suspicious FDG activity. OTHER CT: Atherosclerosis of the arterial vasculature including the coronary arteries. There is trace left pleural effusion. Heart is moderately enlarged for size. Aortic valve leaflet calcifications ar e present. Left kidney is surgically absent. The bladder is surgically absent. Loop ileostomy noted. No abnormal soft tissue. IMPRESSION: No suspicious FDG activity, no new areas of active neoplastic recurrence or metastatic disease identi fied.
== END | disposition home or self-care (01) ==
LOC: RADPETMAIN 14:45
PROVIDERS: ATTEND Internal Medicine Hematology & Oncology
DX: C67.8 Malignant neoplasm of overlapping sites of bladder (principal)
CPT/HCPCS: 78815; A9552

== ENCOUNTER 2022-09-09 11:37 | Emergency (ER) | payer MEDICARE, OTHER ==
[2022-09-09 11:41] VITALS: RESP 18
[2022-09-09] MEDS ORDERED: SODIUM CHLORIDE 0.9% 1,000 ML IV STA (12:26)
[2022-09-09] MEDS ORDERED: METOCLOPRAMIDE 5 MG/ML 2 ML VIAL IVP STA (12:27)
--- NOTE | 2022-09-09 12:52 | ED ---
Arrhythmia/Palpitations HPI - General Chief Complaint: Arrhythmia/Palpitations Stated Complaint: PCP Sent,High heart rate Time Seen by Provider: 09/09/22 11:45 Source: patient, RN notes reviewed Mode of arrival: wheelchair Limitations: no limitations - History of Present Illness Initial Comments: 76-year-old female presents emergency Department chief complaint of generalized weakness. Patient follow-up with her PCP today secondary to recent hypokalemia. Patient states she is very weak she's had decreased oral appetite she did have recent hospitalization discharged 2 weeks ago after colitis, small bowel obstruction. Patient had recent PET scan which show any new metastatic disease. Patient does have history of bladder cancer, breast cancer. Patient denies any fevers or chills no chest pain or shortness breath currently. She states she just feels very weak and around. Patient does complain of nausea currently which is inhibiting her ability for oral intake. - Related Data Home Medications Medication Instructions Recorded Confirmed Atorvastatin [Lipitor] 20 mg PO TUSA 11/04/21 09/09/22 Metoprolol Tartrate [Lopressor] 100 mg PO BID 11/04/21 09/09/22 Verapamil HCl [Verapamil ER] 120 mg PO DAILY 11/04/21 09/09/22 hydrALAZINE HCL [Apresoline] 10 mg PO BID 11/04/21 09/09/22 lisinopriL 40 mg PO DAILY 11/04/21 09/09/22 Cholecalciferol (Vitamin D3) 75 mcg PO DAILY 11/12/21 09/09/22 [Vitamin D3 (3000 Iu)] Piroxicam 20 mg PO DAILY 11/12/21 09/09/22 Morphine Sulfate Ir [MSIR] 15 mg PO BID 08/21/22 09/09/22 Pramipexole [Mirapex] 0.25 mg PO HS 08/22/22 09/09/22 amLODIPine [Norvasc] 5 mg PO DAILY PRN 09/09/22 09/09/22 polyethylene glycoL 3350 [Miralax] 17 gm PO DAILY PRN 09/09/22 09/09/22 Previous Rx's Medication Instructions Recorded oxyCODONE HCL/ACETAMINOPHEN 1 tab PO Q4HR PRN 3 Days #18 tab 11/10/21 [Percocet 10-325 mg] Ondansetron Odt [Zofran Odt] 4 mg PO Q8HR PRN #15 tab 08/24/22 Nitrofurantoin Monohyd/M-Cryst 100 mg PO Q12HR #14 cap 09/09/22 [Macrobid] Allergies Allergy/AdvReac Type Severity Reaction Status Date / Time codeine Allergy Rash/Hives, Verified 09/09/22 13:21 red all over colesevelam [From WelChol] Allergy Unknown Verified 09/09/22 13:21 duloxetine [From Cymbalta] Allergy Unknown Verified 09/09/22 13:21 latex Allergy positive Verified 09/09/22 13:21 allergy testing nickel Allergy positive Verified 09/09/22 13:21 allergy testing tramadol Allergy Unknown Verified 09/09/22 13:21 valsartan [From Diovan] Allergy Unknown Verified 09/09/22 13:21 zolpidem [From Ambien] Allergy Unknown Verified 09/09/22 13:21 Review of Systems ROS Statement: Those systems with pertinent positive or pertinent negative responses have been documented in the HPI. ROS Other: All systems not noted in ROS Statement are negative. Past Medical History Past Medical History: Cancer, GERD/Reflux, Hypertension Additional Past Medical History / Comment(s): 2007-breast cancer with surgery, radiation and Tamoxifen, left kidney and bladder cancer -surgery with chemo and hysterectomy., hx colon polyps., pt has urostomy., states constipation for 3 months, has used suppositories, and enemas, past blood in stool and dark black stools., states pain right abdomen by her stoma. , states abdomen is soft but feels swollen. History of Any Multi-Drug Resistant Organisms: None Reported Past Surgical History: Bladder Surgery, Breast Surgery, Joint Replacement Additional Past Surgical History / Comment(s): 2004 TOTAL RIGHT HIP, 2006 LEFT BREAST LUPECTOMY, 2009 LEFT KIDNEY REMOVED, BLADDER SURGERY WITH UROSTOMY, 2017 TOTAL LEFT HIP. Past Anesthesia/Blood Transfusion Reactions: No Reported Reaction Past Psychological History: No Psychological Hx Reported Smoking Status: Former smoker - Past Family History Mother Family Medical History: No Reported History General Exam Limitations: no limitations General appearance: alert, in no apparent distress Head exam: Present: atraumatic, normocephalic, normal inspection Eye exam: Present: normal appearance, PERRL, EOMI. Absent: scleral icterus, conjunctival injection, periorbital swelling ENT exam: Present: normal exam, normal oropharynx, mucous membranes moist, TM's normal bilaterally Neck exam: Present: normal inspection, full ROM. Absent: tenderness, meningismus, lymphadenopathy Respiratory exam: Present: normal lung sounds bilaterally. Absent: respiratory distress, wheezes, rales, rhonchi, stridor Cardiovascular Exam: Present: regular rate, normal rhythm, normal heart sounds. Absent: systolic murmur, diastolic murmur, rubs, gallop, clicks GI/Abdominal exam: Present: soft, normal bowel sounds. Absent: distended, tenderness, guarding, rebound, rigid Neurological exam: Present: alert Skin exam: Present: warm, dry, intact, normal color. Absent: rash Course Vital Signs 09/09/22 09/09/22 09/09/22 11:38 12:15 13:44 Temperature 98.3 F Pulse Rate 64 64 71 Respiratory 18 18 18 Rate Blood Pressure 149/74 O2 Sat by Pulse 97 97 Oximetry 09/09/22 13:51 Temperature Pulse Rate 65 Respiratory 18 Rate Blood Pressure 135/66 O2 Sat by Pulse Oximetry Medical Decision Making - Medical Decision Making 76-year-old presented for possible A. fib, UTI. Patient does not have any evidence of atrial fibrillation, patient's was hydrated found have evidence of urinary tract infection. Patient discharged on oral antibiotics last urine culture shows E. coli sensitive to all antibiotics. Patient will be discharged on Keflex return parameters were discussed. - Lab Data Result diagrams: 09/09/22 12:28 09/09/22 13:46 Lab Results 09/09/22 09/09/22 09/09/22 Range/Units 12:28 12:28 12:44 WBC 6.7 (3.8-10.6) k/uL RBC 4.33 (3.80-5.40) m/uL Hgb 13.4 (11.4-16.0) gm/dL Hct 40.3 (34.0-46.0) % MCV 93.1 (80.0-100.0) fL MCH 31.0 (25.0-35.0) pg MCHC 33.3 (31.0-37.0) g/dL RDW 14.2 (11.5-15.5) % Plt Count 152 (150-450) k/uL MPV 10.2 Neutrophils % 78 % Lymphocytes % 8 % Monocytes % 11 % Eosinophils % 0 % Basophils % 0 % Neutrophils # 5.2 (1.3-7.7) k/uL Lymphocytes # 0.6 L (1.0-4.8) k/uL Monocytes # 0.8 (0-1.0) k/uL Eosinophils # 0.0 (0-0.7) k/uL Basophils # 0.0 (0-0.2) k/uL PT (9.0-12.0) sec INR (<1.2) APTT (22.0-30.0) sec Sodium (137-145) mmol/L Potassium (3.5-5.1) mmol/L Chloride (98-107) mmol/L Carbon Dioxide (22-30) mmol/L Anion Gap mmol/L BUN (7-17) mg/dL Creatinine (0.52-1.04) mg/dL Est GFR (CKD-EPI)AfAm (>60 ml/min/1.73 sqM) Est GFR (CKD-EPI)NonAf (>60 ml/min/1.73 sqM) Glucose (74-99) mg/dL Plasma Lactic Acid Naeem (0.7-2.0) mmol/L Calcium (8.4-10.2) mg/dL Phosphorus (2.5-4.5) mg/dL Magnesium (1.6-2.3) mg/dL Total Bilirubin (0.2-1.3) mg/dL AST (14-36) U/L ALT (4-34) U/L Alkaline Phosphatase (38-126) U/L Troponin I 0.019 (0.000-0.034) ng/mL Total Protein (6.3-8.2) g/dL Albumin (3.5-5.0) g/dL Urine Color Light Yellow Urine Appearance Cloudy H (Clear) Urine pH 7.0 (5.0-8.0) Ur Specific Hancock 1.007 (1.001-1.035) Urine Protein Trace H (Negative) Urine Glucose (UA) Negative (Negative) Urine Ketones Negative (Negative) Urine Blood Negative (Negative) Urine Nitrite Positive H (Negative) Urine Bilirubin Negative (Negative) Urine Urobilinogen <2.0 (<2.0) mg/dL Ur Leukocyte Esterase Large H (Negative) Urine RBC 2 (0-5) /hpf Urine WBC 32 H (0-5) /hpf Amorphous Sediment Few H (None) /hpf Urine Bacteria Moderate H (None) /hpf Hyaline Casts 1 (0-2) /lpf 09/09/22 09/09/22 09/09/22 Range/Units 13:46 13:46 13:46 WBC (3.8-10.6) k/uL RBC (3.80-5.40) m/uL Hgb (11.4-16.0) gm/dL Hct (34.0-46.0) % MCV (80.0-100.0) fL MCH (25.0-35.0) pg MCHC (31.0-37.0) g/dL RDW (11.5-15.5) % Plt Count (150-450) k/uL MPV Neutrophils % % Lymphocytes % % Monocytes % % Eosinophils % % Basophils % % Neutrophils # (1.3-7.7) k/uL Lymphocytes # (1.0-4.8) k/uL Monocytes # (0-1.0) k/uL Eosinophils # (0-0.7) k/uL Basophils # (0-0.2) k/uL PT 10.8 (9.0-12.0) sec INR 1.0 (<1.2) APTT 23.5 (22.0-30.0) sec Sodium 136 L (137-145) mmol/L Potassium 4.3 (3.5-5.1) mmol/L Chloride 105 (98-107) mmol/L Carbon Dioxide 24 (22-30) mmol/L Anion Gap 7 mmol/L BUN 13 (7-17) mg/dL Creatinine 0.92 (0.52-1.04) mg/dL Est GFR (CKD-EPI)AfAm 70 (>60 ml/min/1.73 sqM) Est GFR (CKD-EPI)NonAf 61 (>60 ml/min/1.73 sqM) Glucose 97 (74-99) mg/dL Plasma Lactic Acid Naeem 1.3 (0.7-2.0) mmol/L Calcium 7.8 L (8.4-10.2) mg/dL Phosphorus 4.1 (2.5-4.5) mg/dL Magnesium 2.0 (1.6-2.3) mg/dL Total Bilirubin 0.6 (0.2-1.3) mg/dL AST 16 (14-36) U/L ALT 11 (4-34) U/L Alkaline Phosphatase 65 (38-126) U/L Troponin I (0.000-0.034) ng/mL Total Protein 4.9 L (6.3-8.2) g/dL Albumin 2.8 L (3.5-5.0) g/dL Urine Color Urine Appearance (Clear) Urine pH (5.0-8.0) Ur Specific Hancock (1.001-1.035) Urine Protein (Negative) Urine Glucose (UA) (Negative) Urine Ketones (Negative) Urine Blood (Negative) Urine Nitrite (Negative) Urine Bilirubin (Negative) Urine Urobilinogen (<2.0) mg/dL Ur Leukocyte Esterase (Negative) Urine RBC (0-5) /hpf Urine WBC (0-5) /hpf Amorphous Sediment (None) /hpf Urine Bacteria (None) /hpf Hyaline Casts (0-2) /lpf Disposition Clinical Impression: UTI (urinary tract infection) Disposition: HOME SELF-CARE Condition: Stable Instructions (If sedation given, give patient instructions): Urinary Tract Infection in Women (ED) Additional Instructions: Please return to the Emergency Department if symptoms worsen or any other concerns. Prescriptions: Nitrofurantoin Monohyd/M-Cryst [Macrobid] 100 mg PO Q12HR #14 cap Is patient prescribed a controlled substance at d/c from ED?: No Referrals: Solomon Thomas MD [Primary Care Provider] - 1-2 days Time of Disposition: 14:26
[2022-09-09 13:15] LABS: Basophils % (A) 0 %; Eosinophils % (A) 0 %; HCT 40.3 % (34.0-46.0); HGB 13.4 gm/dL (11.4-16.0); Lymphocytes # (A) 0.6 k/uL (1.0-4.8); Lymphocytes % (A) 8 %; MCHC 33.3 g/dL (31.0-37.0); MCV 93.1 fL (80.0-100.0); Mean Platelet Volume 10.2; Monocytes # (A) 0.8 k/uL (0-1.0); Monocytes % (A) 11 %; Neutrophils # (A) 5.2 k/uL (1.3-7.7); Neutrophils % (A) 78 %; Platelet Count 152 k/uL (150-450); RBC 4.33 m/uL (3.80-5.40); RDW 14.2 % (11.5-15.5); WBC 6.7 k/uL (3.8-10.6)
[2022-09-09 13:17] LABS: Amorphous Sediment,Urine Few /hpf; Appearance,Urine Cloudy (Clear); Bacteria,Urine Moderate /hpf; Bilirubin,Urine Negative (Negative); Blood,Urine Negative (Negative); Color,Urine Light Yellow; Glucose,Urine (UA) Negative (Negative); Hyaline Casts,Urine 1 /lpf (0-2); Ketones,Urine Negative (Negative); Leukocyte Esterase,Urine Large (Negative); Nitrite,Urine Positive (Negative); Protein,Urine Trace (Negative); RBC,Urine 2 /hpf (0-5); Specific Gravity,Urine 1.007 (1.001-1.035); Urobilinogen,Urine <2.0 mg/dL (<2.0); WBC,Urine 32 /hpf (0-5)
[2022-09-09 14:05] LABS: Albumin 2.8 g/dL (3.5-5.0); Calcium 7.8 mg/dL (8.4-10.2); Phosphorus 4.1 mg/dL (2.5-4.5); Potassium 4.3 mmol/L (3.5-5.1); Total Bilirubin 0.6 mg/dL (0.2-1.3); Total Protein 4.9 g/dL (6.3-8.2)
[2022-09-09 14:08] LABS: Partial Thromboplastin Time 23.5 sec (22.0-30.0); Prothrombin Time 10.8 sec (9.0-12.0)
[2022-09-09 14:57] VITALS: BP 148/74; PULSE 66; TEMP 98.6
== END 2022-09-09 14:57 | disposition home or self-care (01) ==
LOC: EC 11:37
DX: N39.0 Urinary tract infection, site not specified (principal); I10 Essential (primary) hypertension; Z88.5 Allergy status to narcotic agent; Z88.8 Allergy status to other drugs, medicaments and biological substances; Z91.040 Latex allergy status; Z79.899 Other long term (current) drug therapy; Z87.891 Personal history of nicotine dependence
CPT/HCPCS: 36415; 93005; 80053; 83605; 83735; 84100; 84484; 85025; 85610; 85730; 81001; 87086; 96374; 96361; 99285; J2765

== ENCOUNTER 2022-09-17 10:02 | Inpatient (IN) | payer MEDICARE, OTHER ==
[2022-09-17] MEDS ORDERED: ONDANSETRON 4 MG/2 ML VIAL IVP STA (10:19)
--- NOTE | 2022-09-17 10:28 | ED ---
Abdominal Pain HPI - General Chief Complaint: Abdominal Pain Stated Complaint: Abd pain Time Seen by Provider: 09/17/22 10:08 Source: patient, EMS, RN notes reviewed, old records reviewed Mode of arrival: EMS Limitations: no limitations - History of Present Illness Initial Comments: Patient is a 76-year-old female presents to the emergency room via EMS at the direction of her primary care provider for abdominal pain nausea and vomiting. She reports that her symptoms began approximately 12 hours ago and she has had 4 episodes of nausea and vomiting with vomit being brown in color along with having evidence of pills that she ingested this morning in the emesis. She states that she took oxycodone for pain with some relief with recurrence a pproximately 4 hours later. She was hospitalized from August 21 to August 24 with similar complaints and was found to have colitis she was treated with conservative management of an NG tube along with Rocephin and Flagyl symptoms improved and she was discharged home with an outpatient colonoscopy scheduled. She was also here in the emergency room on August 30 for hypokalemia and subsequent arrhythmia secondary to her hypokalemia she was treated for her hyperkalemia and was discharged after resolution of her arrhythmia and electrolyte disturbance. She has a significant past medical history including breast cancer, bladder cancer with urostomy, recurrent colitis, chronic constipation with intermittent laxative use, GERD, hyperlipidemia and hypertension. PET scan earlier in the month revealed no suspicious FDG activity, no new areas of active neoplasm recurrence or metastatic disease identified. - Related Data Home Medications Medication Instructions Recorded Confirmed Atorvastatin [Lipitor] 20 mg PO TUSA 11/04/21 09/09/22 Metoprolol Tartrate [Lopressor] 100 mg PO BID 11/04/21 09/09/22 Verapamil HCl [Verapamil ER] 120 mg PO DAILY 11/04/21 09/09/22 hydrALAZINE HCL [Apresoline] 10 mg PO BID 11/04/21 09/09/22 lisinopriL 40 mg PO DAILY 11/04/21 09/09/22 Cholecalciferol (Vitamin D3) 75 mcg PO DAILY 11/12/21 09/09/22 [Vitamin D3 (3000 Iu)] Piroxicam 20 mg PO DAILY 11/12/21 09/09/22 Morphine Sulfate Ir [MSIR] 15 mg PO BID 08/21/22 09/09/22 Pramipexole [Mirapex] 0.25 mg PO HS 08/22/22 09/09/22 amLODIPine [Norvasc] 5 mg PO DAILY PRN 09/09/22 09/09/22 polyethylene glycoL 3350 [Miralax] 17 gm PO DAILY PRN 09/09/22 09/09/22 Previous Rx's Medication Instructions Recorded oxyCODONE HCL/ACETAMINOPHEN 1 tab PO Q4HR PRN 3 Days #18 tab 11/10/21 [Percocet 10-325 mg] Ondansetron Odt [Zofran Odt] 4 mg PO Q8HR PRN #15 tab 08/24/22 Nitrofurantoin Monohyd/M-Cryst 100 mg PO Q12HR #14 cap 09/09/22 [Macrobid] Allergies Allergy/AdvReac Type Severity Reaction Status Date / Time codeine Allergy Rash/Hives, Verified 09/09/22 13:21 red all over colesevelam [From WelChol] Allergy Unknown Verified 09/09/22 13:21 duloxetine [From Cymbalta] Allergy Unknown Verified 09/09/22 13:21 latex Allergy positive Verified 09/09/22 13:21 allergy testing nickel Allergy positive Verified 09/09/22 13:21 allergy testing tramadol Allergy Unknown Verified 09/09/22 13:21 valsartan [From Diovan] Allergy Unknown Verified 09/09/22 13:21 zolpidem [From Ambien] Allergy Unknown Verified 09/09/22 13:21 Review of Systems ROS Statement: Those systems with pertinent positive or pertinent negative responses have been documented in the HPI. ROS Other: All systems not noted in ROS Statement are negative. Past Medical History Past Medical History: Cancer, GERD/Reflux, Hyperlipidemia, Hypertension Additional Past Medical History / Comment(s): 2007-breast cancer with surgery, radiation and Tamoxifen, left kidney and bladder cancer -surgery with chemo and hysterectomy., hx colon polyps., pt has urostomy., states constipation for 3 months, has used suppositories, and enemas, past blood in stool and dark black stools., states pain right abdomen by her stoma. , states abdomen is soft but feels swollen. History of Any Multi-Drug Resistant Organisms: None Reported Past Surgical History: Bladder Surgery, Breast Surgery, Joint Replacement Additional Past Surgical History / Comment(s): 2005 TOTAL RIGHT HIP, 2007 LEFT BREAST LUPECTOMY, 2010 LEFT KIDNEY REMOVED, BLADDER SURGERY WITH UROSTOMY, 2017 TOTAL LEFT HIP. Past Anesthesia/Blood Transfusion Reactions: No Reported Reaction Past Psychological History: No Psychological Hx Reported Smoking Status: Former smoker Past Alcohol Use History: None Reported Past Drug Use History: None Reported - Past Family History Mother Family Medical History: No Reported History General Exam Limitations: no limitations General appearance: alert, in no apparent distress Head exam: Present: atraumatic, normocephalic, normal inspection Eye exam: Present: normal appearance, PERRL, EOMI. Absent: scleral icterus, conjunctival injection, periorbital swelling ENT exam: Present: normal exam Neck exam: Present: normal inspection Respiratory exam: Present: normal lung sounds bilaterally. Absent: respiratory distress, wheezes, rales, rhonchi, stridor Cardiovascular Exam: Present: regular rate, normal rhythm, normal heart sounds. Absent: systolic murmur, diastolic murmur, rubs, gallop, clicks GI/Abdominal exam: Present: soft, tenderness (mid abdomen), normal bowel sounds. Absent: distended, guarding, rebound, rigid Rectal exam: Present: deferred External exam: Present: other (Urostomy intact with yellow urine draining.) Extremities exam: Present: normal inspection. Absent: pedal edema, joint swelling Back exam: Present: normal inspection Neurological exam: Present: alert, oriented X3, CN II-XII intact Psychiatric exam: Present: normal affect, normal mood Skin exam: Present: warm, dry, intact, normal color. Absent: rash Course Vital Signs 09/17/22 10:04 Temperature 98.4 F Pulse Rate 76 Respiratory 20 Rate Blood Pressure 169/93 O2 Sat by Pulse 100 Oximetry Medical Decision Making - Medical Decision Making 76-year-old female presenting with complaints of abdominal pain nausea and vomiting with recent colitis and questionable small bowel obstruction earlier in the month. Will initiate workup for evaluation for recurrence of col itis and possible small bowel obstruction with laboratory studies of CBC, CMP, amylase, lipase and lactic acid along with CT of the abdomen and pelvis without contrast. Will give Zofran for nausea. Pain intermittent and cramping will await response to Zofran prior to giving other analgesics. No episodes of emesis after Zofran. Complaining of continued pain will give morphine for pain. Pain improved after dose of morphine. CT of the abdomen shows new dilatation of small bowel loops in the mid abdomen correlate for ileus versus partial versus early complete bowel obstruction. CT results reviewed with Dr. Roa for evaluation for admission. Admission orders received patient to be admitted to his service with nothing by mouth status, NG tube and IV fluids. Will place orders. Case discussed with Dr. Bee. - Lab Data Result diagrams: 09/17/22 10:22 Lab Results 09/17/22 Range/Units 10:22 Sodium 137 (137-145) mmol/L Potassium 4.3 (3.5-5.1) mmol/L Chloride 104 (98-107) mmol/L Carbon Dioxide 24 (22-30) mmol/L Anion Gap 9 mmol/L BUN 13 (7-17) mg/dL Creatinine 0.96 (0.52-1.04) mg/dL Est GFR (CKD-EPI)AfAm 67 (>60 ml/min/1.73 sqM) Est GFR (CKD-EPI)NonAf 58 (>60 ml/min/1.73 sqM) Glucose 119 H (74-99) mg/dL Calcium 8.0 L (8.4-10.2) mg/dL Total Bilirubin 0.7 (0.2-1.3) mg/dL AST 22 (14-36) U/L ALT 11 (4-34) U/L Alkaline Phosphatase 73 (38-126) U/L Total Protein 5.2 L (6.3-8.2) g/dL Albumin 2.9 L (3.5-5.0) g/dL Amylase 36 (30-110) U/L Lipase 21 L (23-300) U/L - Radiology Data Radiology results: report reviewed, image reviewed CT abdomen and pelvis impression 1. No dilatation of small bowel loops in the mid abdomen, correlate for ileus, partial versus early complete bowel obstruction. Streaky artifact in the pelvis limits evaluation for pulmonary transition. There is small bowel feces present. 2. Circumferential wall thickening of the colon extending from the cecum to the splenic fissure correlate for colitis. 3. Trace ascites. 4 postsurgical changes to the bladder with ileal conduit. Disposition Clinical Impression: Bowel obstruction Disposition: ADMITTED IP TO THIS HOSP Condition: Stable Is patient prescribed a controlled substance at d/c from ED?: No Referrals: Solomon Thomas MD [Primary Care Provider] - 1-2 days Time of Disposition: 11:55
[2022-09-17 10:53] LABS: Albumin 2.9 g/dL (3.5-5.0); Total Bilirubin 0.7 mg/dL (0.2-1.3); Total Protein 5.2 g/dL (6.3-8.2)
[2022-09-17 10:58] LABS: Potassium 4.3 mmol/L (3.5-5.1)
[2022-09-17] MEDS ORDERED: MORPHINE SULFATE 4 MG/ML SYRINGE IVP STA (11:08)
--- NOTE | 2022-09-17 11:13 | CT ---
EXAMINATION TYPE: CT abdomen pelvis wo con CT DLP: 558.5 mGycm, Automated exposure control for dose reduction was used. DATE OF EXAM: 09/17/2022 10:45 AM COMPARISON: PET/CT 09/03/2022 CLINICAL INDICATION:Female, 76 years old with history of abdominal pain; abd pain TECHNIQUE: Axial CT of the abdomen and pelvis. Sagittal and coronal reformats were created on a [employer] workstation. Contrast used none Oral contrast used: without Oral Contrast FINDINGS: LOWER CHEST: Small left pleural effusion. ABDOMEN LIVER: Unremarkable GALLBLADDER AND BILE DUCTS: Unremarkable. PANCREAS: Unremarkable. SPLEEN: Unremarkable. ADRENAL GLANDS: Unremarkable. KIDNEYS AND URETERS: The left kidney is surgically absent. No evidence for recurrence. Surgical clips are present. The right kidney demonstrates no evidence hydronephrosis or obstructive uropathy. PELVIS BLADDER: Surgically absent with ileal conduit ostomy. REPRODUCTIVE: Unremarkable. ABDOMEN & PELVIS STOMACH AND BOWEL: Scattered dilated loops of small bowel which have increased from prior CT on 09/03. There is some small bowel feces seen within the abdomen and left lower quadrant predominantly streak artifact limits evaluation for suspected source of obstruction of the lower abdomen. There is circumferential wall thickening of the cecum and transverse colon extending to the splenic flexure wh ich is new from prior PET/CT. Post surgical changes of the bowel. PERITONEUM: No evidence of pneumope ritoneum. Trace abdominal free fluid. VASCULATURE: No evidence of aortic aneurysm. Atherosclerosis of the arterial vasculature. MUSCULOSKELETAL: No acute osseous abnormalities, bilateral arthroplasty changes with hardware in appr opriate position. Multiple level disc degeneration changes throughout the spine. Grade 1 anterolisthe sis of L4 and L5 and L5-S1. LYMPH NODES: No gross evidence for lymphadenopathy. SOFT TISSUE/ABDOMINAL WALL: Unremarkable IMPRESSION: 1. New dilation of small bowel loops in the mid abdomen, correlate for ileus, partial versus early co mplete bowel obstruction. Streak artifact in the pelvis limits evaluation for pulmonary transition. T here is small bowel feces present. 2. Circumferential wall thickening of the colon extending from the cecum to the splenic flexure corre late for colitis. 3. Trace ascites. 4. Postsurgical changes to the bladder with ileal conduit.
[2022-09-17] MEDS ORDERED: NALOXONE 0.4 MG/ML 1 ML VIAL IV PRN (11:47)
[2022-09-17] MEDS: SODIUM CHLORIDE 0.9% 1,000 ML IV SCH ×2 (12:37→17:25)
--- NOTE | 2022-09-17 13:26 | P.GSHP ---
History of Present Illness H&P Date: 09/17/22 CHIEF COMPLAINT: Abdominal pain HISTORY OF PRESENT ILLNESS: This is a 76-year-old female with history of breast cancer status post surgery, radiation and chemo, bladder cancer with cystectomy and urostomy, left kidney cancer status post nephrectomy and hysterectomy. Patient presents to emergency room with complaints of abdominal pain that started last night. The pain is in the upper abdomen. She was having nausea and vomiting. The emesis was yellowish in color. She reports the pain was very severe and sharp. She describes them as child birthing pains. She reports the pain was in the upper abdomen across the rib cage. She has been on chronic narcotic pain medication for her back pain. Apparently patient had a retroperitoneal mass in which she had undergone chemo treatment. She follows with Dr. Malave. Patient currently not on any chemotherapy treatment. Last chemo treatment was in July 2022. Patient had a recent hospitalization a couple weeks ago for colitis and small bowel obstruction. She was treated conservatively. Patient does report having flatus and diarrhea. She initially thought that her abdominal pain and nausea was due to a new medication, dronabinol. Computed tomography scan of pelvis showing new dilation of small bowel loops in the mid abdomen correlate for ileus, partial versus early complete bowel obstruction. Patient admitted to surgical service for small bowel obstruction. Patient has history of constipation and chronic narcotic use for her chronic pain. PAST MEDICAL HISTORY: See below PAST SURGICAL HISTORY: See below MEDICATIONS: See below ALLERGIES: See below SOCIAL HISTORY: No illicit drug use. REVIEW OF SYSTEMS: CONSTITUTIONAL: Denies fever or chills. HEENT: Denies blurred vision, vision changes, or eye pain. Denies hemoptysis CARDIOVASCULAR: Denies chest pain or pressure. RESPIRATORY: No shortness of breath. GASTROINTESTINAL: See HPI for pertinent findings HEMATOLOGIC: Denies bleeding disorders. GENITOURINARY: Denies any blood in urine or increased urinary frequency. SKIN: Denies pruitis. Denies rash. PHYSICAL EXAM: VITAL SIGNS: Reviewed GENERAL: Well-developed in no acute distress. HEENT: No sclera icterus. Extraocular movements grossly intact. Moist buccal mucosa. Head is atraumatic, normocephalic. No nasal drainage. ABDOMEN: Soft. Mildly distended. Upper abdomen tenderness NEUROLOGIC: Alert and oriented. Cranial nerves II through XII grossly intact. LABORATORY DATA: CBC pending Sodium is 137 potassium is 4.3 BUN 13 creatinine 0.96 Total bilirubin 0.7 AST 22 ALT 11 alk phos 73 lipase 21 IMAGING: Computed tomography scan abdomen and pelvis new dilation of small bowel loops in the mid abdomen, correlate for ileus, partial versus early complete bowel obstruction. Strict artifact in the pelvis limited evaluation for transition point. There is small bowel feces present. Circumferential wall thickening of the colon extending from the cecum to the splenic flexure correlate for colitis. Trace ascites. Postsurgical changes to the bladder with ileal conduit. ASSESSMENT: 1. Dilated small bowel loops in the mid abdomen with possible ileus versus partial small bowel obstruction noted on CAT scan 2. Multiple abdominal surgeries including cystectomy with urostomy, left nephrectomy and hysterectomy 3. Prior history of small bowel obstruction treated conservatively 4. History of colitis 5. History of constipation and chronic narcotic use PLAN: -Place NG tube for decompression -Keep patient nothing by mouth except ice chips -Continue IV fluids -Continue antiemetics as needed -Continue pain medication as needed -Consult medical service for medical management -GI prophylaxis Protonix and DVT prophylaxis subcu heparin Physician [facility] note has been reviewed by physician. Signing provider agrees with the documented findings, assessment, and plan of care. Past Medical History Past Medical History: Cancer, GERD/Reflux, Hyperlipidemia, Hypertension Additional Past Medical History / Comment(s): 2007-breast cancer with surgery, radiation and Tamoxifen, left kidney and bladder cancer -surgery with chemo and hysterectomy., hx colon polyps., pt has urostomy., states constipation for 3 months, has used suppositories, and enemas, past blood in stool and dark black stools., states pain right abdomen by her stoma. , states abdomen is soft but feels swollen. History of Any Multi-Drug Resistant Organisms: None Reported Past Surgical History: Bladder Surgery, Breast Surgery, Joint Replacement Additional Past Surgical History / Comment(s): 2004 TOTAL RIGHT HIP, 2006 LEFT BREAST LUPECTOMY, 2009 LEFT KIDNEY REMOVED, BLADDER SURGERY WITH UROSTOMY, 2017 TOTAL LEFT HIP. Past Anesthesia/Blood Transfusion Reactions: No Reported Reaction Past Psychological History: No Psychological Hx Reported Smoking Status: Former smoker Past Alcohol Use History: None Reported Past Drug Use History: None Reported - Past Family History Mother Family Medical History: No Reported History Medications and Allergies Home Medications Medication Instructions Recorded Confirmed Type Atorvastatin [Lipitor] 20 mg PO TUSA 11/04/21 09/17/22 History Metoprolol Tartrate [Lopressor] 100 mg PO BID 11/04/21 09/17/22 History Verapamil HCl [Verapamil ER] 120 mg PO DAILY 11/04/21 09/17/22 History hydrALAZINE HCL [Apresoline] 10 mg PO BID 11/04/21 09/17/22 History lisinopriL 40 mg PO DAILY 11/04/21 09/17/22 History oxyCODONE HCL/ACETAMINOPHEN 1 tab PO Q4HR PRN 3 Days #18 tab 11/10/21 09/17/22 Rx [Percocet 10-325 mg] Cholecalciferol (Vitamin D3) 75 mcg PO DAILY 11/12/21 09/17/22 History [Vitamin D3 (3000 Iu)] Piroxicam 20 mg PO DAILY 11/12/21 09/17/22 History Morphine Sulfate Ir [MSIR] 15 mg PO BID 08/21/22 09/17/22 History Pramipexole [Mirapex] 0.25 mg PO HS 08/22/22 09/17/22 History Ondansetron Odt [Zofran Odt] 4 mg PO Q8HR PRN #15 tab 08/24/22 09/17/22 Rx polyethylene glycoL 3350 [Miralax] 17 gm PO DAILY PRN 09/09/22 09/17/22 History Sulfamethox-Tmp 800-160Mg [Bactrim 1 tab PO BID 09/17/22 09/17/22 History DS 800-160 mg] Allergies Allergy/AdvReac Type Severity Reaction Status Date / Time codeine Allergy Rash/Hives, Verified 09/17/22 12:14 red all over colesevelam [From WelChol] Allergy Unknown Verified 09/17/22 12:14 duloxetine [From Cymbalta] Allergy Unknown Verified 09/17/22 12:14 latex Allergy positive Verified 09/17/22 12:14 allergy testing nickel Allergy positive Verified 09/17/22 12:14 allergy testing tramadol Allergy Unknown Verified 09/17/22 12:14 valsartan [From Diovan] Allergy Unknown Verified 09/17/22 12:14 zolpidem [From Ambien] Allergy Unknown Verified 09/17/22 12:14 Surgical - Exam Vital Signs Temp Pulse Resp BP Pulse Ox 98.4 F 76 20 169/93 100 09/17/22 10:04 09/17/22 10:04 09/17/22 10:04 09/17/22 10:04 09/17/22 10:04 Results - Labs 09/17/22 10: Abnormal Lab Results - Last 24 Hours (Table) 09/17/22 Range/Units 10: Glucose 119 H (74-99) mg/dL Calcium 8.0 L (8.4-10.2) mg/dL Total Protein 5.2 L (6.3-8.2) g/dL Albumin 2.9 L (3.5-5.0) g/dL Lipase 21 L (23-300) U/L Diabetes panel 09/17/22 Range/Units 10: Sodium 137 (137-145) mmol/L Potassium 4.3 (3.5-5.1) mmol/L Chloride 104 (98-107) mmol/L Carbon Dioxide 24 (22-30) mmol/L BUN 13 (7-17) mg/dL Creatinine 0.96 (0.52-1.04) mg/dL Glucose 119 H (74-99) mg/dL Calcium 8.0 L (8.4-10.2) mg/dL AST 22 (14-36) U/L ALT 11 (4-34) U/L Alkaline Phosphatase 73 (38-126) U/L Total Protein 5.2 L (6.3-8.2) g/dL Albumin 2.9 L (3.5-5.0) g/dL Calcium panel 09/17/22 Range/Units 10: Calcium 8.0 L (8.4-10.2) mg/dL Albumin 2.9 L (3.5-5.0) g/dL Pituitary panel 09/17/22 Range/Units 10:22 Sodium 137 (137-145) mmol/L Potassium 4.3 (3.5-5.1) mmol/L Chloride 104 (98-107) mmol/L Carbon Dioxide 24 (22-30) mmol/L BUN 13 (7-17) mg/dL Creatinine 0.96 (0.52-1.04) mg/dL Glucose 119 H (74-99) mg/dL Calcium 8.0 L (8.4-10.2) mg/dL Adrenal panel 09/17/22 Range/Units 10:22 Sodium 137 (137-145) mmol/L Potassium 4.3 (3.5-5.1) mmol/L Chloride 104 (98-107) mmol/L Carbon Dioxide 24 (22-30) mmol/L BUN 13 (7-17) mg/dL Creatinine 0.96 (0.52-1.04) mg/dL Glucose 119 H (74-99) mg/dL Calcium 8.0 L (8.4-10.2) mg/dL Total Bilirubin 0.7 (0.2-1.3) mg/dL AST 22 (14-36) U/L ALT 11 (4-34) U/L Alkaline Phosphatase 73 (38-126) U/L Total Protein 5.2 L (6.3-8.2) g/dL Albumin 2.9 L (3.5-5.0) g/dL
[2022-09-17] MEDS: PANTOPRAZOLE 40 MG/10 ML VIAL IVP SCH (13:59)
[2022-09-17] MEDS ORDERED: BENZOCAINE SPRAY 1 CAN MUCOUS MEM PRN (14:08)
[2022-09-17] MEDS: MORPHINE SULFATE 4 MG/ML SYRINGE IVP PRN ×2 (17:25→21:44)
[2022-09-17] MEDS: ONDANSETRON 4 MG/2 ML VIAL IVP PRN (21:45)
[2022-09-17] MEDS: HEPARIN SODIUM,PORCINE/PF 5,000 UNIT/0.5 ML SYRINGE SQ SCH (21:45)
[2022-09-18] MEDS: MORPHINE SULFATE 4 MG/ML SYRINGE IVP PRN ×3 (01:19→09:14)
[2022-09-18] MEDS: SODIUM CHLORIDE 0.9% 1,000 ML IV SCH ×2 (01:19→14:16)
[2022-09-18] MEDS: hydrALAZINE HCL 20 MG/ML 1 ML VIAL IVP PRN ×2 (01:57→08:48)
[2022-09-18] MEDS: ONDANSETRON 4 MG/2 ML VIAL IVP PRN ×2 (05:16→11:25)
[2022-09-18 07:56] LABS: African American GFR (CKD) 58 (>60 ml/min/1.73 sqM); Anion Gap 5 mmol/L; Blood Urea Nitrogen 14 mg/dL (7-17); Calcium 7.8 mg/dL (8.4-10.2); Carbon Dioxide 26 mmol/L (22-30); Chloride 107 mmol/L (98-107); Glucose 108 mg/dL (74-99); Non-African American GFR(CKD) 50 (>60 ml/min/1.73 sqM); Potassium 4.8 mmol/L (3.5-5.1); Sodium 138 mmol/L (137-145)
[2022-09-18 08:10] LABS: Basophils % (A) 1 %; Eosinophils % (A) 0 %; HCT 39.9 % (34.0-46.0); HGB 12.7 gm/dL (11.4-16.0); Hypochromasia Slight; Lymphocytes # (A) 0.4 k/uL (1.0-4.8); Lymphocytes % (A) 5 %; MCH 30.2 pg (25.0-35.0); MCHC 31.8 g/dL (31.0-37.0); Mean Platelet Volume 10.2; Monocytes # (A) 0.8 k/uL (0-1.0); Monocytes % (A) 11 %; Neutrophils # (A) 6.2 k/uL (1.3-7.7); Neutrophils % (A) 83 %; Platelet Count 213 k/uL (150-450); RDW 14.5 % (11.5-15.5); WBC 7.5 k/uL (3.8-10.6)
[2022-09-18] MEDS: HEPARIN SODIUM,PORCINE/PF 5,000 UNIT/0.5 ML SYRINGE SQ SCH ×2 (08:49→20:45)
[2022-09-18] MEDS: PANTOPRAZOLE 40 MG/10 ML VIAL IVP SCH ×2 (08:49→20:45)
--- NOTE | 2022-09-18 09:19 | XR ---
EXAMINATION TYPE: XR chest 1V portable DATE OF EXAM: 09/18/2022 COMPARISON: 04/01/2014 INDICATION: NG tube placement TECHNIQUE: Single frontal view of the chest is obtained. FINDINGS: The heart size is normal. The pulmonary vasculature is normal. Small left pleural effusion is present. Nasogastric tube is present and appears to extend through the right bronchus towards the right lung b ase. The floor was aware of the finding and the nasogastric tube was reported to have been withdrawn prior to dictation. IMPRESSION: 1. Small left pleural effusion. 2. Nasogastric tube appears to be in the right main bronchus.
--- NOTE | 2022-09-18 09:28 | P.PN ---
Progress Note - Text Progress Note Date: 09/18/22 Patient's chest x-ray shows a nasogastric tube in the right mainstem bronchus. Patient has had some flatus. On exam vital signs appear stable. Abdomen soft. Urostomy is functioning quadrant. Patient's nasogastric tube removed today. She'll remain nothing by mouth. We will anticipate starting diet tomorrow.
[2022-09-18] MEDS ORDERED: ONDANSETRON ODT 4 MG TAB PO PRN (10:38)
[2022-09-18] MEDS ORDERED: polyethylene glycoL 3350 17 GM POWD.PACK PO PRN (10:38)
[2022-09-18] MEDS ORDERED: MELOXICAM 7.5 MG TAB PO SCH (10:45)
[2022-09-18] MEDS: lisinopriL 20 MG TAB PO SCH (10:58)
[2022-09-18] MEDS: ATORVASTATIN 20 MG TAB PO SCH (11:01)
--- NOTE | 2022-09-18 11:55 | P.CONS ---
History of Present Illness - History of Present Illness 76-year-old female came in with the complaints of for a big abdominal pain epi gastric burning sensation nausea vomiting found to have ileus. Patient does have occasional gas patient patient is on opiates at home for cancer pain patient has history of breast cancer status post radiation and chemotherapy with the severe abdominal pain which is chronic. Patient takes Percocets and extended-release morphine along with piroxicam. Patient is passing gas now NG tube was removed. Patient had a recent hospitalization for partial small bowel obstruction at that time. CT of the abdomen and pelvis showed dilation of for small bowel loops in the mid abdomen consistent with the partial small bowel obstruction clear transition point was not evident. REVIEW OF SYSTEMS: CONSTITUTIONAL: No fever, no malaise, no fatigue. HEENT: No recent visual problems or hearing problems. Denied any sore throat. CARDIOVASCULAR: No chest pain, orthopnea, PND, no palpitations, no syncope. PULMONARY: No shortness of breath, no cough, no hemoptysis. GASTROINTESTINAL: As mentioned in HPI NEUROLOGICAL: No headaches, no weakness, no numbness. HEMATOLOGICAL: Denies any bleeding or petechiae. GENITOURINARY: Denies any burning micturition, frequency, or urgency. MUSCULOSKELETAL/RHEUMATOLOGICAL: Denies any joint pain, swelling, or any muscle pain. ENDOCRINE: Denies any polyuria or polydipsia. The rest of the 14-point review of systems is negative. PHYSICAL EXAMINATION: GENERAL: The patient is alert and oriented x3, not in any acute distress. Well developed, well nourished. HEENT: Pupils are round and equally reacting to light. EOMI. No scleral icterus. No conjunctival pallor. Normocephalic, atraumatic. No pharyngeal erythema. No thyromegaly. CARDIOVASCULAR: S1 and S2 present. No murmurs, rubs, or gallops. PULMONARY: Chest is clear to auscultation, no wheezing or crackles. ABDOMEN: Soft, nontender, nondistended,bowel sounds are present. No palpable organomegaly. MUSCULOSKELETAL: No joint swelling or deformity. EXTREMITIES: No cyanosis, clubbing, or pedal edema. NEUROLOGICAL: Gross neurological examination did not reveal any focal deficits. SKIN: No rashes. Assessment and plan -Ileus/partial small bowel obstruction: Can you consider measures IV fluids. Try to avoid opiates as much as possible patient was started on Toradol for pain along with Protonix -Hypertension patient will be resumed and her antidepressant medications patient blood pressure is bit high -Hyperlipidemia -Discussed dysphagia reflux disease -History of breast cancer which was treated in 2006 with surgery radiation therapy and tamoxifen. DVT prophylaxis: Lovenox Past Medical History Past Medical History: Cancer, GERD/Reflux, Hyperlipidemia, Hypertension Additional Past Medical History / Comment(s): 2007-breast cancer with surgery, radiation and Tamoxifen, left kidney and bladder cancer -surgery with chemo and hysterectomy., hx colon polyps., pt has urostomy., states constipation for 3 months, has used suppositories, and enemas, past blood in stool and dark black stools., states pain right abdomen by her stoma. , states abdomen is soft but feels swollen. History of Any Multi-Drug Resistant Organisms: None Reported Past Surgical History: Bladder Surgery, Breast Surgery, Joint Replacement Additional Past Surgical History / Comment(s): 2004 TOTAL RIGHT HIP, 2006 LEFT BREAST LUPECTOMY, 2009 LEFT KIDNEY REMOVED, BLADDER SURGERY WITH UROSTOMY, 2016 TOTAL LEFT HIP. Past Anesthesia/Blood Transfusion Reactions: No Reported Reaction Past Psychological History: No Psychological Hx Reported Smoking Status: Former smoker Past Alcohol Use History: None Reported Additional Past Alcohol Use History / Comment(s): QUIT SMOKING 2004, STARTED AGE 18, 1 PACK EVERY 3 DAYS. Past Drug Use History: None Reported Additional Drug Use History / Comment(s): CBD OIL TOPICAL - Past Family History Mother Family Medical History: No Reported History Medications and Allergies Home Medications Medication Instructions Recorded Confirmed Type Atorvastatin [Lipitor] 20 mg PO TUSA 11/04/21 09/17/22 History Metoprolol Tartrate [Lopressor] 100 mg PO BID 11/04/21 09/17/22 History Verapamil HCl [Verapamil ER] 120 mg PO DAILY 11/04/21 09/17/22 History hydrALAZINE HCL [Apresoline] 10 mg PO BID 11/04/21 09/17/22 History lisinopriL 40 mg PO DAILY 11/04/21 09/17/22 History oxyCODONE HCL/ACETAMINOPHEN 1 tab PO Q4HR PRN 3 Days #18 tab 11/10/21 09/17/22 Rx [Percocet 10-325 mg] Cholecalciferol (Vitamin D3) 75 mcg PO DAILY 11/12/21 09/17/22 History [Vitamin D3 (3000 Iu)] Piroxicam 20 mg PO DAILY 11/12/21 09/17/22 History Morphine Sulfate Ir [MSIR] 15 mg PO BID 08/21/22 09/17/22 History Pramipexole [Mirapex] 0.25 mg PO HS 08/22/22 09/17/22 History Ondansetron Odt [Zofran Odt] 4 mg PO Q8HR PRN #15 tab 08/24/22 09/17/22 Rx polyethylene glycoL 3350 [Miralax] 17 gm PO DAILY PRN 09/09/22 09/17/22 History Sulfamethox-Tmp 800-160Mg [Bactrim 1 tab PO BID 09/17/22 09/17/22 History DS 800-160 mg] Allergies Allergy/AdvReac Type Severity Reaction Status Date / Time codeine Allergy Rash/Hives, Verified 09/17/22 12:14 red all over colesevelam [From WelChol] Allergy Unknown Verified 09/17/22 12:14 duloxetine [From Cymbalta] Allergy Unknown Verified 09/17/22 12:14 latex Allergy positive Verified 09/17/22 12:14 allergy testing nickel Allergy positive Verified 09/17/22 12:14 allergy testing tramadol Allergy Unknown Verified 09/17/22 12:14 valsartan [From Diovan] Allergy Unknown Verified 09/17/22 12:14 zolpidem [From Ambien] Allergy Unknown Verified 09/17/22 12:14 Physical Exam Vitals: Vital Signs Temp Pulse Pulse Resp BP BP Pulse Ox 09/18/22 07:00 98.5 F 108 H 18 170/82 95 09/18/22 01:42 98.7 F 111 H 19 169/91 94 L 09/17/22 21:39 98.5 F 105 H 17 167/91 96 09/17/22 20:00 16 09/17/22 16:45 99.1 F 104 H 16 167/93 97 09/17/22 15:51 98.2 F 101 H 18 165/83 96 09/17/22 14:01 79 18 147/71 96 Intake and Output 09/17/22 09/18/22 09/18/22 22:59 06:59 14:59 Other: Voiding Method Ileal Conduit (Right) # Voids 2 Weight 69.853 kg Results CBC & Chem 7: 09/18/22 06:41 09/18/22 06:41 Labs: Abnormal Lab Results - Last 24 Hours (Table) 09/18/22 09/18/22 Range/Units 06:41 06:41 Lymphocytes # 0.4 L (1.0-4.8) k/uL Creatinine 1.08 H (0.52-1.04) mg/dL Glucose 108 H (74-99) mg/dL Calcium 7.8 L (8.4-10.2) mg/dL
[2022-09-18] MEDS ORDERED: KETOROLAC 15 MG/ML 1 ML VIAL ONE (12:19)
[2022-09-18] MEDS: KETOROLAC 15 MG/ML 1 ML VIAL IVP SCH ×2 (12:27→18:13)
[2022-09-18] MEDS: VERAPAMIL SR 120 MG TABLET.ER PO SCH (12:27)
[2022-09-18] MEDS: METOPROLOL TARTRATE 50 MG TAB PO SCH (20:46)
[2022-09-18] MEDS ORDERED: PRAMIPEXOLE 0.25 MG TAB PO SCH (21:00)
[2022-09-19] MEDS: KETOROLAC 15 MG/ML 1 ML VIAL IVP SCH ×2 (00:02→06:06)
[2022-09-19] MEDS: SODIUM CHLORIDE 0.9% 1,000 ML IV SCH ×3 (06:10→20:24)
[2022-09-19] MEDS: HEPARIN SODIUM,PORCINE/PF 5,000 UNIT/0.5 ML SYRINGE SQ SCH ×2 (08:06→20:21)
[2022-09-19] MEDS: lisinopriL 20 MG TAB PO SCH (08:06)
[2022-09-19] MEDS: VERAPAMIL SR 120 MG TABLET.ER PO SCH (08:07)
[2022-09-19] MEDS: METOPROLOL TARTRATE 50 MG TAB PO SCH ×2 (08:07→20:22)
[2022-09-19] MEDS: PANTOPRAZOLE 40 MG/10 ML VIAL IVP SCH ×2 (08:08→20:22)
[2022-09-19] MEDS ORDERED: VERAPAMIL SR 120 MG TABLET.ER PO SCH (09:00)
[2022-09-19 11:18] LABS: Basophils # (A) 0.01 X 10*3/uL (0.00-0.10); Basophils % (A) 0.1 %; Eosinophils # (A) 0.01 X 10*3/uL (0.04-0.35); Eosinophils % (A) 0.1 %; HCT 34.8 % (37.2-46.3); HGB 10.6 g/dL (12.0-15.0); Immature Grans, Automated 0.6 %; Lymphocytes # (A) 0.59 X 10*3/uL (0.90-5.00); Lymphocytes % (A) 8.8 %; MCH 29.4 pg (27.0-32.0); MCHC 30.5 g/dL (32.0-37.0); MCV 96.7 fL (80.0-97.0); Mean Platelet Volume 11.7 fL (9.5-12.2); Monocytes # (A) 1.05 X 10*3/uL (0.20-1.00); Monocytes % (A) 15.6 %; NRBC Per 100 WBC 0 /100 WBCS (0.0-0.0); Neutrophils # (A) 5.01 X 10*3/uL (1.80-7.70); Neutrophils % (A) 74.8 %; Platelet Count 213 X 10*3/uL (140-440); WBC 6.71 X 10*3/uL (4.50-10.00)
[2022-09-19] MEDS ORDERED: KETOROLAC 15 MG/ML 1 ML VIAL IVP PRN (11:18)
[2022-09-19] MEDS ORDERED: bisacodyL 10 MG SUPP RECTAL STA (11:19)
[2022-09-19] MEDS ORDERED: SODIUM CHLORIDE 0.9% 1,000 ML IV SCH (11:30)
[2022-09-19 12:20] LABS: African American GFR (CKD) 46.1 (60.0-200.0); Anion Gap 9.5 mmol/L (10.00-18.00); BUN/Creat Ratio 14.46 Ratio (12.00-20.00); Blood Urea Nitrogen 18.8 mg/dL (9.0-27.0); Calcium 7.9 mg/dL (8.7-10.3); Carbon Dioxide 20.5 mmol/L (20.0-27.5); Non-African American GFR(CKD) 39.8 (60.0-200.0); Potassium 4.9 mmol/L (3.5-5.5)
[2022-09-19] MEDS ORDERED: traMADol 50 MG TAB PO PRN (13:35)
--- NOTE | 2022-09-19 13:38 | P.PN ---
Subjective 76-year-old female came in with the complaints of for a big abdominal pain epigastric burning sensation nausea vomiting found to have ileus. Patient does have occasional gas patient patient is on opiates at home for cancer pain patient has history of breast cancer status post radiation and chemotherapy with the severe abdominal pain which is chronic. Patient takes Percocets and extended-release morphine along with piroxicam. Patient is passing gas now NG tube was removed. Patient had a recent hospitalization for partial small bowel obstruction at that time. CT of the abdomen and pelvis showed dilation of for small bowel loops in the mid abdomen consistent with the partial small bowel obstruction clear transition point was not evident. 09/19/2022 Patient is feeling better passing gas. Heart rate is better, no urine output, but will increase IV fluids. Patient says Toradol is working better but we need to monitor kidney function with Toradol, kidney function is bit worse today accompanied discontinue Toradol today Constitutional: Denied any fatigue denied any fever. Cardio vascular: denied any chest pain, palpitations Gastrointestinal denied any nausea vomiting Pulmonary: Denied any shortness of breath cough Neurologic denied any new focal deficits All inpatient medications were reviewed and appropriate changes in these medications as dictated in the interval history and assessment and plan. PHYSICAL EXAMINATION: GENERAL: The patient is alert and oriented x3, not in any acute distress. Well developed, well nourished. HEENT: Pupils are round and equally reacting to light. EOMI. No scleral icterus. No conjunctival pallor. Normocephalic, atraumatic. No pharyngeal erythema. No thyromegaly. CARDIOVASCULAR: S1 and S2 present. No murmurs, rubs, or gallops. PULMONARY: Chest is clear to auscultation, no wheezing or crackles. ABDOMEN: Soft, nontender, nondistended,bowel sounds are present. No palpable organomegaly. MUSCULOSKELETAL: No joint swelling or deformity. EXTREMITIES: No cyanosis, clubbing, or pedal edema. NEUROLOGICAL: Gross neurological examination did not reveal any focal deficits. SKIN: No rashes. Assessment and plan -Ileus/partial small bowel obstruction: Ileus is better -Anuria: This can you Toradol monitor kidney function patient creatinine went up hold off on lisinopril as well. Hold off any other nephrotoxic medications. -Hypertension patient will be resumed and her antidepressant medications patient blood pressure is bit high -Hyperlipidemia -Gastroesophageal reflux disease -History of breast cancer which was treated in 2006 with surgery radiation therapy and tamoxifen. DVT prophylaxis: Lovenox Objective - Vital Signs Vital signs: Vital Signs Temp 98.1 F 09/19/22 08:00 Pulse 68 09/19/22 08:00 Resp 16 09/19/22 08:00 BP 152/76 09/19/22 08:00 Pulse Ox 95 09/19/22 08:00 FiO2 Intake & Output 09/18/22 09/19/22 09/19/22 18:59 06:59 18:59 Intake Total 825 Output Total 200 100 0 Balance -200 725 0 Intake: Intake, IV Titration 825 Amount Sodium Chloride 0.9% 1, 825 000 ml @ 75 mls/hr IV . [id number] [facility] Rx#:[id number] Output: Urine 200 100 Post Void Residual 0 Other: Voiding Method Ileal Conduit (Right) - Labs CBC & Chem 7: 09/19/22 07:48 09/19/22 07:48 Labs: Abnormal Lab Results - Last 24 Hours (Table) 09/19/22 09/19/22 Range/Units 07:48 07:48 RBC 3.60 L (4.10-5.20) X 10*6/uL Hgb 10.6 L (12.0-15.0) g/dL Hct 34.8 L (37.2-46.3) % MCHC 30.5 L (32.0-37.0) g/dL RDW 15.0 H (11.5-14.5) % Lymphocytes # 0.59 L (0.90-5.00) X 10*3/uL Monocytes # 1.05 H (0.20-1.00) X 10*3/uL Eosinophils # 0.01 L (0.04-0.35) X 10*3/uL Chloride 110 H (96-109) mmol/L Anion Gap 9.50 L (10.00-18.00) mmol/L Est GFR (CKD-EPI)AfAm 46.1 L (60.0-200.0) Est GFR (CKD-EPI)NonAf 39.8 L (60.0-200.0) Calcium 7.9 L (8.7-10.3) mg/dL
--- NOTE | 2022-09-19 13:53 | P.PN ---
Progress Note - Text Progress Note Date: 09/19/22 Patient feels better. She's had several bowel movements. On exam vital signs are stable. Abdomen soft. Urostomy is functioning. History of partial small bowel structure. Patient will start on clear liquid diet.
[2022-09-19] MEDS: PRAMIPEXOLE 0.25 MG TAB PO SCH (16:33)
[2022-09-19] MEDS ORDERED: ACETAMINOPHEN TAB 325 MG TAB PO PRN (17:20)
[2022-09-19] MEDS: HYDROcodone/APAP 10-325MG 1 EACH TAB PO PRN (17:59)
[2022-09-19] MEDS: MORPHINE SULFATE 4 MG/ML SYRINGE IVP PRN (20:21)
[2022-09-20] MEDS: HYDROcodone/APAP 10-325MG 1 EACH TAB PO PRN (06:12)
[2022-09-20 06:13] LABS: African American GFR (CKD) 62 (>60 ml/min/1.73 sqM); Anion Gap 3 mmol/L; Blood Urea Nitrogen 17 mg/dL (7-17); Calcium 7.7 mg/dL (8.4-10.2); Carbon Dioxide 21 mmol/L (22-30); Chloride 109 mmol/L (98-107); Glucose 70 mg/dL (74-99); Non-African American GFR(CKD) 54 (>60 ml/min/1.73 sqM); Potassium 4.2 mmol/L (3.5-5.1); Sodium 133 mmol/L (137-145)
[2022-09-20] MEDS: SODIUM CHLORIDE 0.9% 1,000 ML IV SCH ×3 (06:14→21:35)
[2022-09-20] MEDS: ONDANSETRON 4 MG/2 ML VIAL IVP PRN ×2 (06:16→11:29)
[2022-09-20] MEDS: PANTOPRAZOLE 40 MG/10 ML VIAL IVP SCH ×2 (09:01→21:29)
[2022-09-20] MEDS: VERAPAMIL SR 120 MG TABLET.ER PO SCH (09:01)
[2022-09-20] MEDS: HEPARIN SODIUM,PORCINE/PF 5,000 UNIT/0.5 ML SYRINGE SQ SCH ×2 (09:01→21:29)
[2022-09-20] MEDS: METOPROLOL TARTRATE 50 MG TAB PO SCH ×2 (09:01→21:29)
--- NOTE | 2022-09-20 11:41 | P.PN ---
Subjective Progress Note Date: 09/20/22 This is a 76-year-old female admitted with ileus/small bowel obstruction status post NG tube, tolerating advancement to clear liquid diet well. Reports loose stools, denies nausea or vomiting. Denies abdominal pain. Toradol discontinued yesterday as well as lisinopril placed on hold. Renal function improving, creatinine 1.02. Objective - Vital Signs Vital signs: Vital Signs Temp 98.0 F 09/20/22 06:55 Pulse 62 09/20/22 06:55 Resp 18 09/20/22 06:55 BP 159/74 09/20/22 06:55 Pulse Ox 92 L 09/20/22 06:55 FiO2 Intake & Output 09/19/22 09/20/22 09/20/22 18:59 06:59 18:59 Intake Total 418 118 Output Total 100 500 Balance 318 -500 118 Intake: Oral 418 118 Output: Urine 100 500 Post Void Residual 0 Other: Voiding Method Ileal Conduit (Right) Ileal Conduit (Right) - Exam GENERAL: Sitting up in bed, alert and oriented x3, NAD HEENT: Pupils are round and equally reacting to light. EOMI. No scleral icterus. No conjunctival pallor. Normocephalic, atraumatic. CARDIOVASCULAR: S1 and S2 present. No murmurs, rubs, or gallops. PULMONARY: Chest is clear to auscultation, no wheezing or crackles. ABDOMEN: Soft, nontender, nondistended,bowel sounds present. No palpable organomegaly. EXTREMITIES: No cyanosis, clubbing, or pedal edema. NEUROLOGICAL: Gross neurological examination did not reveal any focal deficits. SKIN: Warm and dry, No rashes. - Labs CBC & Chem 7: 09/19/22 07:48 09/20/22 05:42 Labs: Abnormal Lab Results - Last 24 Hours (Table) 09/19/22 09/20/22 Range/Units 07:48 05:42 Sodium 133 L (137-145) mmol/L Chloride 110 H 109 H (96-109) mmol/L Carbon Dioxide 21 L (22-30) mmol/L Anion Gap 9.50 L (10.00-18.00) mmol/L Est GFR (CKD-EPI)AfAm 46.1 L (60.0-200.0) Est GFR (CKD-EPI)NonAf 39.8 L (60.0-200.0) Glucose 70 L (74-99) mg/dL Calcium 7.9 L 7.7 L (8.7-10.3) mg/dL Assessment and Plan Assessment: -Ileus/partial small bowel obstruction -Recent acute colitis extending from the cecum to the sigmoid colon with small bowel partial obstruction -Recent acute UTI with E. coli complicated secondary to urostomy -Acute renal failure, improving -History of bladder cancer -Hypertension -Hyperlipidemia -Gastroesophageal reflux disease -History of breast cancer which was treated in 2006 with surgery radiation therapy and tamoxifen, reports in remission. -History of retroperitoneal mass, status post immunotherapy Plan: Continue on current medication regime ,monitoring and symptomatic treatment. Diet advancement as per general surgery. Discharge planning in progress, pending final DC recommendations and clearance as per surgery. The impression and plan of care has been dictated as directed. : I performed a history and examination of this patient, discussed the same with the dictator. I agree with the dictator's note ,documented as a scribe. Any additional findings or plans will be noted.
--- NOTE | 2022-09-20 11:42 | P.PN ---
Subjective Progress Note Date: 09/20/22 CHIEF COMPLAINT: Partial small bowel obstruction HISTORY OF PRESENT ILLNESS: Patient reports improvement in abdominal pain. She did have a formed bowel movement last night and now having diarrhea. She is having flatus. She denies any nausea or vomiting. Urostomy is functioning. Afebrile symptoms 133 potassium 4.2 creatinine 1.02 Patient seen and examined with Dr. nation PHYSICAL EXAM: VITAL SIGNS: Reviewed. GENERAL: Well-developed in no acute distress. HEENT: No sclera icterus. Extraocular movements grossly intact. Moist buccal mucosa. Head is atraumatic, normocephalic. ABDOMEN: Soft. Mildly distended. Nontender. NEUROLOGIC: Alert and oriented. Cranial nerves II through XII grossly intact. ASSESSMENT: 1. Partial small bowel obstruction showing improvement 2. History of multiple abdominal surgeries PLAN: -Continue clear liquid diet -Encourage patient to ambulate -Continue supportive care -Continue IV fluids Physician Metal Bumper note has been reviewed by physician. Signing provider agrees with the documented findings, assessment, and plan of care. Objective - Vital Signs Vital signs: Vital Signs Temp 98.0 F 09/20/22 06:55 Pulse 62 09/20/22 06:55 Resp 18 09/20/22 06:55 BP 159/74 09/20/22 06:55 Pulse Ox 92 L 09/20/22 06:55 FiO2 Intake & Output 09/19/22 09/20/22 09/20/22 18:59 06:59 18:59 Intake Total 418 118 Output Total 100 500 Balance 318 -500 118 Intake: Oral 418 118 Output: Urine 100 500 Post Void Residual 0 Other: Voiding Method Ileal Conduit (Right) Ileal Conduit (Right) - Labs CBC & Chem 7: 09/19/22 07:48 09/20/22 05:42 Labs: Abnormal Lab Results - Last 24 Hours (Table) 09/19/22 09/20/22 Range/Units 07:48 05:42 Sodium 133 L (137-145) mmol/L Chloride 110 H 109 H (96-109) mmol/L Carbon Dioxide 21 L (22-30) mmol/L Anion Gap 9.50 L (10.00-18.00) mmol/L Est GFR (CKD-EPI)AfAm 46.1 L (60.0-200.0) Est GFR (CKD-EPI)NonAf 39.8 L (60.0-200.0) Glucose 70 L (74-99) mg/dL Calcium 7.9 L 7.7 L (8.7-10.3) mg/dL
[2022-09-20] MEDS: IOPAMIDOL CONTRAST (ORAL USE) VIAL PO PRN ×2 (12:48→13:41)
[2022-09-20] MEDS: hydrALAZINE HCL 20 MG/ML 1 ML VIAL IVP PRN (13:42)
--- NOTE | 2022-09-20 14:57 | CT ---
EXAMINATION TYPE: CT abdomen pelvis wo con DATE OF EXAM: 09/20/2022 COMPARISON: 09/17/2022 INDICATION: Follow up partial small bowel obst DLP: 575.1 mGycm, Automated exposure control for dose reduction was used. CONTRAST: 0 mL of Isovue 300. Study performed with Oral Contrast TECHNIQUE: Axial images were obtained from above the diaphragm to the pubic rami in the axial plane a t 5 mm thick sections. Reconstructed images are reviewed on the computer in the coronal plane. FINDINGS: Limited CT sections are obtained the lung bases. Small bilateral pleural effusions are present. Mini mal pericardial effusion is present. Mild coronary artery calcification may be present. CT ABDOMEN: Mild amount of ascites is adjacent to the liver and the spleen. Liver: Normal Spleen: Normal Pancreas: Somewhat atrophic Adrenal glands: The adrenal glands are normal. Gallbladder: Normal Kidneys: No masses are evident. There is some mild right hydronephrosis versus an extrarenal pelvis. There is some prominence of the proximal right ureter however. Mid and distal ureter are not identifi ed. 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 No cysts are present. No renal stones are identified Aorta: Multiple retroperitoneal surgical clips are present. Inferior vena cava: Normal. CT PELVIS: There is limitation in the pelvis due to significant beam hardening artifact bilateral hip prostheses. Small bowel loops distended with oral contrast are prominent. This extends to the mid pelvis. There m ay be a zone of transition within the middle anterior pelvis, example image series 3 image 53. Small bowel loops at this level have a diffusely thickened wall. There may be some contrast beyond this lev el of stenosis with more normal caliber small bowel. Contrast does not extend to the ostomy. Right lo wer quadrant bowel surgery site is identified. This appears to be proximal to the zone of transition without obvious obstruction. Appendix: Not identified. Urinary bladder: Nondiagnostic Genitourinary structures: Uterus and ovaries are not identified. Osseous structures: No suspicious lytic or sclerotic lesions. Facet changes within the lumbar spine. Some degenerative disc changes are present IMPRESSIONS: 1. Distal anterior lower mid pelvis small bowel loops with thickened wall which are a zone of transi tion from the dilated jejunum can be the location of the small bowel obstruction. Contrast does pass through this region with more normal caliber ileum.
[2022-09-20] MEDS: hydrALAZINE HCL 25 MG TAB PO SCH ×2 (17:22→21:29)
[2022-09-20] MEDS: PRAMIPEXOLE 0.25 MG TAB PO SCH (17:22)
[2022-09-21] MEDS: SODIUM CHLORIDE 0.9% 1,000 ML IV SCH (01:48)
[2022-09-21] MEDS: PANTOPRAZOLE 40 MG/10 ML VIAL IVP SCH ×2 (08:10→20:33)
[2022-09-21] MEDS: hydrALAZINE HCL 25 MG TAB PO SCH ×4 (08:24→23:09)
[2022-09-21] MEDS: HEPARIN SODIUM,PORCINE/PF 5,000 UNIT/0.5 ML SYRINGE SQ SCH ×2 (08:24→20:33)
[2022-09-21] MEDS: METOPROLOL TARTRATE 50 MG TAB PO SCH ×2 (08:25→20:33)
[2022-09-21] MEDS: VERAPAMIL SR 120 MG TABLET.ER PO SCH (08:25)
[2022-09-21] MEDS: HYDROcodone/APAP 10-325MG 1 EACH TAB PO PRN ×2 (08:25→18:10)
[2022-09-21 10:16] LABS: HCT 37.7 % (37.2-46.3); HGB 11.8 g/dL (12.0-15.0); MCH 29.6 pg (27.0-32.0); MCHC 31.3 g/dL (32.0-37.0); MCV 94.5 fL (80.0-97.0); NRBC Per 100 WBC 0 /100 WBCS (0.0-0.0); Platelet Count 225 X 10*3/uL (140-440); RBC 3.99 X 10*6/uL (4.10-5.20); RDW 14.6 % (11.5-14.5); WBC 4.98 X 10*3/uL (4.50-10.00)
[2022-09-21 10:25] LABS: Blood Urea Nitrogen 9.9 mg/dL (9.0-27.0); Calcium 8.3 mg/dL (8.7-10.3); Non-African American GFR(CKD) 62.1 (60.0-200.0)
[2022-09-21] MEDS: LACTOBACILLUS ACIDOPH & BULGAR 1 EACH PACKET PO SCH (10:46)
[2022-09-21] MEDS: SIMETHICONE 80 MG CHEWABLE PO SCH ×4 (10:46→23:09)
[2022-09-21] MEDS: ATORVASTATIN 20 MG TAB PO SCH (11:00)
--- NOTE | 2022-09-21 12:34 | P.PN ---
Subjective Progress Note Date: 09/21/22 CHIEF COMPLAINT: Partial small bowel obstruction HISTORY OF PRESENT ILLNESS: The patient did complain of some mid abdominal pain earlier today. Pain is improving. She denies any nausea or vomiting. Her stools are more formed but small. Computed tomography scan abdomen and pelvis with oral contrast showing the distal anterior lower and mid pelvis small bowel loops with thickened wall zone of transition from the dilated jejunum. Contrast does passed through the region with more normal caliber ileum. Afebrile. WBC is 4.98 hemoglobin is 11.8 platelets are 225 sodium 138 potassium is 4.0 creatinine 0.9. Patient tolerating a full liquid diet Patient seen and examined with Dr. nation PHYSICAL EXAM: VITAL SIGNS: Reviewed. GENERAL: Well-developed in no acute distress. HEENT: No sclera icterus. Extraocular movements grossly intact. Moist buccal mucosa. Head is atraumatic, normocephalic. ABDOMEN: Soft. Nondistended Nontender. NEUROLOGIC: Alert and oriented. Cranial nerves II through XII grossly intact. ASSESSMENT: 1. Partial small bowel obstruction 2. History of multiple abdominal surgeries PLAN: -Advance diet to regular -Hep-Lock IV -We'll continue to monitor patient. If she tolerates diet anticipate discharge tomorrow with follow-up in the office -Encourage patient to ambulate Physician Systems Protection Technician note has been reviewed by physician. Signing provider agrees with the documented findings, assessment, and plan of care. Objective - Vital Signs Vital signs: Vital Signs Temp 98.4 F 09/21/22 06:51 Pulse 76 09/21/22 06:51 Resp 18 09/21/22 09:28 BP 154/101 09/21/22 08:53 Pulse Ox 97 09/21/22 01:36 FiO2 Intake & Output 09/20/22 09/21/22 09/21/22 18:59 06:59 18:59 Intake Total 478 Output Total 3000 Balance -2522 Intake: Oral 478 Output: Urine 3000 Other: Voiding Method Ileal Conduit (Right) Ileal Conduit (Right) Ileal Conduit (Left) # Voids 3 # Bowel Movements 6 3 - Labs CBC & Chem 7: 09/21/22 07:03 09/21/22 07:03 Labs: Abnormal Lab Results - Last 24 Hours (Table) 09/21/22 09/21/22 Range/Units 07:03 07:03 RBC 3.99 L (4.10-5.20) X 10*6/uL Hgb 11.8 L (12.0-15.0) g/dL MCHC 31.3 L (32.0-37.0) g/dL RDW 14.6 H (11.5-14.5) % Carbon Dioxide 18.0 L (20.0-27.5) mmol/L BUN/Creatinine Ratio 11.00 L (12.00-20.00) Ratio Calcium 8.3 L (8.7-10.3) mg/dL
--- NOTE | 2022-09-21 13:27 | P.PN ---
Subjective Progress Note Date: 09/21/22 This is a 76-year-old female admitted with ileus/small bowel obstruction status post NG tube, tolerating advancement to clear liquid diet well. Reports loose stools, denies nausea or vomiting. Denies abdominal pain. Toradol discontinued yesterday as well as lisinopril placed on hold. Renal function improving, creatinine 1.02. 09/21/2022 significant clinical improvement. Eating breakfast, tolerating full liquids, denies nausea vomiting. Reports diarrhea but has been unable to pass flatus. Complains of mid epigastric bloating. Denies abdominal pain. Afebrile, normal WBC. CT better and pelvis repeated yesterday, reporting distal anterior lower mid pelvis small bowel loops with thickened wall zone of transition from the dilated jejunum with contrast passing through this region with more normal caliber ileum. Renal function stable. Objective - Vital Signs Vital signs: Vital Signs Temp 98.4 F 09/21/22 06:51 Pulse 76 09/21/22 06:51 Resp 18 09/21/22 09:28 BP 154/101 09/21/22 08:53 Pulse Ox 97 09/21/22 01:36 FiO2 Intake & Output 09/20/22 09/21/22 09/21/22 18:59 06:59 18:59 Intake Total 478 Output Total 3000 Balance -2522 Intake: Oral 478 Output: Urine 3000 Other: Voiding Method Ileal Conduit (Right) Ileal Conduit (Right) Ileal Conduit (Left) # Voids 3 # Bowel Movements 6 3 - Exam GENERAL: Sitting up in bed, alert and oriented x3, NAD CARDIOVASCULAR: S1 and S2 present. No murmurs, rubs, or gallops. PULMONARY: Chest is clear to auscultation, no wheezing or crackles. ABDOMEN: Soft, nontender, nondistended,bowel sounds present. No palpable organomegaly. EXTREMITIES: No cyanosis, clubbing, or pedal edema. NEUROLOGICAL: Gross neurological examination did not reveal any focal deficits. SKIN: Warm and dry, No rashes. - Labs CBC & Chem 7: 09/21/22 07:03 09/21/22 07:03 Labs: Abnormal Lab Results - Last 24 Hours (Table) 09/21/22 09/21/22 Range/Units 07:03 07:03 RBC 3.99 L (4.10-5.20) X 10*6/uL Hgb 11.8 L (12.0-15.0) g/dL MCHC 31.3 L (32.0-37.0) g/dL RDW 14.6 H (11.5-14.5) % Carbon Dioxide 18.0 L (20.0-27.5) mmol/L BUN/Creatinine Ratio 11.00 L (12.00-20.00) Ratio Calcium 8.3 L (8.7-10.3) mg/dL Assessment and Plan Assessment: -Ileus/partial small bowel obstruction -Recent acute colitis extending from the cecum to the sigmoid colon with small bowel partial obstruction -Recent acute UTI with E. coli complicated secondary to urostomy -Acute renal failure, improving -History of bladder cancer -Hypertension -Hyperlipidemia -Gastroesophageal reflux disease -History of breast cancer which was treated in 2006 with surgery radiation therapy and tamoxifen, reports in remission. -History of retroperitoneal mass, status post immunotherapy Plan: Continue on current medication regime ,monitoring and symptomatic treatment. Diet advancement as per general surgery. Medically cleared for discharge. Recommending lactobacillus, Gas-X ,continue on MiraLAX, PPI. Follow up with PCP, Dr. Solomon Thomas in one week. Also discussed assisting patient with obtaining authorization for Amitiza in clinic, given her chronic opioid use. The impression and plan of care has been dictated as directed. : I performed a history and examination of this patient, discussed the same with the dictator. I agree with the dictator's note ,documented as a scribe. Any additional findings or plans will be noted.
[2022-09-21] MEDS: PRAMIPEXOLE 0.25 MG TAB PO SCH (18:07)
[2022-09-22] MEDS: HYDROcodone/APAP 10-325MG 1 EACH TAB PO PRN ×3 (06:50→21:14)
[2022-09-22] MEDS: ONDANSETRON 4 MG/2 ML VIAL IVP PRN ×2 (07:44→13:34)
[2022-09-22] MEDS: METOPROLOL TARTRATE 50 MG TAB PO SCH ×2 (08:20→21:13)
[2022-09-22] MEDS: hydrALAZINE HCL 25 MG TAB PO SCH (08:20)
[2022-09-22] MEDS: LACTOBACILLUS ACIDOPH & BULGAR 1 EACH PACKET PO SCH (08:21)
[2022-09-22] MEDS: HEPARIN SODIUM,PORCINE/PF 5,000 UNIT/0.5 ML SYRINGE SQ SCH ×2 (08:25→21:17)
[2022-09-22] MEDS: VERAPAMIL SR 120 MG TABLET.ER PO SCH (09:06)
[2022-09-22] MEDS: SIMETHICONE 80 MG CHEWABLE PO SCH ×4 (09:06→21:16)
[2022-09-22] MEDS: PANTOPRAZOLE 40 MG/10 ML VIAL IVP SCH ×2 (09:07→21:16)
[2022-09-22] MEDS: hydrALAZINE HCL 50 MG TAB PO SCH ×3 (13:33→21:14)
--- NOTE | 2022-09-22 14:25 | P.PN ---
Subjective Progress Note Date: 09/22/22 This is a 76-year-old female admitted with ileus/small bowel obstruction status post NG tube, tolerating advancement to clear liquid diet well. Reports loose stools, denies nausea or vomiting. Denies abdominal pain. Toradol discontinued yesterday as well as lisinopril placed on hold. Renal function improving, creatinine 1.02. 09/21/2022 significant clinical improvement. Eating breakfast, tolerating full liquids, denies nausea vomiting. Reports diarrhea but has been unable to pass flatus. Complains of mid epigastric bloating. Denies abdominal pain. Afebrile, normal WBC. CT better and pelvis repeated yesterday, reporting distal anterior lower mid pelvis small bowel loops with thickened wall zone of transition from the dilated jejunum with contrast passing through this region with more normal caliber ileum. Renal function stable. 09/22/2022 reporting frustration over her chronic diarrhea, that accompanies her oral intake ,which patient states has been going on since September 2021. Denies nausea or vomiting. Denies abdominal pain. Hypertensive, she attributes to her frustration and stress over her diarrhea this morning. Objective - Vital Signs Vital signs: Vital Signs Temp 98.3 F 09/22/22 06:45 Pulse 74 09/22/22 09:23 Resp 16 09/22/22 06:45 BP 171/85 09/22/22 09:23 Pulse Ox 97 09/22/22 06:45 FiO2 Intake & Output 09/21/22 09/22/22 09/22/22 18:59 06:59 18:59 Intake Total 100 Output Total 1200 1400 1000 Balance -1100 -1400 -1000 Intake: Oral 100 Output: Urine 1200 1400 1000 Other: Voiding Method Ileal Conduit (Left) Ileal Conduit (Left) # Voids 1 - Exam GENERAL: Sitting up in bed, alert and oriented x3, teary-eyed, mildly agitated CARDIOVASCULAR: S1 and S2 present. No murmurs, rubs, or gallops. PULMONARY: Chest is clear to auscultation, no wheezing or crackles. ABDOMEN: Soft, nontender, nondistended,bowel sounds present. No palpable organomegaly. EXTREMITIES: No cyanosis, clubbing, or pedal edema. NEUROLOGICAL: Gross neurological examination did not reveal any focal deficits. SKIN: Warm and dry, No rashes. - Labs CBC & Chem 7: 09/21/22 07:03 09/21/22 07:03 Assessment and Plan Assessment: -Ileus/partial small bowel obstruction -Chronic diarrhea 1 year -Recent acute colitis extending from the cecum to the sigmoid colon with small bowel partial obstruction -Recent acute UTI with E. coli complicated secondary to urostomy -Acute renal failure, improving -History of bladder cancer -Hypertension -Hyperlipidemia -Gastroesophageal reflux disease -History of breast cancer which was treated in 2006 with surgery radiation therapy and tamoxifen, reports in remission. -History of retroperitoneal mass, status post immunotherapy Plan: Continue on current medication regime ,monitoring and symptomatic treatment. Increase hydralazine dose .Scheduled for colonoscopy tomorrow with g eneral surgery. Reinforced fiber, probiotics. Also discussed fecal transplant option at a tertiary care center. Continue on lactobacillus, Gas-X, MiraLAX, PPI. The impression and plan of care has been dictated as directed. : I performed a history and examination of this patient, discussed the same with the dictator. I agree with the dictator's note ,documented as a scribe. Any additional findings or plans will be noted.
[2022-09-22] MEDS ORDERED: PEG 3350 (236 GM/BTL) + LYTES 4,000 ML BOTTLE PO ONE (14:41)
--- NOTE | 2022-09-22 15:41 | P.PN ---
Subjective Progress Note Date: 09/22/22 CHIEF COMPLAINT: Partial small bowel obstruction HISTORY OF PRESENT ILLNESS: Patient complaining of diarrhea. She reports that she's had for watery stools. She has more diarrhea after eating. She is having flatus. She did report nausea and mid abdominal pain because she went to along without her pain medication. Afebrile patient did have elevated blood pressure. Now better and being monitored by medicine service. Patient seen and examined with Dr. nation PHYSICAL EXAM: VITAL SIGNS: Reviewed. GENERAL: Well-developed in no acute distress. HEENT: No sclera icterus. Extraocular movements grossly intact. Moist buccal mucosa. Head is atraumatic, normocephalic. ABDOMEN: Soft. Nondistended NEUROLOGIC: Alert and oriented. Cranial nerves II through XII grossly intact. ASSESSMENT: 1. Partial small bowel obstruction improving 2. Diarrhea 3. History of multiple abdominal surgeries PLAN: -Patient scheduled for colonoscopy tomorrow with Dr. natino -Start GoLYTELY prep today -Nothing by mouth after midnight -Check stool for C. diff. If positive nursing staff has been notified to contact Dr. nation. Physician Permit Technician note has been reviewed by physician. Signing provider agrees with the documented findings, assessment, and plan of care. Objective - Vital Signs Vital signs: Vital Signs Temp 97.9 F 09/22/22 15:15 Pulse 67 09/22/22 15:15 Resp 18 09/22/22 15:15 BP 149/76 09/22/22 15:15 Pulse Ox 95 09/22/22 15:15 FiO2 Intake & Output 09/21/22 09/22/22 09/22/22 18:59 06:59 18:59 Intake Total 100 180 Output Total 1200 1400 1540 Balance -1100 -1400 -1360 Intake: Oral 100 180 Output: Urine 1200 1400 1540 Other: Voiding Method Ileal Conduit (Left) Ileal Conduit (Left) # Voids 1 - Labs CBC & Chem 7: 09/21/22 07:03 09/21/22 07:03
--- NOTE | 2022-09-22 17:40 | XR ---
EXAMINATION TYPE: XR Hip Bilateral and AP pelvis DATE OF EXAM: 09/22/2022 5:35 PM INDICATION: Patient age:Female; 76 years old; Reason for study: fall; COMPARISON: None TECHNIQUE: Bilateral hips were examined in the frontal and lateral projections and a AP pelvis. FINDINGS: Bilateral hip arthroplasty changes are present. Hardware appears in tact. No evidence appea r a prosthetic lucency or periprosthetic fracture. Surgical clips are seen throughout the pelvis. Mul tilevel disc degeneration changes throughout the spine. No evidence for acute process, joint dislocat ion or significant soft tissue swelling. IMPRESSION: 1. No acute process. 2. Bilateral hip arthroplasties with hardware appearing intact and appropriate position.
--- NOTE | 2022-09-22 18:14 | XR ---
EXAMINATION TYPE: XR lumbar spine 2 or 3V DATE OF EXAM: 09/22/2022 5:45 PM INDICATION: Patient age:Female; 76 years old; Reason for study: fall; COMPARISON: 03/10/2010 CT abdomen pelvis 09/20/2022 PET/CT T10 1422 TECHNIQUE: Frontal, lateral , bilateral oblique and coned in L5-S1 lateral views of the spine. FINDINGS: Multilevel disc changes throughout the spine mild retrolisthesis at L2-L3 and L1-L2. Grade 2 anterolisthesis of L5 on S1. No evidence of any acute osseous pathology. No evidence of loss of vertebral body height is see. En dplate osteophytes are present with facet joint arthropathy arthropathy. Multiple surgical clips are seen projecting over the mid abdomen and pelvis. Partially visualized left hip arthroplasty. IMPRESSION: 1. Multilevel disc changes throughout the spine mild retrolisthesis at L2-L3 and L1-L2. 2. Grade 2 anterolisthesis of L5 on S1.
[2022-09-22] MEDS: PRAMIPEXOLE 0.25 MG TAB PO SCH (18:38)
[2022-09-23 05:43] LABS: African American GFR (CKD) 80 (>60 ml/min/1.73 sqM); Anion Gap 7 mmol/L; Blood Urea Nitrogen 8 mg/dL (7-17); Calcium 8.2 mg/dL (8.4-10.2); Carbon Dioxide 20 mmol/L (22-30); Chloride 107 mmol/L (98-107); Glucose 79 mg/dL (74-99); Non-African American GFR(CKD) 69 (>60 ml/min/1.73 sqM); Potassium 3.5 mmol/L (3.5-5.1); Sodium 134 mmol/L (137-145)
[2022-09-23 06:19] LABS: Basophils % (A) 0 %; Eosinophils # (A) 0.1 k/uL (0-0.7); Eosinophils % (A) 1 %; HCT 35.4 % (34.0-46.0); Lymphocytes # (A) 0.6 k/uL (1.0-4.8); Lymphocytes % (A) 13 %; MCH 31.3 pg (25.0-35.0); MCHC 33.8 g/dL (31.0-37.0); MCV 92.5 fL (80.0-100.0); Mean Platelet Volume 10.4; Monocytes # (A) 0.7 k/uL (0-1.0); Monocytes % (A) 15 %; Neutrophils # (A) 3.3 k/uL (1.3-7.7); Neutrophils % (A) 70 %; RBC 3.82 m/uL (3.80-5.40); RDW 14.2 % (11.5-15.5); WBC 4.8 k/uL (3.8-10.6)
[2022-09-23 06:59] LABS: Platelet Count 38 k/uL (150-450)
[2022-09-23] MEDS: HEPARIN SODIUM,PORCINE/PF 5,000 UNIT/0.5 ML SYRINGE SQ SCH ×2 (09:19→21:36)
[2022-09-23] MEDS: ONDANSETRON 4 MG/2 ML VIAL IVP PRN (09:20)
[2022-09-23] MEDS: PANTOPRAZOLE 40 MG/10 ML VIAL IVP SCH ×2 (09:22→21:34)
[2022-09-23] MEDS: hydrALAZINE HCL 50 MG TAB PO SCH ×4 (10:06→21:37)
[2022-09-23] MEDS: VERAPAMIL SR 120 MG TABLET.ER PO SCH (10:07)
[2022-09-23] MEDS: METOPROLOL TARTRATE 50 MG TAB PO SCH ×2 (10:07→21:37)
[2022-09-23] MEDS: HYDROcodone/APAP 10-325MG 1 EACH TAB PO PRN (10:21)
[2022-09-23] MEDS: SIMETHICONE 80 MG CHEWABLE PO SCH ×4 (10:25→21:37)
[2022-09-23] MEDS: LACTOBACILLUS ACIDOPH & BULGAR 1 EACH PACKET PO SCH (10:28)
[2022-09-23] MEDS ORDERED: IV FLUID CONTINUATION 1,000 ML IV ONE ×2 (11:45)
[2022-09-23] MEDS ORDERED: PROPOFOL 10 MG/ML 20 ML VIAL IV ONE (11:46)
--- NOTE | 2022-09-23 12:10 | P.OP ---
Date of Procedure: 09/23/22 Preoperative Diagnosis: Diarrhea Postoperative Diagnosis: Possible rectal inflammation pathology pending Procedure(s) Performed: Colonoscopy Anesthesia: MAC Surgeon: Juni Roa Pathology: other (Rectum) Condition: stable Disposition: PACU Description of Procedure: The patient's placed on the endoscopy table in the lateral position. She received IV sedation. Digital rectal exam was performed. This revealed no ebonized. Flexible scope was then placed patient anus and the scope was advanced through the colon. The scope passed in the sigmoid colon due to tortuosity colon. This point scope withdrawn. Next the pediatric scope was placed patient anus and passed throughout the colon. Once again scope passed in the sigmoid colon secondary to tortuosity valve. Several attempts were made to maneuver the colonoscope hours some possible. In order to prevent damage the colon was decided to withdraw the scope. Rectum was visualized. Normal. A biopsies rectal was performed due to the patient's symptoms of diarrhea. Scope was withdrawn for patient.
--- NOTE | 2022-09-23 12:17 | P.PN ---
Subjective Progress Note Date: 09/23/22 This is a 76-year-old female admitted with ileus/small bowel obstruction status post NG tube, tolerating advancement to clear liquid diet well. Reports loose stools, denies nausea or vomiting. Denies abdominal pain. Toradol discontinued yesterday as well as lisinopril placed on hold. Renal function improving, creatinine 1.02. 09/21/2022 significant clinical improvement. Eating breakfast, tolerating full liquids, denies nausea vomiting. Reports diarrhea but has been unable to pass flatus. Complains of mid epigastric bloating. Denies abdominal pain. Afebrile, normal WBC. CT better and pelvis repeated yesterday, reporting distal anterior lower mid pelvis small bowel loops with thickened wall zone of transition from the dilated jejunum with contrast passing through this region with more normal caliber ileum. Renal function stable. 09/22/2022 reporting frustration over her chronic diarrhea, that accompanies her oral intake ,which patient states has been going on since September 2021. Denies nausea or vomiting. Denies abdominal pain. Hypertensive, she attributes to her frustration and stress over her diarrhea this morning. 09/23/2022 nothing by mouth, scheduled for colonoscopy this morning. Positive nausea, receiving Zofran, improved. Denies vomiting or abdominal pain. Denies chest pain, palpitations or shortness of breath. Hypertensive, administration of hydralazine pending. Objective - Vital Signs Vital signs: Vital Signs Temp 98.0 F 09/23/22 08:45 Pulse 68 09/23/22 10:00 Resp 18 09/23/22 08:45 BP 184/90 09/23/22 10:00 Pulse Ox 96 09/23/22 00:42 FiO2 Intake & Output 09/22/22 09/23/22 09/23/22 18:59 06:59 18:59 Intake Total 180 Output Total 1890 Balance -1710 Intake: Oral 180 Output: Urine 1890 Other: # Voids 5 # Bowel Movements 7 - Exam GENERAL: Sitting up in bed, alert and oriented x3 CARDIOVASCULAR: S1 and S2 present. No murmurs, rubs, or gallops. PULMONARY: Chest is clear to auscultation, no wheezing or crackles. ABDOMEN: Soft,nondistended, left lower quadrant tenderness ,bowel sounds present. No palpable organomegaly. EXTREMITIES: No cyanosis, clubbing, or pedal edema. NEUROLOGICAL:Gross neurological examination did not reveal any focal deficits. SKIN: Warm and dry, No rashes. - Labs CBC & Chem 7: 09/23/22 05:38 09/23/22 05:02 Labs: Abnormal Lab Results - Last 24 Hours (Table) 09/23/22 09/23/22 Range/Units 05:02 05:38 Plt Count 38 L D (150-450) k/uL Lymphocytes # 0.6 L (1.0-4.8) k/uL Sodium 134 L (137-145) mmol/L Carbon Dioxide 20 L (22-30) mmol/L Calcium 8.2 L (8.4-10.2) mg/dL Assessment and Plan Assessment: -Ileus/partial small bowel obstruction -Chronic diarrhea 1 year -Recent acute colitis extending from the cecum to the sigmoid colon with small bowel partial obstruction -Recent acute UTI with E. coli complicated secondary to urostomy -Acute renal failure, improving -History of bladder cancer -Hypertension -Hyperlipidemia -Gastroesophageal reflux disease -History of breast cancer which was treated in 2006 with surgery radiation therapy and tamoxifen, reports in remission. -History of retroperitoneal mass, status post immunotherapy Plan: Continue on current medication regime ,monitoring and symptomatic treatment. Med regimen of lactobacillus, Gas-X, MiraLAX, PPI and discussed further, preventing fecal impaction in a patient with constipation with overflow diarrhea.NPO,Colonoscopy pending. The impression and plan of care has been dictated as directed. : I performed a history and examination of this patient, discussed the same with the dictator. I agree with the dictator's note ,documented as a scribe. Any additional findings or plans will be noted.
[2022-09-23 12:29] LABS: HCT 36.9 % (34.0-46.0); HGB 11.9 gm/dL (11.4-16.0); Hypochromasia Slight; MCH 30.9 pg (25.0-35.0); MCHC 32.4 g/dL (31.0-37.0); MCV 95.5 fL (80.0-100.0); Mean Platelet Volume 10.7; RBC 3.86 m/uL (3.80-5.40); RDW 14.5 % (11.5-15.5); WBC 5.1 k/uL (3.8-10.6)
[2022-09-23 12:36] LABS: Platelet Count 199 k/uL (150-450)
[2022-09-23 13:39] VITALS: BMI 26.4
[2022-09-23] MEDS: PRAMIPEXOLE 0.25 MG TAB PO SCH (18:46)
[2022-09-24] MEDS: HYDROcodone/APAP 10-325MG 1 EACH TAB PO PRN (03:52)
[2022-09-24 04:33] VITALS: RESP 18
[2022-09-24 07:10] VITALS: TEMP 98.4
[2022-09-24 08:45] VITALS: BP 160/80; PULSE 80
[2022-09-24] MEDS: hydrALAZINE HCL 50 MG TAB PO SCH (08:46)
[2022-09-24] MEDS: METOPROLOL TARTRATE 50 MG TAB PO SCH (08:47)
[2022-09-24] MEDS: LACTOBACILLUS ACIDOPH & BULGAR 1 EACH PACKET PO SCH (08:47)
[2022-09-24] MEDS: VERAPAMIL SR 120 MG TABLET.ER PO SCH (08:48)
[2022-09-24] MEDS: SIMETHICONE 80 MG CHEWABLE PO SCH (08:50)
[2022-09-24] MEDS: HEPARIN SODIUM,PORCINE/PF 5,000 UNIT/0.5 ML SYRINGE SQ SCH (09:00)
[2022-09-24] MEDS: PANTOPRAZOLE 40 MG/10 ML VIAL IVP SCH (09:02)
--- NOTE | 2022-09-24 11:17 | P.DS ---
Providers Date of admission: 09/17/22 11:48 Expected date of discharge: 09/24/22 Attending physician: Juni Roa Consults: 09/17/22 13:45 Consult Physician Routine Consulting Provider: Solomon Thomas Consult Reason/Comments: medical management Do you want consulting provider notified?: Already Contacted Primary care physician: Solomon Thomas MD Hospital Course: Discharge diagnosis 1. Partial small bowel obstruction vs ileus resolved. Managed conservatively 2. Diarrhea 3. History of multiple abdominal surgeries Hospital course This is a 76-year-old female with history of breast cancer status post surgery, radiation and chemo, bladder cancer with cystectomy and urostomy, left kidney cancer status post nephrectomy and hysterectomy. Patient presents to emergency room with complaints of abdominal pain in the upper abdomen with nausea and vomiting. Patient also having diarrhea. She had a computed tomography scan abdomen and pelvis showing new dilation of small bowel loops in the mid abdomen correlate for ileus, partial versus early complete bowel obstruction. Patient did have NG tube placed for decompression. Patient started to have more flatus and stools. NG tube discontinued. Diet was advanced. Patient currently tolerating diet. Abdominal pain is improved. Her diarrhea has also improved. During hospitalization she did have a colonoscopy completed this shows possible rectal inflammation. Biopsies were obtained. Patient is tolerating diet. Her pain is controlled. She is afebrile. She's up and ambulating. She is stable for discharge. Please refer to chart for details. Physician Medical Scribe note has been reviewed by physician. Signing provider agrees with the documented findings, assessment, and plan of care. Patient Condition at Discharge: Stable Plan - Discharge Summary Discharge Rx Participant: No New Discharge Prescriptions: New Simethicone [Gas-X] 125 mg PO TID PRN #1 capsule PRN Reason: Bloating Pantoprazole Sodium [Protonix] 40 mg PO DAILY #30 tab Lactobacillus Acidoph & Bulgar [Lactinex] 1 each PO DAILY packet Continue Verapamil HCl [Verapamil ER] 120 mg PO DAILY lisinopriL 40 mg PO DAILY oxyCODONE HCL/ACETAMINOPHEN [Percocet 10-325 mg] 1 tab PO Q4HR PRN 3 Days #18 tab PRN Reason: Pain Morphine Sulfate Ir [MSIR] 15 mg PO BID Pramipexole [Mirapex] 0.25 mg PO HS Ondansetron Odt [Zofran ODT] 4 mg PO Q8HR PRN #15 tab PRN Reason: Nausea polyethylene glycoL 3350 [Miralax] 17 gm PO DAILY PRN PRN Reason: Constipation hydrALAZINE HCL [Apresoline] 10 mg PO BID Atorvastatin [Lipitor] 20 mg PO TUSA Metoprolol Tartrate [Lopressor] 100 mg PO BID Cholecalciferol (Vitamin D3) [Vitamin D3 (3000 Iu)] 75 mcg PO DAILY Piroxicam 20 mg PO DAILY Discontinued Sulfamethox-Tmp 800-160Mg [Bactrim DS 800-160 mg] 1 tab PO BID Discharge Medication List Atorvastatin [Lipitor] 20 mg PO TUSA 11/04/21 [History] Metoprolol Tartrate [Lopressor] 100 mg PO BID 11/04/21 [History] Verapamil HCl [Verapamil ER] 120 mg PO DAILY 11/04/21 [History] hydrALAZINE HCL [Apresoline] 10 mg PO BID 11/04/21 [History] lisinopriL 40 mg PO DAILY 11/04/21 [History] oxyCODONE HCL/ACETAMINOPHEN [Percocet 10-325 mg] 1 tab PO Q4HR PRN 3 Days #18 tab 11/10/21 [Rx] Cholecalciferol (Vitamin D3) [Vitamin D3 (3000 Iu)] 75 mcg PO DAILY 11/12/21 [History] Piroxicam 20 mg PO DAILY 11/12/21 [History] Morphine Sulfate Ir [MSIR] 15 mg PO BID 08/21/22 [History] Pramipexole [Mirapex] 0.25 mg PO HS 08/22/22 [History] Ondansetron Odt [Zofran ODT] 4 mg PO Q8HR PRN #15 tab 08/24/22 [Rx] polyethylene glycoL 3350 [Miralax] 17 gm PO DAILY PRN 09/09/22 [History] Lactobacillus Acidoph & Bulgar [Lactinex] 1 each PO DAILY packet 09/21/22 [Rx] Pantoprazole Sodium [Protonix] 40 mg PO DAILY #30 tab 09/21/22 [Rx] Simethicone [Gas-X] 125 mg PO TID PRN #1 capsule 09/21/22 [Rx] Follow up Appointment(s)/Referral(s): Solomon Thomas MD [Primary Care Provider] - 1 Week [facility] [NON-STAFF] - 1 Week Juni Roa MD [STAFF PHYSICIAN] - 1 Week Ambulatory/Diagnostic Orders: Basic Metabolic Panel [LAB.AMB] Time Frame: 3 Days, Location: None Selected Discharge Disposition: HOME SELF-CARE
--- NOTE | 2022-09-24 14:41 | P.PN ---
Subjective Progress Note Date: 09/24/22 This is a 76-year-old female admitted with ileus/small bowel obstruction status post NG tube, tolerating advancement to clear liquid diet well. Reports loose stools, denies nausea or vomiting. Denies abdominal pain. Toradol discontinued yesterday as well as lisinopril placed on hold. Renal function improving, creatinine 1.02. 09/21/2022 significant clinical improvement. Eating breakfast, tolerating full liquids, denies nausea vomiting. Reports diarrhea but has been unable to pass flatus. Complains of mid epigastric bloating. Denies abdominal pain. Afebrile, normal WBC. CT better and pelvis repeated yesterday, reporting distal anterior lower mid pelvis small bowel loops with thickened wall zone of transition from the dilated jejunum with contrast passing through this region with more normal caliber ileum. Renal function stable. 09/22/2022 reporting frustration over her chronic diarrhea, that accompanies her oral intake ,which patient states has been going on since September 2021. Denies nausea or vomiting. Denies abdominal pain. Hypertensive, she attributes to her frustration and stress over her diarrhea this morning. 09/23/2022 nothing by mouth, scheduled for colonoscopy this morning. Positive nausea, receiving Zofran, improved. Denies vomiting or abdominal pain. Denies chest pain, palpitations or shortness of breath. Hypertensive, administration of hydralazine pending. 09/24/2022 underwent colonoscopy yesterday reporting rectal inflammation with biopsies obtained. Tolerated procedure well. Denies nausea vomiting, tolerating diet. Denies abdominal pain. Reporting less diarrhea this morning chronic back pain. Denies chest pain, palpitations or shortness of breath. Even for discharge. Objective - Vital Signs Vital signs: Vital Signs Temp 98.4 F 09/24/22 07:08 Pulse 80 09/24/22 08:45 Resp 18 09/24/22 07:08 BP 160/80 09/24/22 08:45 Pulse Ox 95 09/24/22 07:08 FiO2 Intake & Output 09/23/22 09/24/22 09/24/22 18:59 06:59 18:59 Intake Total 100 Output Total 600 Balance -500 Weight 69.853 kg Intake: IV 100 Output: Urine 600 Other: Voiding Method Ileal Conduit (Right) # Voids 4 # Bowel Movements 2 - Exam GENERAL: Sitting up in bed, alert and oriented x3 CARDIOVASCULAR: S1 and S2 present. No murmurs, rubs, or gallops. PULMONARY: Chest is clear to auscultation, no wheezing or crackles. ABDOMEN: Soft,nondistended, left lower quadrant tenderness ,bowel sounds present. EXTREMITIES: No cyanosis, clubbing, or pedal edema. NEUROLOGICAL:Gross neurological examination did not reveal any focal deficits. SKIN: Warm and dry, No rashes. - Labs CBC & Chem 7: 09/23/22 09:09 09/23/22 05:02 Assessment and Plan Assessment: -Ileus/partial small bowel obstruction, conservative management. Status post colonoscopy reporting rectal inflammation with biopsies obtained. -Chronic diarrhea 1 year -Recent acute colitis extending from the cecum to the sigmoid colon with small bowel partial obstruction -Recent acute UTI with E. coli complicated secondary to urostomy -Acute renal failure, improving -History of bladder cancer -Hypertension -Hyperlipidemia -Gastroesophageal reflux disease -History of breast cancer which was treated in 2006 with surgery radiation thera py and tamoxifen, reports in remission. -History of retroperitoneal mass, status post immunotherapy Plan: Continue on current medication regime ,monitoring and symptomatic treatment. DC Med regimen of lactobacillus, Gas-X, MiraLAX, PPI and discussed further, preventing fecal impaction in a patient with constipation with overflow diarrhea.discharge planning in progress for today as per surgery. Follow-up with PCP in one week. The impression and plan of care has been dictated as directed. : I performed a history and examination of this patient, discussed the same with the dictator. I agree with the dictator's note ,documented as a scribe. Any additional findings or plans will be noted.
== END 2022-09-24 11:55 | disposition home health service (06) | DRG 389 ==
LOC: EC 10:02 → 5NMEDONC 11:48 → 6NMEDSUR 15:47
PROVIDERS: ADMIT Surgery; ATTEND Surgery
PROC: 0DBP8ZX Excision of Rectum, Via Natural or Artificial Opening Endoscopic, Diagnostic (ICD-10-PCS; principal; 2022-09-23 11:20)
DX: K56.600 Partial intestinal obstruction, unspecified as to cause (principal); N17.9 Acute kidney failure, unspecified; N39.0 Urinary tract infection, site not specified; K56.7 Ileus, unspecified; N99.521 Infection of incontinent external stoma of urinary tract; G89.3 Neoplasm related pain (acute) (chronic); B96.20 Unspecified Escherichia coli [E. coli] as the cause of diseases classified elsewhere; K21.9 Gastro-esophageal reflux disease without esophagitis; E78.5 Hyperlipidemia, unspecified; I10 Essential (primary) hypertension; M54.9 Dorsalgia, unspecified; K59.09 Other constipation; K52.9 Noninfective gastroenteritis and colitis, unspecified; K62.89 Other specified diseases of anus and rectum; Z79.891 Long term (current) use of opiate analgesic; Z79.1 Long term (current) use of non-steroidal anti-inflammatories (NSAID); Z79.899 Other long term (current) drug therapy; Z87.891 Personal history of nicotine dependence; Z90.5 Acquired absence of kidney; Z85.51 Personal history of malignant neoplasm of bladder; Z92.21 Personal history of antineoplastic chemotherapy; Z92.3 Personal history of irradiation; Z85.3 Personal history of malignant neoplasm of breast; Z85.528 Personal history of other malignant neoplasm of kidney; Z96.641 Presence of right artificial hip joint; Z96.643 Presence of artificial hip joint, bilateral; Z91.040 Latex allergy status; Z88.5 Allergy status to narcotic agent; Z88.8 Allergy status to other drugs, medicaments and biological substances
CPT/HCPCS: 36415; 45331; 71045; 72100; 73521; 74176; 80048; 80053; 82150; 83605; 83690; 85025; 85027; 87324; 88305; 96374; 96375; 99284

== ENCOUNTER 2022-11-01 06:57 | Inpatient (IN) | payer MEDICARE, OTHER ==
[2022-10-27 13:59] VITALS: BMI 25.8
[~2022-11-01 06:57] MED LIST changes: +ACETAMINOPHEN TAB 500 MG TAB PO PRN; +DEXAMETHASONE SOD PHOSPHATE 4 MG/ML 1 ML VIAL IV ONE; +HEPARIN SODIUM,PORCINE/PF 5,000 UNIT/0.5 ML SYRINGE SQ PRN; +MIDAZOLAM 2 MG/2 ML VIAL IV PRN; +ONDANSETRON 4 MG/2 ML VIAL IVP ONE; -REGADENOSON 0.4 MG/5 ML SYRINGE IV ONE
[2022-11-01] MEDS: LACTATED RINGERS 1,000 ML IV SCH (08:00)
--- NOTE | 2022-11-01 08:27 | P.GSHP ---
History of Present Illness H&P Date: 11/01/22 Chief Complaint: Partial small bowel obstruction, adhesions Is a 76-year-old female who's had multiple hospital admissions due to chronic partial small bowel obstruction due to adhesions. Patient presents today for exploratory laparotomy and possible lysis of adhesions with possible small bowel resection. Past Medical History Past Medical History: Cancer, GERD/Reflux, Hyperlipidemia, Hypertension Additional Past Medical History / Comment(s): bowel obstructions-recent admission Sep 2022,had fall while in hospital Sep 2022, 2006-breast cancer with surgery, radiation and Tamoxifen, left kidney and bladder cancer -surgery with chemo and hysterectomy., hx colon polyps., pt has urostomy., states constipation for 3 months, has used suppositories, and enemas, past blood in stool and dark black stools., states pain right abdomen by her stoma. , states abdomen is soft but feels swollen. History of Any Multi-Drug Resistant Organisms: None Reported Past Surgical History: Bladder Surgery, Breast Surgery, Joint Replacement Additional Past Surgical History / Comment(s): 2004 TOTAL RIGHT HIP, 2006 LEFT BREAST LUPECTOMY, 2009 LEFT KIDNEY REMOVED, BLADDER SURGERY WITH UROSTOMY, 2016 TOTAL LEFT HIP. Past Anesthesia/Blood Transfusion Reactions: No Reported Reaction Additional Past Anesthesia/Blood Transfusion Reaction / Comment(s): no known hx blood transfusion Smoking Status: Former smoker - Past Family History Mother Family Medical History: No Reported History Medications and Allergies Home Medications Medication Instructions Recorded Confirmed Type Atorvastatin [Lipitor] 20 mg PO TUSA 11/04/21 11/01/22 History Metoprolol Tartrate [Lopressor] 100 mg PO BID 11/04/21 11/01/22 History Verapamil HCl [Verapamil ER] 120 mg PO QAM 11/04/21 11/01/22 History hydrALAZINE HCL [Apresoline] 10 mg PO BID 11/04/21 11/01/22 History lisinopriL 40 mg PO QAM 11/04/21 11/01/22 History oxyCODONE HCL/ACETAMINOPHEN 1 tab PO Q4HR PRN 3 Days #18 tab 11/10/21 11/01/22 Rx [Percocet 10-325 mg] Cholecalciferol (Vitamin D3) 75 mcg PO DAILY 11/12/21 11/01/22 History [Vitamin D3 (3000 Iu)] Pramipexole [Mirapex] 0.25 mg PO HS 08/22/22 11/01/22 History Ondansetron Odt [Zofran Odt] 4 mg PO Q4H PRN 10/27/22 11/01/22 History Simethicone [Gas-X] 125 mg PO DAILY PRN 10/27/22 11/01/22 History metroNIDAZOLE [Flagyl] 500 mg PO TID 10/27/22 11/01/22 History Allergies Allergy/AdvReac Type Severity Reaction Status Date / Time codeine Allergy Rash/Hives, Verified 11/01/22 07:30 red all over colesevelam [From WelChol] Allergy Unknown Verified 11/01/22 07:30 duloxetine [From Cymbalta] Allergy Unknown Verified 11/01/22 07:30 fentanyl Allergy Unknown Verified 11/01/22 07:30 latex Allergy positive Verified 11/01/22 07:30 allergy testing nickel Allergy positive Verified 11/01/22 07:30 allergy testing tramadol Allergy Unknown Verified 11/01/22 07:30 valsartan [From Diovan] Allergy Unknown Verified 11/01/22 07:30 zolpidem [From Ambien] Allergy Unknown Verified 11/01/22 07:30 Surgical - Exam Vital Signs Temp Pulse Resp BP Pulse Ox 98.6 F 65 16 168/76 95 11/01/22 07:59 11/01/22 07:59 11/01/22 07:59 11/01/22 07:59 11/01/22 07:59 - General well developed, well nourished, no distress - Eyes PERRL - ENT normal pinna - Neck no masses - Respiratory normal expansion - Cardiovascular Rhythm: regular - Abdomen urostomy right lower quadrant Abdomen: soft, non tender Results - Imaging CT scan - abdomen: report reviewed (Evidence of transition zone in the mid jejunum in the pelvis. This caused a partial small bowel obstruction) Assessment and Plan Assessment: Adhesions Partial small bowel obstruction We'll perform exploratory laparotomy with lysis of adhesions
[2022-11-01] MEDS ORDERED: NALOXONE 0.4 MG/ML 1 ML VIAL IV PRN (08:29)
--- NOTE | 2022-11-01 08:31 | P.ANPRN ---
Procedure Note - Anesthesia - Epidural/Spinal Epidural Continuous Time Out Performed: Yes Date of Procedure: 11/01/22 Procedure Start Time: 08:07 Procedure Stop Time: 08:13 Location of Patient: PreOp Indication: Acute Post-Operative Pain, Requested by Surgeon Sedation Type: Sedate with meaningful contact maintained Preparation: Sterile Dressing Position: Sitting Catheter: Indwelling Needle Guage: 18 Blood Aspirated: No Pain Paresthesia on Injection Noted: No Events: Uneventful and Well Tolerated
[2022-11-01] MEDS ORDERED: PHENYLEPHRINE-0.9% NACL SYG 1,000 MCG/10 ML SYRINGE ONE (08:43)
[2022-11-01] MEDS ORDERED: GLYCOPYRROLATE 0.2 MG/ML 2 ML VIAL ONE (08:43)
[2022-11-01] MEDS ORDERED: HYDROmorphone (PF) 1 MG/ML ONE (08:43)
[2022-11-01] MEDS ORDERED: LIDOCAINE 2% INJ 20 MG/ML (2 ML VIAL) ONE (08:43)
[2022-11-01] MEDS ORDERED: SUCCINYLCHOLINE CHLORIDE 200 MG/10 ML VIAL IV ONE (08:43)
[2022-11-01] MEDS ORDERED: NEOSTIGMINE 1 MG/ML 10 ML VIAL ONE (08:43)
[2022-11-01] MEDS ORDERED: MIDAZOLAM 2 MG/2 ML VIAL ONE (08:43)
[2022-11-01] MEDS ORDERED: PROPOFOL 10 MG/ML 20 ML VIAL IV ONE (08:43)
[2022-11-01] MEDS ORDERED: ROCURONIUM 10 MG/ML (5 ML VIAL) IV ONE (08:43)
[2022-11-01] MEDS ORDERED: LACTATED RINGERS 1,000 ML IV ONE (09:37)
[2022-11-01] MEDS ORDERED: METOCLOPRAMIDE 5 MG/ML 2 ML VIAL IVP PRN (09:52)
[2022-11-01] MEDS ORDERED: ONDANSETRON 4 MG/2 ML VIAL IVP PRN (09:52)
[2022-11-01] MEDS ORDERED: BENZOCAINE/MENTHOL LOZENG 1 EACH LOZENGE MUCOUS MEM PRN (09:52)
--- NOTE | 2022-11-01 09:56 | P.OP ---
Date of Procedure: 11/01/22 Preoperative Diagnosis: Partial small bowel obstruction Adhesions Postoperative Diagnosis: Partial small bowel obstruction History Incisional hernia Procedure(s) Performed: Lysis of extensive adhesions Partial omentectomy Anesthesia: AMMON Surgeon: Juni Roa Estimated Blood Loss (ml): 10 Pathology: other (Omentum) Condition: stable Disposition: PACU Description of Procedure: The patient's placed on the operative table in supine position. She received general trach tube anesthesia. Abdomen was prepped and draped usual sterile fashion. Patient had a urostomy right lower quadrant. This was walled off with Ioban drape. The skin was incised through the midline scar. Neurologic cautery the subcutaneous tissue divided. And the abdominal wall was divided with left cautery. There were extensive adhesions in the pleural cavity. These were lysed with sharp dissection. Proximally 30 minutes operative time used to lyse adhesions. There was an incisional hernia located at the superior portion of her midline scar. Several adhesive bands which appeared to be causing a partial obstruction were lysed. Small bowel was run. There is no incision any obstruction. The abdomen was areas of bleeding seen. The fascia was closed with looped #1 PDS suture. The incisional hernias repaired during fascial closure. 2 sutures used to close the fascia. Skin was closed caio. Patient top she will was sent to recovery room in stable condition.
[2022-11-01] MEDS ORDERED: MORPHINE SULFATE/PF 10MG/10ML VL IV ONE (11:30)
[2022-11-01] MEDS: HEPARIN SODIUM,PORCINE/PF 5,000 UNIT/0.5 ML SYRINGE SQ SCH ×2 (16:22→23:14)
[2022-11-01] MEDS: D5-0.45% NACL WITH KCL 20MEQ/L 1,000 ML IV SCH ×2 (16:43→23:15)
[2022-11-01] MEDS: FAMOTIDINE 20 MG/2 ML VIAL IV SCH (22:19)
[2022-11-01] MEDS: hydrALAZINE HCL 10 MG TAB PO SCH (23:15)
[2022-11-01] MEDS: METOPROLOL TARTRATE 50 MG TAB PO SCH (23:15)
[2022-11-02] MEDS: LACTATED RINGERS 1,000 ML IV SCH (06:30)
[2022-11-02] MEDS: D5-0.45% NACL WITH KCL 20MEQ/L 1,000 ML IV SCH ×3 (06:33→22:49)
--- NOTE | 2022-11-02 07:18 | P.PN ---
Progress Note - Text Date: 11/02/2022 Time: 06:54 The patient is status post exploratory laparotomy, postoperative day number. The patient has no complaints of nausea vomiting or headache. The patient does not complain of any lower extremity numbness or weakness. The epidural is running at 8 mL per hour. VAS 0-1-10. The epidural will be maintained and ad justed as needed.
[2022-11-02 09:00] LABS: African American GFR (CKD) 72 (>60 ml/min/1.73 sqM); Anion Gap 2 mmol/L; Blood Urea Nitrogen 13 mg/dL (7-17); Calcium 7.7 mg/dL (8.4-10.2); Carbon Dioxide 25 mmol/L (22-30); Chloride 109 mmol/L (98-107); Glucose 119 mg/dL (74-99); Non-African American GFR(CKD) 63 (>60 ml/min/1.73 sqM); Sodium 136 mmol/L (137-145)
[2022-11-02] MEDS ORDERED: ALVIMOPAN 12 MG CAPSULE PO SCH (09:00)
[2022-11-02] MEDS: METOPROLOL TARTRATE 50 MG TAB PO SCH ×2 (09:11→20:51)
[2022-11-02] MEDS: hydrALAZINE HCL 10 MG TAB PO SCH ×2 (09:11→20:51)
[2022-11-02] MEDS: HEPARIN SODIUM,PORCINE/PF 5,000 UNIT/0.5 ML SYRINGE SQ SCH ×3 (09:11→22:49)
[2022-11-02] MEDS: FAMOTIDINE 20 MG/2 ML VIAL IV SCH ×2 (09:11→20:51)
[2022-11-02 09:16] LABS: Basophils % (A) 0 %; Eosinophils % (A) 0 %; HCT 31.7 % (34.0-46.0); HGB 10.1 gm/dL (11.4-16.0); Hypochromasia Slight; Lymphocytes # (A) 0.6 k/uL (1.0-4.8); Lymphocytes % (A) 9 %; MCH 31.4 pg (25.0-35.0); MCV 97.9 fL (80.0-100.0); Macrocytosis Slight; Mean Platelet Volume 10.5; Monocytes # (A) 0.9 k/uL (0-1.0); Monocytes % (A) 13 %; Neutrophils # (A) 5.2 k/uL (1.3-7.7); Neutrophils % (A) 76 %; Platelet Count 153 k/uL (150-450); RBC 3.23 m/uL (3.80-5.40); RDW 15.6 % (11.5-15.5); WBC 6.8 k/uL (3.8-10.6)
[2022-11-02] MEDS: lisinopriL 20 MG TAB PO SCH (11:40)
[2022-11-02] MEDS: VERAPAMIL SR 120 MG TABLET.ER PO SCH (11:40)
[2022-11-02] MEDS: ROPIVACAINE 250 MG, HYDROMORPHONE (PF) 5 MG in SODIUM CHLORIDE 0.9% 200 ML EPIDURAL PRN (12:55)
--- NOTE | 2022-11-02 14:57 | P.PN ---
Subjective Progress Note Date: 11/02/22 CHIEF COMPLAINT: Partial small bowel obstruction HISTORY OF PRESENT ILLNESS: Patient is status post lysis of extensive adhesions and partial omentectomy. Postop day #1 for partial small bowel obstruction and history of incisional hernia. Patient reports her pain is controlled. Currently has epidural in place. Denies any nausea or vomiting. Afebrile. WBC is 6.8 Hgb 10.1 and platelets 153 sons 136 potassium is 5 creatinine 0.90 Patient seen and examined with Dr. nation PHYSICAL EXAM: VITAL SIGNS: Reviewed. GENERAL: Well-developed in no acute distress. HEENT: No sclera icterus. Extraocular movements grossly intact. Moist buccal mucosa. Head is atraumatic, normocephalic. ABDOMEN: Soft. Nondistended. Nontender. NEUROLOGIC: Alert and oriented. Cranial nerves II through XII grossly intact. ASSESSMENT: 1. Partial small bowel obstruction due to adhesions. Patient is status post l ysis of extensive adhesions and partial omentectomy PLAN: -Continue epidural for pain control -Advance diet to full liquids -Continue IV fluids -Incentive spirometer ordered -GI prophylaxis Pepcid and DVT prophylaxis subcu heparin Physician Brass Finisher note has been reviewed by physician. Signing provider agrees with the documented findings, assessment, and plan of care. Objective - Vital Signs Vital signs: Vital Signs Temp 98.6 F 11/02/22 11:00 Pulse 80 11/02/22 11:00 Resp 18 11/02/22 11:00 BP 182/81 11/02/22 10:50 Pulse Ox 95 11/02/22 11:00 FiO2 Intake & Output 11/01/22 11/02/22 11/02/22 18:59 06:59 18:59 Intake Total 1650 Output Total 20 400 Balance 1630 -400 Weight 74.1 kg Intake: IV 1650 Output: Urine 400 Estimated Blood Loss 20 Other: Voiding Method Ileal Conduit (Left) Ileal Conduit (Left) - Labs CBC & Chem 7: 11/02/22 08:17 11/02/22 08:17 Labs: Abnormal Lab Results - Last 24 Hours (Table) 11/02/22 11/02/22 Range/Units 08:17 08:17 RBC 3.23 L (3.80-5.40) m/uL Hgb 10.1 L (11.4-16.0) gm/dL Hct 31.7 L (34.0-46.0) % RDW 15.6 H (11.5-15.5) % Lymphocytes # 0.6 L (1.0-4.8) k/uL Sodium 136 L (137-145) mmol/L Chloride 109 H (98-107) mmol/L Glucose 119 H (74-99) mg/dL Calcium 7.7 L (8.4-10.2) mg/dL
--- NOTE | 2022-11-02 16:18 | P.CONS ---
History of Present Illness - Reason for Consult Consult date: 11/02/22 Medical management hypertension Requesting physician: Juni Roa - Chief Complaint Abdominal pain, partial small bowel obstruction, S/P OR - History of Present Illness This is a 76-year-old female with history of ileus, small bowel obstructions, colitis, breast cancer status post radiation and chemotherapy and multiple other medical issues admitted with partial small bowel obstruction, status post lysis of extensive adhesions and partial laminectomy postop day #1. Tolerated procedure well. Pain controlled with epidural. NPO, maintained on IV fluid hydration.Expressing she is hungry and hopes to have her diet advanced. Denies nausea. Passing flatus. Denies chest pain, palpitations or shortness of breath. Afebrile, normal WBC. Hemoglobin 10.1, platelets 153, electrolytes within normal limits. Renal function stable. Review of Systems Constitutional: Denied any fatigue denied any fever. Cardio vascular: denied any chest pain, palpitations Gastrointestinal denied any nausea vomiting Pulmonary: Denied any shortness of breath cough Neurologic denied any new focal deficits ROS Statement: Those systems with pertinent positive or pertinent negative responses have been documented in the HPI. ROS Other: All systems not noted in ROS Statement are negative. Past Medical History Past Medical History: Cancer, GERD/Reflux, Hyperlipidemia, Hypertension Additional Past Medical History / Comment(s): bowel obstructions-recent admission Sep 2022,had fall while in hospital Sep 2022, 2006-breast cancer with surgery, radiation and Tamoxifen, left kidney and bladder cancer -surgery with chemo and hysterectomy., hx colon polyps., pt has urostomy., states constipation for 3 months, has used suppositories, and enemas, past blood in stool and dark black stools., states pain right abdomen by her stoma. , states abdomen is soft but feels swollen. History of Any Multi-Drug Resistant Organisms: None Reported Past Surgical History: Bladder Surgery, Breast Surgery, Joint Replacement Additional Past Surgical History / Comment(s): 2004 TOTAL RIGHT HIP, 2006 LEFT BREAST LUPECTOMY, 2009 LEFT KIDNEY REMOVED, BLADDER SURGERY WITH UROSTOMY, 2016 TOTAL LEFT HIP. Past Anesthesia/Blood Transfusion Reactions: No Reported Reaction Additional Past Anesthesia/Blood Transfusion Reaction / Comm: no known hx blood transfusion Smoking Status: Former smoker - Past Family History Mother Family Medical History: No Reported History Medications and Allergies Home Medications Medication Instructions Recorded Confirmed Type Atorvastatin [Lipitor] 20 mg PO TUSA 11/04/21 11/01/22 History Metoprolol Tartrate [Lopressor] 100 mg PO BID 11/04/21 11/01/22 History Verapamil HCl [Verapamil ER] 120 mg PO QAM 11/04/21 11/01/22 History hydrALAZINE HCL [Apresoline] 10 mg PO BID 11/04/21 11/01/22 History lisinopriL 40 mg PO QAM 11/04/21 11/01/22 History oxyCODONE HCL/ACETAMINOPHEN 1 tab PO Q4HR PRN 3 Days #18 tab 11/10/21 11/01/22 Rx [Percocet 10-325 mg] Cholecalciferol (Vitamin D3) 75 mcg PO DAILY 11/12/21 11/01/22 History [Vitamin D3 (3000 Iu)] Pramipexole [Mirapex] 0.25 mg PO HS 08/22/22 11/01/22 History Ondansetron Odt [Zofran Odt] 4 mg PO Q4H PRN 10/27/22 11/01/22 History Simethicone [Gas-X] 125 mg PO DAILY PRN 10/27/22 11/01/22 History metroNIDAZOLE [Flagyl] 500 mg PO TID 10/27/22 11/01/22 History Allergies Allergy/AdvReac Type Severity Reaction Status Date / Time codeine Allergy Rash/Hives, Verified 11/01/22 07:30 red all over colesevelam [From WelChol] Allergy Unknown Verified 11/01/22 07:30 duloxetine [From Cymbalta] Allergy Unknown Verified 11/01/22 07:30 fentanyl Allergy Unknown Verified 11/01/22 07:30 latex Allergy positive Verified 11/01/22 07:30 allergy testing nickel Allergy positive Verified 11/01/22 07:30 allergy testing tramadol Allergy Unknown Verified 11/01/22 07:30 valsartan [From Diovan] Allergy Unknown Verified 11/01/22 07:30 zolpidem [From Ambien] Allergy Unknown Verified 11/01/22 07:30 Physical Exam Vitals: Vital Signs Temp Pulse Resp BP Pulse Ox 11/02/22 07:36 95 11/02/22 05:00 98.7 F 71 16 156/86 95 11/02/22 02:25 142/69 12/12/22 20:00 98.1 F 84 16 188/81 94 L 11/01/22 16:25 98.1 F 58 L 16 185/72 94 L 11/01/22 15:39 61 16 163/74 94 L 11/01/22 15:00 62 13 159/72 94 L 11/01/22 14:27 64 14 171/74 11/01/22 14:00 63 12 168/75 11/01/22 13:30 61 12 172/77 11/01/22 13:15 56 L 12 170/79 93 L 11/01/22 13:00 59 L 17 159/74 93 L 11/01/22 12:45 58 L 17 161/74 93 L 11/01/22 12:30 66 17 157/73 94 L 11/01/22 12:15 57 L 16 156/70 95 11/01/22 12:00 60 16 161/77 95 11/01/22 11:45 58 L 16 157/77 95 11/01/22 11:15 65 17 155/72 95 11/01/22 10:45 60 17 155/74 94 L 11/01/22 10:30 61 16 149/68 99 11/01/22 10:12 59 L 16 150/72 100 11/01/22 09:53 63 16 146/70 100 11/01/22 08:38 69 16 141/69 99 Intake and Output 11/01/22 11/02/22 11/02/22 22:59 06:59 14:59 Output Total 400 Balance -400 Output: Urine 400 Other: Voiding Method Ileal Conduit (Left) - Exam GENERAL: Sitting up in bed, alert and oriented x3, no acute distress CARDIOVASCULAR: S1 and S2 present. No murmurs, rubs, or gallops. PULMONARY: Chest is clear to auscultation, no wheezing or crackles. ABDOMEN: Soft, status post surgery EXTREMITIES: No cyanosis, clubbing, positive bilateral lower extremity edema. NEUROLOGICAL:Gross neurological examination did not reveal any focal deficits. SKIN: Warm and dry, No rashes. Results CBC & Chem 7: 11/02/22 08:17 11/02/22 08:17 Assessment and Plan Assessment: -Partial small bowel obstruction secondary to adhesions, status post lysis of extensive adhesions and partial omentectomy -History of recent Ileus/partial small bowel obstruction, conservative management. Status post recent colonoscopy reporting rectal inflammation with biopsies obtained. -Chronic diarrhea 1 year -History of colitis extending from the cecum to the sigmoid colon with small bowel partial obstruction -History of UTI with E. coli complicated secondary to urostomy -History of bladder cancer -Hypertension -Hyperlipidemia -Gastroesophageal reflux disease -History of breast cancer which was treated in 2006 with surgery radiation therapy and tamoxifen, reports in remission. -History of retroperitoneal mass, status post immunotherapy Plan: Continue on current medication regime ,monitoring and symptomatic treatment. Gentle IV fluid hydration. GI and DVT prophylaxis in place with Pepcid and subcu heparin. Home medications reviewed and resumed accordingly. Aggressive pulmonary toileting with incentive spirometer reinforced. Pain manag ement service diet advancement as per general surgery. Thank you for the consult. The impression and plan of care has been dictated as directed. : I performed a history and examination of this patient, discussed the same with the dictator. I agree with the dictator's note ,documented as a scribe. Any additional findings or plans will be noted.
[2022-11-03] MEDS: LACTATED RINGERS 1,000 ML IV SCH (05:43)
[2022-11-03] MEDS: D5-0.45% NACL WITH KCL 20MEQ/L 1,000 ML IV SCH ×2 (06:19→15:31)
[2022-11-03] MEDS: FAMOTIDINE 20 MG/2 ML VIAL IV SCH ×2 (08:28→21:37)
[2022-11-03] MEDS: hydrALAZINE HCL 10 MG TAB PO SCH ×2 (08:28→21:37)
[2022-11-03] MEDS: lisinopriL 20 MG TAB PO SCH (08:28)
[2022-11-03] MEDS: METOPROLOL TARTRATE 50 MG TAB PO SCH ×2 (08:33→21:37)
[2022-11-03] MEDS: HEPARIN SODIUM,PORCINE/PF 5,000 UNIT/0.5 ML SYRINGE SQ SCH ×3 (08:33→23:48)
[2022-11-03] MEDS: VERAPAMIL SR 120 MG TABLET.ER PO SCH (08:33)
[2022-11-03] MEDS ORDERED: amLODIPine 5 MG TAB PO STA (12:13)
--- NOTE | 2022-11-03 15:06 | P.PN ---
Progress Note - Text Date: 03/04/2022 Time: 7:03 The patient is status post, exploratory laparotomy, postoperative day number2. The patient has no complaints of nausea vomiting or headache. The patient does not complain of any lower extremity numbness or weakness. The epidural is running at 8 mL per hour. VAS 2-3-10. The epidural will be maintained and a djusted as needed.
[2022-11-03] MEDS: ROPIVACAINE 250 MG, HYDROMORPHONE (PF) 5 MG in SODIUM CHLORIDE 0.9% 200 ML EPIDURAL PRN (15:52)
--- NOTE | 2022-11-03 16:03 | P.PN ---
Subjective Progress Note Date: 11/03/22 CHIEF COMPLAINT: Partial small bowel obstruction HISTORY OF PRESENT ILLNESS: Patient is status post lysis of extensive adhesions and partial omentectomy. Postop day #2 for partial small bowel obstruction and history of incisional hernia. Patient reports her pain is controlled. Does have more pain with movement. Currently has epidural in place. Denies any nausea or vomiting. She is having multiple loose bowel movements. She complains of some hemorrhoid flareup.: Full liquids. Afebrile. Elevated BP. WBC 6.8 Patient seen and examined with Dr. nation PHYSICAL EXAM: VITAL SIGNS: Reviewed. GENERAL: Well-developed in no acute distress. HEENT: No sclera icterus. Extraocular movements grossly intact. Moist buccal mucosa. Head is atraumatic, normocephalic. ABDOMEN: Soft. Nondistended. Nontender. NEUROLOGIC: Alert and oriented. Cranial nerves II through XII grossly intact. ASSESSMENT: 1. Partial small bowel obstruction due to adhesions. Patient is status post lysis of extensive adhesions and partial omentectomy PLAN: -Continue epidural for pain control -Advance diet to regular -Discontinue IV fluids -Tucks pad ordered for hemorrhoids -Encouraged patient to increase activity level -Encouraged patient to use incentive spirometer -GI prophylaxis Pepcid and DVT prophylaxis subcu heparin Physician Gamb Cutter note has been reviewed by physician. Signing provider agrees with the documented findings, assessment, and plan of care. Objective - Vital Signs Vital signs: Vital Signs Temp 98.2 F 11/03/22 11:30 Pulse 66 11/03/22 11:30 Resp 18 11/03/22 11:30 BP 197/83 11/03/22 11:30 Pulse Ox 96 11/03/22 12:06 FiO2 Intake & Output 11/02/22 11/03/22 11/03/22 18:59 06:59 18:59 Intake Total 1500 215.6 Output Total 1200 1500 Balance -1200 1500 -1284.4 Intake: Intake, IV Titration 1500 215.6 Amount D5-0.45% NaCl with KCl 1500 20Meq/l 1,000 ml @ 125 mls/hr IV .Q8H JACOBY Rx#: [id number] Ropivacaine 250 mg 215.6 Hydromorphone (Pf) 5 mg In Sodium Chloride 0.9% 200 ml @ Per Protocol EPIDURAL .Q0M PRN Rx#: [id number] Output: Urine 1200 1500 Other: Voiding Method Ileal Conduit (Left) Ileal Conduit (Left) # Voids 2 # Bowel Movements 3 1 - Labs CBC & Chem 7: 11/02/22 08:17 11/02/22 08:17
[2022-11-04] MEDS: LACTATED RINGERS 1,000 ML IV SCH ×2 (06:04→23:22)
--- NOTE | 2022-11-04 07:36 | P.PN ---
Progress Note - Text Date: 11/04/2022 Time: 07:13 The patient is status post, exploratory laparotomy, postoperative day number 3. The patient has no complaints of nausea vomiting or headache. The patient does not complain of any lower extremity numbness or weakness. The epidural is running at 8 mL per hour. VAS 1-10. The epidural will be discontinued this morning. Pain meds will be provided the patient by the service.
[2022-11-04] MEDS: HEPARIN SODIUM,PORCINE/PF 5,000 UNIT/0.5 ML SYRINGE SQ SCH ×3 (07:59→23:20)
[2022-11-04] MEDS ORDERED: HYDROmorphone 1 MG/ML 1 ML SYRINGE IVP PRN (08:07)
[2022-11-04] MEDS ORDERED: oxyCODONE-APAP 10-325MG 1 EACH TAB PO PRN (08:07)
--- NOTE | 2022-11-04 08:19 | P.PN ---
Progress Note - Text Progress Note Date: 11/03/22 Computer is down/dull time charting for progress note 11/03/2022; please refer to paper progress note on chart. The impression and plan of care has been dictated as directed. : I performed a history and examination of this patient, discussed the same with the dictator. I agree with the dictator's note ,documented as a scribe. Any additional findings or plans will be noted.
[2022-11-04] MEDS: FAMOTIDINE 20 MG/2 ML VIAL IV SCH ×2 (08:54→20:15)
[2022-11-04] MEDS: lisinopriL 20 MG TAB PO SCH (08:55)
[2022-11-04] MEDS: VERAPAMIL SR 120 MG TABLET.ER PO SCH (08:55)
[2022-11-04] MEDS: METOPROLOL TARTRATE 50 MG TAB PO SCH ×2 (08:55→20:15)
[2022-11-04] MEDS: hydrALAZINE HCL 10 MG TAB PO SCH ×2 (08:55→20:14)
[2022-11-04 10:17] LABS: HCT 33.8 % (37.2-46.3); HGB 10.4 g/dL (12.0-15.0); MCH 30.9 pg (27.0-32.0); MCHC 30.8 g/dL (32.0-37.0); MCV 100.3 fL (80.0-97.0); Mean Platelet Volume 12.4 fL (9.5-12.2); NRBC Per 100 WBC 0 /100 WBCS (0.0-0.0); Platelet Count 168 X 10*3/uL (140-440); RBC 3.37 X 10*6/uL (4.10-5.20); RDW 16.3 % (11.5-14.5); WBC 4.29 X 10*3/uL (4.50-10.00)
[2022-11-04 10:30] LABS: African American GFR (CKD) 97.5 (60.0-200.0); BUN/Creat Ratio 6.43 Ratio (12.00-20.00); Blood Urea Nitrogen 4.5 mg/dL (9.0-27.0); Calcium 8.6 mg/dL (8.7-10.3); Non-African American GFR(CKD) 84.2 (60.0-200.0); Potassium 4.4 mmol/L (3.5-5.5)
--- NOTE | 2022-11-04 11:44 | P.PN ---
Subjective Progress Note Date: 11/04/22 - Chief Complaint Abdominal pain, partial small bowel obstruction, S/P OR - History of Present Illness (11/02/22) This is a 76-year-old female with history of ileus, small bowel obstructions, colitis, breast cancer status post radiation and chemotherapy and multiple other medical issues admitted with partial small bowel obstruction, status post lysis of extensive adhesions and partial laminectomy postop day #1. Tolerated procedure well. Pain controlled with epidural. NPO, maintained on IV fluid hydration.Expressing she is hungry and hopes to have her diet advanced. Denies nausea. Passing flatus. Denies chest pain, palpitations or shortness of breath. Afebrile, normal WBC. Hemoglobin 10.1, platelets 153, electrolytes within normal limits. Renal function stable. Progress Note Date: 11/03/22 Computer is down/dull time charting for progress note 11/03/2022; please refer to paper progress note on chart. 11/04/2022 epidural discontinued earlier this morning, pain controlled. Received a dose of Norvasc yesterday for hypertension. Hypertensive, IV meds discontinued, tolerating advancement to regular diet. Denies nausea vomiting. Reports diarrhea last night nonpainful. Denies chest pain, palpitations or shortness of breath. Daily O2 sats in the 90s on room air. Afebrile, WBC 4.29, hemoglobin 10.4, platelets 168. Electrolytes within normal limits, renal function stable. Objective - Vital Signs Vital signs: Vital Signs Temp 98.0 F 11/04/22 04:25 Pulse 66 11/04/22 08:45 Resp 13 11/04/22 04:25 BP 188/73 11/04/22 08:45 Pulse Ox 93 L 11/04/22 04:25 FiO2 Intake & Output 11/03/22 11/04/22 11/04/22 18:59 06:59 18:59 Intake Total 215.6 Output Total 1500 2875 Balance -1284.4 -2875 Intake: Intake, IV Titration 215.6 Amount Ropivacaine 250 mg 215.6 Hydromorphone (Pf) 5 mg In Sodium Chloride 0.9% 200 ml @ Per Protocol EPIDURAL .Q0M PRN Rx#: [id number] Output: Urine 1500 2875 Other: Voiding Method Ileal Conduit (Left) Ileal Conduit (Left) # Bowel Movements 1 1 - Exam - Exam GENERAL: Sitting up in bed, alert and oriented x3, no acute distress CARDIOVASCULAR: S1 and S2 present. No murmurs, rubs, or gallops. PULMONARY: Chest is clear to auscultation, no wheezing or crackles. ABDOMEN: Soft, tender, status post surgery, dressing clean dry and intact, right-sided ostomy EXTREMITIES: No cyanosis, clubbing, positive bilateral lower extremity edema. NEUROLOGICAL:Gross neurological examination did not reveal any focal deficits. SKIN: Warm and dry, No rashes. - Labs CBC & Chem 7: 11/04/22 07:26 12 07:26 Labs: Abnormal Lab Results - Last 24 Hours (Table) 11/04/22 11/04/22 Range/Units 07: 07:26 WBC 4.29 L (4.50-10.00) X 10*3/uL RBC 3.37 L (4.10-5.20) X 10*6/uL Hgb 10.4 L (12.0-15.0) g/dL Hct 33.8 L (37.2-46.3) % MCV 100.3 H (80.0-97.0) fL MCHC 30.8 L (32.0-37.0) g/dL RDW 16.3 H (11.5-14.5) % MPV 12.4 H (9.5-12.2) fL Anion Gap 6.00 L (10.00-18.00) mmol/L BUN 4.5 L (9.0-27.0) mg/dL BUN/Creatinine Ratio 6.43 L (12.00-20.00) Ratio Calcium 8.6 L (8.7-10.3) mg/dL Assessment and Plan Assessment: -Partial small bowel obstruction secondary to adhesions, status post lysis of extensive adhesions and partial omentectomy -History of recent Ileus/partial small bowel obstruction, conservative management. Status post recent colonoscopy reporting rectal inflammation with biopsies obtained. -Chronic diarrhea 1 year -History of colitis extending from the cecum to the sigmoid colon with small bowel partial obstruction -History of UTI with E. coli complicated secondary to urostomy -History of bladder cancer -Hypertension -Hyperlipidemia -Gastroesophageal reflux disease -History of breast cancer which was treated in 2006 with surgery radiation therapy and tamoxifen, reports in remission. -History of retroperitoneal mass, status post immunotherapy Plan: Continue on current medication regime ,monitoring and symptomatic treatment. Increase ambulation as tolerated. Pain management as per surgery. Maintain aggressive pulmonary toileting with incentive spirometer reinforced. Recommend Gas-X ax at [place]. Follow up with PCP in one week. The impression and plan of care has been dictated as directed. : I performed a history and examination of this patient, discussed the same with the dictator. I agree with the dictator's note ,documented as a scribe. Any additional findings or plans will be noted.
--- NOTE | 2022-11-04 16:19 | P.PN ---
Subjective Progress Note Date: 11/04/22 CHIEF COMPLAINT: Partial small bowel obstruction HISTORY OF PRESENT ILLNESS: Patient is status post lysis of extensive adhesions and partial omentectomy. Postop day #3. Epidural discontinued today. Her pain is controlled. She is tolerating regular diet. She is having bowel movements and flatus. Afebrile. Elevated BP WBC is 4.29 Hgb 10.4 platelets [id number] potassium 4.4 creatinine 0.7 Patient seen and examined with Dr. nation PHYSICAL EXAM: VITAL SIGNS: Reviewed. GENERAL: Well-developed in no acute distress. HEENT: No sclera icterus. Extraocular movements grossly intact. Moist buccal mucosa. Head is atraumatic, normocephalic. ABDOMEN: Soft. Nondistended. NEUROLOGIC: Alert and oriented. Cranial nerves II through XII grossly intact. ASSESSMENT: 1. Partial small bowel obstruction due to adhesions. Patient is status post lysis of extensive adhesions and partial omentectomy PLAN: -Epidural discontinued -IV Dilaudid and Percocet ordered for pain medication -Encouraged patient to ambulate -Possible discharge tomorrow -Tucks pad ordered for hemorrhoids -Encouraged patient to increase activity level -Encouraged patient to use incentive spirometer -GI prophylaxis Pepcid and DVT prophylaxis subcu heparin Physician Supervisor [employer]ranium Processing note has been reviewed by physician. Signing provider agrees with the documented findings, assessment, and plan of care. Objective - Vital Signs Vital signs: Vital Signs Temp 98.4 F 11/04/22 11:07 Pulse 63 11/04/22 11:07 Resp 16 11/04/22 11:07 BP 177/70 11/04/22 11:07 Pulse Ox 95 11/04/22 11:07 FiO2 Intake & Output 11/03/22 11/04/22 11/04/22 18:59 06:59 18:59 Intake Total 215.6 Output Total 1500 2875 1300 Balance -1284.4 -2875 -1300 Intake: Intake, IV Titration 215.6 Amount Ropivacaine 250 mg 215.6 Hydromorphone (Pf) 5 mg In Sodium Chloride 0.9% 200 ml @ Per Protocol EPIDURAL .Q0M PRN Rx#: [id number] Output: Urine 1500 2875 1300 Other: Voiding Method Ileal Conduit (Left) Ileal Conduit (Left) # Bowel Movements 1 1 - Labs CBC & Chem 7: 11/04/22 07:26 11/04/22 07:26 Labs: Abnormal Lab Results - Last 24 Hours (Table) 11/04/22 11/04/22 Range/Units 07:26 07:26 WBC 4.29 L (4.50-10.00) X 10*3/uL RBC 3.37 L (4.10-5.20) X 10*6/uL Hgb 10.4 L (12.0-15.0) g/dL Hct 33.8 L (37.2-46.3) % MCV 100.3 H (80.0-97.0) fL MCHC 30.8 L (32.0-37.0) g/dL RDW 16.3 H (11.5-14.5) % MPV 12.4 H (9.5-12.2) fL Anion Gap 6.00 L (10.00-18.00) mmol/L BUN 4.5 L (9.0-27.0) mg/dL BUN/Creatinine Ratio 6.43 L (12.00-20.00) Ratio Calcium 8.6 L (8.7-10.3) mg/dL
[2022-11-05] MEDS: lisinopriL 20 MG TAB PO SCH (04:49)
[2022-11-05] MEDS: METOPROLOL TARTRATE 50 MG TAB PO SCH (08:10)
[2022-11-05] MEDS: FAMOTIDINE 20 MG/2 ML VIAL IV SCH (08:10)
[2022-11-05] MEDS: VERAPAMIL SR 120 MG TABLET.ER PO SCH (08:10)
[2022-11-05] MEDS: hydrALAZINE HCL 10 MG TAB PO SCH (08:10)
[2022-11-05] MEDS: HEPARIN SODIUM,PORCINE/PF 5,000 UNIT/0.5 ML SYRINGE SQ SCH (08:10)
[2022-11-05 12:38] VITALS: PULSE 75; RESP 16; TEMP 98.4
[2022-11-05] MEDS ORDERED: hydrALAZINE HCL 20 MG/ML 1 ML VIAL IVP STA (12:49)
--- NOTE | 2022-11-05 13:02 | P.PN ---
Subjective Progress Note Date: 11/05/22 - Chief Complaint Abdominal pain, partial small bowel obstruction, S/P OR - History of Present Illness (11/02/22) This is a 76-year-old female with history of ileus, small bowel obstructions, colitis, breast cancer status post radiation and chemotherapy and multiple other medical issues admitted with partial small bowel obstruction, status post lysis of extensive adhesions and partial laminectomy postop day #1. Tolerated procedure well. Pain controlled with epidural. NPO, maintained on IV fluid hydration.Expressing she is hungry and hopes to have her diet advanced. Denies nausea. Passing flatus. Denies chest pain, palpitations or shortness of breath. Afebrile, normal WBC. Hemoglobin 10.1, platelets 153, electrolytes within normal limits. Renal function stable. Progress Note Date: 11/03/22 Computer is down/dull time charting for progress note 11/03/2022; please refer to paper progress note on chart. 11/04/2022 epidural discontinued earlier this morning, pain controlled. Received a dose of Norvasc yesterday for hypertension. Hypertensive, IV meds discontinued, tolerating advancement to regular diet. Denies nausea vomiting. Reports diarrhea last night nonpainful. Denies chest pain, palpitations or shortness of breath. Daily O2 sats in the 90s on room air. Afebrile, WBC 4.29, hemoglobin 10.4, platelets 168. Electrolytes within normal limits, renal function stable. 11/05/2022 reports no pain. Passing flatus, positive loose bowel movements. Complains of restless legs. Afebrile. Hypertensive, hydralazine increased. Denies chest pain, palpitations or shortness of breath. Objective - Vital Signs Vital signs: Vital Signs Temp 97.4 F L 11/05/22 04:24 Pulse 62 11/05/22 04:24 Resp 18 11/05/22 04:24 BP 161/80 11/05/22 06:22 Pulse Ox 96 11/05/22 04:24 FiO2 Intake & Output 11/04/22 11/05/22 11/05/22 18:59 06:59 18:59 Intake Total 600 240 Output Total 2500 1600 Balance -2500 -1000 240 Intake: Oral 600 240 Output: Urine 2500 1600 Other: Voiding Method Ileal Conduit (Left) Ileal Conduit (Left) Ileal Conduit (Left) # Bowel Movements 1 - Exam - Exam GENERAL: Sitting up in bed, alert and oriented x3, no acute distress CARDIOVASCULAR: S1 and S2 present. No murmurs, rubs, or gallops. PULMONARY: Chest is clear to auscultation, no wheezing or crackles. ABDOMEN: Soft, tender, status post surgery, dressing clean dry and intact, right-sided ostomy EXTREMITIES: No cyanosis, clubbing, positive bilateral lower extremity edema. NEUROLOGICAL:Gross neurological examination did not reveal any focal deficits. SKIN: Warm and dry, No rashes. - Labs CBC & Chem 7: 11/04/22 07:26 11/04/22 07:26 Assessment and Plan Assessment: -Partial small bowel obstruction secondary to adhesions, status post lysis of extensive adhesions and partial omentectomy -History of recent Ileus/partial small bowel obstruction, conservative management. Status post recent colonoscopy reporting rectal inflammation with biopsies obtained. -Chronic diarrhea 1 year -History of colitis extending from the cecum to the sigmoid colon with small bowel partial obstruction -History of UTI with E. coli complicated secondary to urostomy -History of bladder cancer -Hypertension -Hyperlipidemia -Gastroesophageal reflux disease -History of breast cancer which was treated in 2006 with surgery radiation therapy and tamoxifen, reports in remission. -History of retroperitoneal mass, status post immunotherapy -Restless leg syndrome Plan: Continue on current medication regime ,monitoring and symptomatic treatment. Discharge planning in progress for today with pain management as per primary. Maintain aggressive pulmonary toileting with incentive spirometer reinforced. Follow up with PCP in one week. The impression and plan of care has been dictated as directed. : I performed a history and examination of this patient, discussed the same with the dictator. I agree with the dictator's note ,documented as a scribe. Any additional findings or plans will be noted.
--- NOTE | 2022-11-05 13:13 | P.DS ---
Providers Date of admission: 11/01/22 06:57 Expected date of discharge: 11/05/22 Attending physician: Juni Roa Consults: 11/01/22 09:52 Consult Physician Routine Consulting Provider: Solomon Thomas Consult Reason/Comments: Medical management Do you want consulting provider notified?: Yes Primary care physician: Solomon Thomas MD Hospital Course: Discharge diagnosis 1. Partial small bowel obstruction due to adhesions. Patient is status post lysis of extensive adhesions and partial omentectomy Hospital course This is a 76-year-old female with a history of partial small bowel obstruction send her to adhesions. She is status post lysis of extensive adhesions and partial omentectomy. Patient is tolerating diet. Her pain is controlled. She is having bowel movements. She is afebrile. She has been up and ambulating. She is stable for discharge. Physician Jack Tamp Operator note has been reviewed by physician. Signing provider agrees with the documented findings, assessment, and plan of care. Patient Condition at Discharge: Stable Plan - Discharge Summary Discharge Rx Participant: No New Discharge Prescriptions: New rOPINIRole HCL [Requip] 0.25 mg PO BID 14 Days #28 tablet Psyllium Husk 100% [Metamucil Packet] 1 packet PO DAILY #30 packet Continue Verapamil HCl [Verapamil ER] 120 mg PO QAM lisinopriL 40 mg PO QAM oxyCODONE HCL/ACETAMINOPHEN [Percocet 10-325 mg] 1 tab PO Q4HR PRN 3 Days #18 tab PRN Reason: Pain Pramipexole [Mirapex] 0.25 mg PO HS Ondansetron Odt [Zofran ODT] 4 mg PO Q4H PRN PRN Reason: Nausea hydrALAZINE HCL [Apresoline] 10 mg PO BID Atorvastatin [Lipitor] 20 mg PO TUSA Metoprolol Tartrate [Lopressor] 100 mg PO BID Cholecalciferol (Vitamin D3) [Vitamin D3 (3000 Iu)] 75 mcg PO DAILY Simethicone [Gas-X] 125 mg PO DAILY PRN PRN Reason: gas Discontinued metroNIDAZOLE [Flagyl] 500 mg PO TID Discharge Medication List Atorvastatin [Lipitor] 20 mg PO TUSA 11/04/21 [History] Metoprolol Tartrate [Lopressor] 100 mg PO BID 11/04/21 [History] Verapamil HCl [Verapamil ER] 120 mg PO QAM 11/04/21 [History] hydrALAZINE HCL [Apresoline] 10 mg PO BID 11/04/21 [History] lisinopriL 40 mg PO QAM 11/04/21 [History] oxyCODONE HCL/ACETAMINOPHEN [Percocet 10-325 mg] 1 tab PO Q4HR PRN 3 Days #18 tab 11/10/21 [Rx] Cholecalciferol (Vitamin D3) [Vitamin D3 (3000 Iu)] 75 mcg PO DAILY 11/12/21 [History] Pramipexole [Mirapex] 0.25 mg PO HS 08/22/22 [History] Ondansetron Odt [Zofran ODT] 4 mg PO Q4H PRN 10/27/22 [History] Simethicone [Gas-X] 125 mg PO DAILY PRN 10/27/22 [History] Psyllium Husk 100% [Metamucil Packet] 1 packet PO DAILY #30 packet 11/05/22 [Rx] rOPINIRole HCL [Requip] 0.25 mg PO BID 14 Days #28 tablet 11/05/22 [Rx] Follow up Appointment(s)/Referral(s): Solomon Thomas MD [Primary Care Provider] - 11/11/22 10:00 am () [facility] [NON-STAFF] - 1 Week Juni Roa MD [STAFF PHYSICIAN] - 11/11/22 2:30 pm Patient Instructions/Handouts: Bowel Obstruction (DC) Activity/Diet/Wound Care/Special Instructions: No driving while taking pain medication No lifting over 10 pounds Shower daily. No soaking or tub baths for 2 weeks Very light activity until you are reevaluated at your follow up appointment with your surgeon Discharge Disposition: HOME WITH HOME HEALTH SERVICES
[2022-11-05 14:00] VITALS: BP 183/85
[2022-11-05] MEDS ORDERED: hydrALAZINE HCL 10 MG TAB PO SCH (14:00)
== END 2022-11-05 15:00 | disposition home health service (06) | DRG 337 ==
LOC: 2ORMAIN 06:57 → 5NMEDONC 15:24
PROVIDERS: ADMIT Surgery; ATTEND Surgery
PROC: 0DBU0ZZ Excision of Omentum, Open Approach (ICD-10-PCS; principal; 2022-11-01 08:35)
PROC: 0DN80ZZ Release Small Intestine, Open Approach (ICD-10-PCS; principal; 2022-11-01 08:35)
PROC: 0WQF0ZZ Repair Abdominal Wall, Open Approach (ICD-10-PCS; principal; 2022-11-01 08:35)
DX: K56.51 Intestinal adhesions [bands], with partial obstruction (principal); E78.5 Hyperlipidemia, unspecified; K43.2 Incisional hernia without obstruction or gangrene; Z43.6 Encounter for attention to other artificial openings of urinary tract; K52.9 Noninfective gastroenteritis and colitis, unspecified; I10 Essential (primary) hypertension; G25.81 Restless legs syndrome; K64.9 Unspecified hemorrhoids; K21.9 Gastro-esophageal reflux disease without esophagitis; Z79.899 Other long term (current) drug therapy; Z87.891 Personal history of nicotine dependence; Z91.81 History of falling; Z96.641 Presence of right artificial hip joint; Z85.3 Personal history of malignant neoplasm of breast; Z85.51 Personal history of malignant neoplasm of bladder; Z85.528 Personal history of other malignant neoplasm of kidney; Z92.21 Personal history of antineoplastic chemotherapy; Z92.25 Personal history of immunosuppression therapy; Z92.3 Personal history of irradiation; Z87.440 Personal history of urinary (tract) infections; Z88.5 Allergy status to narcotic agent; Z88.8 Allergy status to other drugs, medicaments and biological substances; Z91.040 Latex allergy status
CPT/HCPCS: 80048; 84132; 85025; 85027; 88305; 94760

== ENCOUNTER → 2023-04-04 | Outpatient (CLI) | payer MEDICARE, OTHER ==
--- NOTE | 2023-04-05 12:21 | CT ---
EXAMINATION TYPE: CT abdomen pelvis wo con CT DLP: 721 mGycm, Automated exposure control for dose reduction was used. DATE OF EXAM: 04/04/2023 3:19 PM COMPARISON: CT abdomen pelvis most recent from 12/16/2022, PET/CT 09/03/2022. CLINICAL INDICATION:Female, 77 years old with history of C673; hx of bladder and kidney ca TECHNIQUE: Axial CT of the abdomen and pelvis. Sagittal and coronal reformats were created on a [employer] workstation. Contrast used: None Oral contrast used: with Oral Contrast FINDINGS: LOWER CHEST: Bilateral small pleural effusions. These are similar to prior. The heart is mildly enlar ged for size. Trace pericardial effusion. ABDOMEN LIVER: Unremarkable GALLBLADDER AND BILE DUCTS: Unremarkable. PANCREAS: Unremarkable. SPLEEN: Unremarkable. ADRENAL GLANDS: Unremarkable. KIDNEYS AND URETERS: Surgically absent left kidney. The adrenal gland and surgical bed appear stable. Right subcapsular suspected hematoma seen on prior is no longer visualized. Ileal loop conduit is pr esent. PELVIS Bilateral hip arthroplasties limit evaluation the pelvis. BLADDER: The bladder is surgically absent. Evaluation of the surgical bed is limited given streak art ifact from bilateral hip prostheses. REPRODUCTIVE: Unremarkable. ABDOMEN & PELVIS STOMACH AND BOWEL: No evidence of bowel obstruction. PERITONEUM/RETROPERITONEUM: No evidence of pneumoperitoneum or free fluid. VASCULATURE: Moderate atherosclerotic calcifications are present throughout the abdominal aorta and i ts branches. No evidence of aortic aneurysm. MUSCULOSKELETAL: No acute osseous abnormalities. Moderate disc degeneration changes are present throu ghout the thoracolumbar spine., bilateral hip arthroplasties with streak artifact limiting evaluation pelvis. Grade 1 anterolisthesis of L4 on L5 and L5-S1. No spondylolysis. LYMPH NODES: No gross evidence for lymphadenopathy. SOFT TISSUE/ABDOMINAL WALL: Diverting ostomy present. IMPRESSION: 1. Resolution of right renal subcapsular hematoma seen on prior imaging. If not performed a MRI celina l mass protocol should be performed to rule out underlying lesion. 2. Surgically absent left kidney and urinary bladder with diverting ileal loop conduit. No definitiv e evidence for recurrence. 3. Small bilateral pleural effusions and trace pericardial effusion.
== END | disposition home or self-care (01) ==
LOC: RADCTMAIN 13:03
PROVIDERS: ATTEND Urology
DX: C67.9 Malignant neoplasm of bladder, unspecified (principal); C64.2 Malignant neoplasm of left kidney, except renal pelvis; I31.39 Other pericardial effusion (noninflammatory); J90 Pleural effusion, not elsewhere classified; Z90.5 Acquired absence of kidney
CPT/HCPCS: 36415; 74176; 82565; 84520

== ENCOUNTER 2023-04-12 06:03 | Day surgery (SDC) | payer MEDICARE, OTHER ==
[2023-04-07 10:25] VITALS: BMI 28.3
[~2023-04-12 06:03] MED LIST changes: -ACETAMINOPHEN TAB 500 MG TAB PO PRN; +ALPRAZolam 0.25 MG TAB PO PRN; +ALPRAZolam 0.5 MG TAB PO PRN; -DEXAMETHASONE SOD PHOSPHATE 4 MG/ML 1 ML VIAL IV ONE; -HEPARIN SODIUM,PORCINE/PF 5,000 UNIT/0.5 ML SYRINGE SQ PRN; -MIDAZOLAM 2 MG/2 ML VIAL IV PRN; +NITROGLYCERIN SL TABS 0.4 MG TAB SUBLINGUAL PRN; -ONDANSETRON 4 MG/2 ML VIAL IVP ONE; +SODIUM CHLORIDE 0.9% 1,000 ML in EMPTY BAG 1 BAG IV SCH
[2023-04-12 06:35] VITALS: RESP 18; TEMP 97.8
[2023-04-12] MEDS ORDERED: ASPIRIN 325 MG TAB PO ONE (07:00)
[2023-04-12 07:28] LABS: Calcium 8.9 mg/dL (8.4-10.2); Potassium 4.1 mmol/L (3.5-5.1)
[2023-04-12 07:39] LABS: Basophils % (A) 0 %; Eosinophils % (A) 1 %; HCT 37.3 % (34.0-46.0); HGB 11.8 gm/dL (11.4-16.0); Hypochromasia Slight; Lymphocytes # (A) 0.8 k/uL (1.0-4.8); Lymphocytes % (A) 25 %; MCH 32.5 pg (25.0-35.0); MCHC 31.6 g/dL (31.0-37.0); MCV 102.7 fL (80.0-100.0); Macrocytosis Slight; Mean Platelet Volume 9.2; Monocytes # (A) 0.5 k/uL (0-1.0); Monocytes % (A) 14 %; Neutrophils # (A) 1.7 k/uL (1.3-7.7); Neutrophils % (A) 55 %; Platelet Count 155 k/uL (150-450); RBC 3.63 m/uL (3.80-5.40); RDW 13.5 % (11.5-15.5); WBC 3.1 k/uL (3.8-10.6)
[2023-04-12] MEDS ORDERED: VERAPAMIL 2.5 MG/ML 2 ML AMP ONE (07:56)
[2023-04-12] MEDS ORDERED: HEPARIN SODIUM 1,000 UN/ML (10ML VL) ONE (07:56)
[2023-04-12] MEDS ORDERED: LIDOCAINE 1% INJ 10MG/ML (5 ML VIAL-PF) SQ ONE (08:14)
[2023-04-12] MEDS ORDERED: VERAPAMIL SYRINGE (5 MG/10 ML) INTRAARTER ONE (08:15)
[2023-04-12] MEDS ORDERED: MIDAZOLAM 2 MG/2 ML VIAL IV ONE (08:15)
[2023-04-12] MEDS ORDERED: HEPARIN SODIUM 1,000 UN/ML (10ML VL) IV ONE (08:20)
[2023-04-12] MEDS ORDERED: IOPAMIDOL-370 100ML BTL INJ ONE (08:27)
[2023-04-12] MEDS ORDERED: RX INFO: IV CONTRAST WAS GIVEN 1 EACH MISC MISCELLANE PRN (08:33)
[2023-04-12] MEDS ORDERED: PRAMIPEXOLE 0.25 MG TAB PO PRN (08:34)
--- NOTE | 2023-04-12 08:39 | P.CARDCATH ---
Date of Procedure: 04/12/23 Description of Procedure: Cardiac Catheterization: The patient is a 77-year-old female with a history of hypertension and hyperlipidemia who has been complaining of progressive dyspnea on exertion, she had an abnormal MPI. Recommendations were made regarding cardiac catheterization, the risks and the complications were discussed with the patient who is in full understanding and agreement. Procedure Description: Patient was brought to cathode washer in fasting semi-sedated state after receiving Versed and Benadryl achieiving moderate conscious sedated state. Using Xylocaine Anesthesia and Seldinger technique, a 6-Liberian sheath was introduced in the right radial artery . Subsequently, selective coronary angiography was performed using a 5-Liberian 3.5 bend Sarai catheter. Multiple views of the coronary artery including hemiaxial views were obtained. The right Sarai catheter was used to cross the aortic valve and LVEDP was calculated. Following that, catheter and sheath were removed. Hemostasis was obtained with deployment of TR band . There was no immediate complication. Patient was returned to room in stable condition. Of note, the patient received a total of 4000 units of intravenous heparin as well as intra-arterial verapamil. Findings: Left main: This is a large size vessel, bifurcating into LAD and left circumflex, left main has no evidence of high-grade stenosis LAD: This is a large size vessel giving rise to a moderately sized diagonal branch in the mid segment. The proximal LAD has 20-30% plaque, the mid LAD at the bifurcation of the diagonal branch has a 40-50% plaque involving the ostium of the diagonal branch. The rest of the vessel has no high-grade stenosis. Left circumflex: This is a nondominant vessel large in caliber giving rise to 2 obtuse marginal branch, the first one is very proximal. Post-up to his marginal branch of large. The left circumflex and its branches have no evidence of high- grade stenosis. RCA: This is a dominant vessel, bifurcating distally to PDA and PLV, the right coronary artery and its branches have no evidence of high-grade stenosis. Left Ventriculogram: Not performed Hemodynamics: There was no gradient across the aortic valve , LVEDP was 20-24 mmHg Conclusion: 1. Mild to moderate disease in the mid and proximal LAD 2. Right dominance 3. No evidence of obstructive disease in the left circumflex and RCA 4. Elevated LVEDP Recommendations: I would recommend to continue medical therapy with aggressive coronary risks modifications. The findings and the recommendations were discussed with the patient and the family and they were in full understanding and agreement. Duration of sedation is 12 minutes.
[2023-04-12] MEDS ORDERED: SODIUM CHLORIDE 0.9% 1,000 ML IV SCH (08:45)
[2023-04-12] MEDS ORDERED: POTASSIUM CHLORIDE ER 10 MEQ TAB.ER.PRT PO SCH (09:00)
[2023-04-12] MEDS ORDERED: ATORVASTATIN 20 MG TAB PO SCH (09:00)
[2023-04-12] MEDS ORDERED: ASPIRIN 81 MG PO SCH (09:00)
[2023-04-12] MEDS ORDERED: lisinopriL 20 MG TAB PO SCH (09:00)
[2023-04-12] MEDS ORDERED: hydrALAZINE HCL 50 MG TAB PO SCH (09:00)
[2023-04-12] MEDS ORDERED: METOPROLOL TARTRATE 50 MG TAB PO SCH (09:00)
[2023-04-12 14:01] VITALS: BP 164/82; PULSE 54
[2023-04-12] MEDS ORDERED: AMIODARONE 200 MG TAB PO SCH (21:00)
== END 2023-04-12 13:35 | disposition home or self-care (01) ==
LOC: CATHCVL 06:03
PROVIDERS: ATTEND Internal Medicine Interventional Cardiology
DX: I25.10 Atherosclerotic heart disease of native coronary artery without angina pectoris (principal); I48.0 Paroxysmal atrial fibrillation; I25.9 Chronic ischemic heart disease, unspecified; E78.2 Mixed hyperlipidemia; I10 Essential (primary) hypertension; E78.5 Hyperlipidemia, unspecified; Z87.891 Personal history of nicotine dependence; Z79.82 Long term (current) use of aspirin; Z79.899 Other long term (current) drug therapy; Z88.8 Allergy status to other drugs, medicaments and biological substances; Z91.040 Latex allergy status
CPT/HCPCS: 93458; 99152; 80048; 85025; C1769 ×2; C1894; J2250; J2001; J1644; Q9967

== ENCOUNTER → 2023-09-26 | Outpatient (CLI) | payer MEDICARE, OTHER ==
--- NOTE | 2023-09-27 10:49 | CT ---
EXAMINATION TYPE: CT abdomen pelvis wo con DATE OF EXAM: 09/26/2023 COMPARISON: 04/04/2023 INDICATION: hx of colitis. Post surgical pain. DLP: 636.6 mGycm, Automated exposure control for dose reduction was used. CONTRAST: 0 mL of Isovue 300. Study performed with Oral Contrast TECHNIQUE: Axial images were obtained from above the diaphragm to the pubic rami in the axial plane a t 5 mm thick sections. Reconstructed images are reviewed on the computer in the coronal plane. FINDINGS: Limited CT sections are obtained the lung bases. The lung bases are clear. CT ABDOMEN: Liver: Normal Spleen: Normal Pancreas: Normal Adrenal glands: Left adrenal gland is mildly thickened. Right adrenal gland appears normal. Gallbladder: Decompressed Kidneys: Left kidney is surgically absent. Right kidney appears normal and no masses cysts or hydrone phrosis. No hydroureter is evident. No renal stones are evident. Aorta: Vascular calcification is within the aorta. Inferior vena cava: Normal. CT PELVIS: Ostomy is in the right lower quadrant. Loops of bowel distended with oral contrast. Unremarkable. Fecal debris is within the colon. There ar e loops of bowel which are incompletely distended or lack oral contrast limiting their evaluation. Appendix: Not visualized Urinary bladder: Absent. Genitourinary structures: Uterus and ovaries are not identified. There is some limitation on the lowe r pelvis due to beam hardening artifact from bilateral hip prostheses. Osseous structures: No suspicious lytic or sclerotic lesions. IMPRESSION: 1. No suspicious bowel abnormality. 2. Prior left nephrectomy and cystectomy.
== END | disposition home or self-care (01) ==
LOC: RADCTMAIN 13:14
PROVIDERS: ATTEND Surgery
DX: K52.89 Other specified noninfective gastroenteritis and colitis (principal); Z90.5 Acquired absence of kidney
CPT/HCPCS: 74176

== ENCOUNTER → 2023-11-03 | Outpatient (CLI) | payer MEDICARE, OTHER ==
--- NOTE | 2023-11-03 14:24 | US ---
EXAMINATION TYPE: US kidneys/renal and bladder DATE OF EXAM: 11/03/2023 COMPARISON: CLINICAL INDICATION: Female, 77 years old with history of N18.31 CHRONIC KIDNEY DISEASE, STAGE 3A; Hx Bladder Cancer. Left kidney and bladder surgically absent and patient has a bladder bag. EXAM MEASUREMENTS: Right Kidney: 11.0 x 4.6 x 4.7 cm Right Kidney: No hydronephrosis or masses seen Left Kidney: Surgically absent Bladder: Surgically absent There is no evidence for hydronephrosis at this point in time. No nephrolithiasis is seen. No len s are identified. The urinary bladder is anechoic. Bilateral ureteral jets are seen. IMPRESSION: Postoperative changes without evidence for recurrent or residual disease on sonography.
== END | disposition home or self-care (01) ==
LOC: RADUSWWP 12:51
PROVIDERS: ATTEND Internal Medicine
DX: N18.31 Chronic kidney disease, stage 3a (principal); Z98.890 Other specified postprocedural states
CPT/HCPCS: 76770

== ENCOUNTER → 2023-11-24 | Outpatient (CLI) | payer MEDICARE, OTHER ==
[2023-11-24 21:06] LABS: ALT 9 U/L (8-44); AST 19 U/L (13-35); Albumin 4.5 g/dL (3.8-4.9); Alkaline Phosphatase 71 U/L (41-126); BUN/Creat Ratio 19.12 Ratio (12.00-20.00); Blood Urea Nitrogen 30.6 mg/dL (9.0-27.0); Calcium 9.8 mg/dL (8.7-10.3); Carbon Dioxide 21.2 mmol/L (21.6-31.8); Chloride 103 mmol/L (96-109); Globulin 2.5 g/dL (1.6-3.3); Glucose 95 mg/dL (70-110); Potassium 5.1 mmol/L (3.5-5.5); Sodium 139 mmol/L (135-145); Total Bilirubin 0.4 mg/dL (0.3-1.2)
== END | disposition home or self-care (01) ==
LOC: LABWHC1 12:28
PROVIDERS: ATTEND Internal Medicine
DX: N25.81 Secondary hyperparathyroidism of renal origin (principal); N18.31 Chronic kidney disease, stage 3a
CPT/HCPCS: 36415; 80053; 83970

== ENCOUNTER 2024-02-16 07:54 | Day surgery (SDC) | payer MEDICARE, OTHER ==
[2024-02-16] MEDS: LACTATED RINGERS 1,000 ML IV SCH (09:18)
[2024-02-16] MEDS ORDERED: LIDOCAINE 1% INJ 10MG/ML (20 ML MDV) ONE (09:48)
[2024-02-16] MEDS ORDERED: PROPOFOL 10 MG/ML 20 ML VIAL IV ONE (09:48)
[2024-02-16] MEDS ORDERED: PHENYLEPHRINE-0.9% NACL SYG 1,000 MCG/10 ML SYRINGE ONE (09:48)
[2024-02-16 09:57] VITALS: TEMP 97.8
--- NOTE | 2024-02-16 10:16 | P.OP ---
Date of Procedure: 02/16/24 Preoperative Diagnosis: Internal and external hemorrhoids Postoperative Diagnosis: Internal and external hemorrhoids Diverticulosis Procedure(s) Performed: Colonoscopy Anesthesia: MAC Surgeon: Juni Roa Condition: stable Disposition: PACU Description of Procedure: The patient's placed on the endoscopy table lateral position. She received IV sedation. Digital rectal exam was performed. This revealed internal/external hemorrhoids. Possible colonoscope was then placed patient anus passed throughout the entire colon. Ileocecal valve was visualized. The cecum, ascending and transverse colon appeared normal. In the descending; there was moderate diverticular changes. Scope was then brought back the rectum this ap peared normal scope was brought to anus and internal and external hemorrhoids are noted.
[2024-02-16 10:35] VITALS: PULSE 62
[2024-02-16 11:11] VITALS: BP 166/71; RESP 16
== END 2024-02-16 11:41 | disposition home or self-care (01) ==
LOC: ORWHC2ENDO 07:54
PROVIDERS: ATTEND Surgery
DX: K64.4 Residual hemorrhoidal skin tags (principal); K64.8 Other hemorrhoids; K57.30 Diverticulosis of large intestine without perforation or abscess without bleeding; I10 Essential (primary) hypertension; K21.9 Gastro-esophageal reflux disease without esophagitis; Z88.5 Allergy status to narcotic agent; Z88.8 Allergy status to other drugs, medicaments and biological substances; Z88.6 Allergy status to analgesic agent; Z79.899 Other long term (current) drug therapy; Z90.710 Acquired absence of both cervix and uterus; Z98.890 Other specified postprocedural states
CPT/HCPCS: 45378; J2001; J2704; J2371

== ENCOUNTER → 2024-04-20 | Outpatient (CLI) | payer MEDICARE, OTHER ==
--- NOTE | 2024-04-20 12:42 | CT ---
EXAMINATION TYPE: CT ChestAbdPelvis wo con DATE OF EXAM: 04/20/2024 COMPARISON: Abdomen and pelvis 09/26/2023 and PET/CT 09/03/2022 HISTORY: 78-year-old female C6 7.9, Hx bladder ca TECHNIQUE: Contiguous axial scanning of the chest, abdomen, and pelvis without IV contrast. Coronal a nd sagittal reconstructions performed. CT DLP: 661.40 mGycm Automated exposure control for dose reduction was used. FINDINGS: Chest: Heart normal size without pericardial effusion. Scattered three-vessel coronary artery calcifications are present. Aorta normal caliber with mild atelectatic arch calcifications and conventional arch vessels branchin g anatomy. Old postsurgical change along the upper quadrant of the left breast. Correlate for history of prior s urgery here. Borderline caliber to the main right and left pulmonary arteries up to 2.5 cm may reflect underlying pulmonary chill hypertension. No thoracic lymphadenopathy by CT size criteria. A few scattered 5 mm smaller pulmonary nodules on the right remain unchanged from 09/03/2022 compatib le with a benign etiology. No new pulmonary nodule seen. Mild biapical pleural-parenchymal scarring. No consolidation or pleural effusion. ABDOMEN: Noncontrast appearance of the liver, gallbladder, right adrenal gland, spleen, and pancreas show no g ross abnormal body. Assessment is limited due to lack of contrast. Mild low density thickening left adrenal gland is unchanged. Unchanged mild fullness of the right renal collecting system with evidence of right lower quadrant di verting urostomy with ileal conduit. The left kidney is absent. Surgical clips left retroperitoneal. No dilated small bowel, free fluid, or free air. Moderate stool burden. No pericolonic inflammatory c hange. There is new/increasing soft tissue along the aortic bifurcation and left common iliac chain measurin g 1.8 and 2.5 cm, respectively. In retrospect, soft tissue here previously measured 1.1 cm. Pelvis: Bladder is surgically absent. Unchanged presacral edema. Extensive metal artifact relating to the pat ient's bilateral total hip arthroplasties limiting visualization of pelvic structures. Multiple surgi shaquille clips are present. No pelvic lymphadenopathy is seen. Bones: Bilateral total hip arthroplasties. 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 [facility] mid and lower thoracic spine. No osseous destructive process s een. IMPRESSION: 1. REDEMONSTRATED BLADDER RESECTION. LEFT KIDNEY ABSENT. SIMILAR MILD FULLNESS OF THE RIGHT RENAL COL LECTING SYSTEM WITH DIVERTING RIGHT LOWER QUADRANT UROSTOMY AND ILEAL CONDUIT. 2. NEW/INCREASING RETROPERITONEAL SOFT TISSUE AT THE AORTIC BIFURCATION AND LEFT COMMON ILIAC CHAIN M EASURING UP TO 1.8 CM AND 2.5 CM, RESPECTIVELY. PREVIOUSLY MEASURED 1.1 CM. FINDINGS SUSPICIOUS FOR D ISEASE PROGRESSION. 3. POSTSURGICAL CHANGE UPPER INNER QUADRANT LEFT BREAST. CORRELATE FOR ANY RELEVANT HISTORY.
== END | disposition home or self-care (01) ==
LOC: RADCTMAIN 10:53
PROVIDERS: ATTEND Internal Medicine Hematology & Oncology
DX: C67.9 Malignant neoplasm of bladder, unspecified (principal); R63.0 Anorexia; R63.4 Abnormal weight loss; D05.12 Intraductal carcinoma in situ of left breast; Z71.3 Dietary counseling and surveillance
CPT/HCPCS: 71250; 74176

== ENCOUNTER → 2024-05-21 | Outpatient (CLI) | payer MEDICARE, OTHER ==
--- NOTE | 2024-05-22 09:23 | MM ---
Reason for Exam: Screening (asymptomatic). Last mammogram was performed 4 year(s) and 10 month(s) ago. Patient History: Menarche at age 15. First Full-Term at age 19. Left ovary removed at age 64. Right ovary removed at age 64. Hysterectomy at age 64. Postmenopausal. Other cancer, age 64. Breast cancer, age 61. Previous chest radiation therapy at age 61. Hormonal Contraceptives for 11 years until age 35. Tamoxifen, starting at age 60 for 5 years. 10/12/2006, Malignant Core Biopsy on the left side. 11/25/2006, Malignant Excisional Biopsy on the left side. Excisional Biopsy on the Right side. Excisional Biopsy on the Left side. 2006, Radiation Therapy on the left side. Maternal grandmother had breast cancer, age 60. Prior Study Comparison: 10/04/2016 Bilateral Diagnostic Mammogram, [facility]. 10/19/2017 Bilateral Diagnostic Mammogram, [facility]. 08/06/2019 Bilateral Diagnostic Mammogram, [facility]. Tissue Density: There are scattered areas of fibroglandular density. Findings: Analyzed By CAD. There is an asymmetric density anterior right breast remain unchanged. Postsurgical and posttreatment changes left breast with inspiratory and fat necrosis calcifications redemonstrated. Additional bilateral benign vascular calcifications. Overall Assessment: Benign, BI-RAD 2 Management: Screening Mammogram of both breasts in 1 year. . Patient should continue monthly self-breast exams. A clinical breast exam by your physician is recommended on an annual basis. This exam should not preclude additional follow-up of suspicious palpable abnormalities. Electronically signed and approved by: Angelita Langston M.D. Radiologist
== END | disposition home or self-care (01) ==
LOC: RADMAMWWP 15:44
PROVIDERS: ATTEND Internal Medicine Hematology & Oncology
DX: Z12.31 Encounter for screening mammogram for malignant neoplasm of breast (principal); Z78.0 Asymptomatic menopausal state; Z80.3 Family history of malignant neoplasm of breast
CPT/HCPCS: 77063; 77067

== ENCOUNTER → 2024-05-31 | Outpatient (CLI) | payer MEDICARE, OTHER ==
--- NOTE | 2024-06-03 19:49 | PE ---
EXAMINATION TYPE: PET CT fusion skull to thigh DATE OF EXAM: 05/31/2024 CLINICAL INDICATION:Female, 78 years old with history of C67.8 BLADDER CA; TECHNIQUE: Following the intravenous administration of 11.53 mCi of F-18 FDG, whole body images are performed from the skull base to the midthigh. Images are reviewed on the computer in the coronal, axial, and sagittal planes. Reconstructed rotating images are created on independent workstation and reviewed on the computer. A non-contrast CT is performed in conjunction with the PET scan. Glucose level 89 mg/dL CT DLP: 608 mGycm, Automated exposure control for dose reduction was used. COMPARISON: CT 04/20/2024, PET/CT 09/03/2022, MRI: None FINDINGS: Mediastinal SUV mean is 2.5. Hepatic parenchyma SUV mean is 3.3. SKULL BASE AND NECK: No suspicious radiotracer activity. CHEST, MEDIASTINUM, AND HILAR REGION: No suspicious radiotracer activity. ABDOMEN AND PELVIS: * Increasing soft tissue measuring 20 x 12 x 40 mm near the bifurcation of the aorta max SUV 11.0 an d more laterally along the left external iliac artery max SUV 5.8 measuring 10 mm. * Uptake near the bladder surgical bed is within bowel lezama. MUSCULOSKELETAL STRUCTURES: * No suspicious radiotracer activity. * Degeneration uptake at the right sternoclavicular joint max SUV 4.6. * Left gluteus dominique uptake near its insertion max SUV 6.4 likely representing muscle strain. OTHER CT: Mild cardiomegaly. Mild aortic valve cusp patient's, coronary artery cusp patient's. Loop i gilbert conduit right lower lobe. There is large amount stool in the colon. Atherosclerosis of the arter ial vasculature in the abdomen. There is bilateral hip arthroplasties IMPRESSION: FDG avid soft tissue near the aortic bifurcation on the left and an area along the left external beatrice c chain. Concerning for progression of disease
== END | disposition home or self-care (01) ==
LOC: RADPETMAIN 14:54
PROVIDERS: ATTEND Internal Medicine Hematology & Oncology
DX: C67.8 Malignant neoplasm of overlapping sites of bladder (principal); D05.12 Intraductal carcinoma in situ of left breast; R63.4 Abnormal weight loss; I10 Essential (primary) hypertension; I72.4 Aneurysm of artery of lower extremity
CPT/HCPCS: 78815; A9552

== ENCOUNTER → 2024-11-01 | Outpatient (CLI) | payer MEDICARE, OTHER ==
--- NOTE | 2024-11-03 08:43 | PE ---
EXAMINATION TYPE: PET CT fusion skull to thigh DATE OF EXAM: 11/01/2024 CLINICAL INDICATION:Female, 78 years old with history of C67.8 BLADDER CANCER; TECHNIQUE: Following the intravenous administration of 12.55 mCi of F-18 FDG, whole body images are performed from the skull base to the midthigh. Images are reviewed on the computer in the coronal, axial, and sagittal planes. Reconstructed rotating images are created on independent workstation and reviewed on the computer. A non-contrast CT is performed in conjunction with the PET scan. Glucose level 108 mg/dL CT DLP: 619 mGycm, Automated exposure control for dose reduction was used. COMPARISON: CT 04/20/2024, PET/CT 05/31/2024 09/03/2022, MRI: None FINDINGS: Mediastinal SUV mean is 2.5. Hepatic parenchyma SUV mean is 3.3 SKULL BASE AND NECK: No suspicious radiotracer activity. CHEST, MEDIASTINUM, AND HILAR REGION: No suspicious radiotracer activity. ABDOMEN AND PELVIS: * Increasing soft tissue measuring 20 x 12 x 40 mm near the bifurcation of the aorta max SUV 9.4, pr eviously 11.0 and more laterally along the left external iliac artery max SUV 6.1, previously 5.8 codie suring 10 mm. * Uptake near the bladder surgical bed is within bowel lezama. MUSCULOSKELETAL STRUCTURES: * No suspicious radiotracer activity. * Degeneration uptake at the right sternoclavicular joint max SUV 3.9, previously 4.6. * Left gluteus dominique uptake near its insertion max SUV 4.7, previously 6.4 likely representing mus vandana strain. OTHER CT: Mild cardiomegaly. Mild aortic valve cusp patient's, coronary artery cusp patient's. Loop i gilbert conduit right lower abdomen. There is large amount stool in the colon. Atherosclerosis of the ar terial vasculature in the abdomen. There is bilateral hip arthroplasties IMPRESSION: Similar FDG avid soft tissue near the aortic bifurcation and an area along the left external iliac ch ain. Size and FDG avid to the slightly decreased in the larger area however slightly increased in the left external iliac chain soft tissue mass. Continued surveillance recommended. [facility], , 11/03/2024 8:41 AM
== END | disposition home or self-care (01) ==
LOC: RADPETMAIN 09:31
PROVIDERS: ATTEND Internal Medicine Hematology & Oncology
DX: C67.8 Malignant neoplasm of overlapping sites of bladder (principal); I51.7 Cardiomegaly
CPT/HCPCS: 78815; A9552

== ENCOUNTER → 2025-02-21 | Outpatient (CLI) | payer MEDICARE, OTHER ==
--- NOTE | 2025-02-24 18:43 | PE ---
EXAMINATION TYPE: PET CT fusion skull to thigh DATE OF EXAM: 02/21/2025 COMPARISON: CT chest abdomen pelvis 04/20/2024 Prior PET/CT: 11/01/2024 CLINICAL INDICATION: Female, 79 years old with history of C67.8 BLADDER CANCER, TECHNIQUE: Following the intravenous administration of 10.76 mCi of F-18 FDG, whole body images are performed PET CT fusion skull to thigh. Images are reviewed on the computer in the coronal, axial, a nd sagittal planes. Reconstructed rotating images are created on independent workstation and reviewe d on the computer. A localization and attenuation correction CT is performed in conjunction with e PET scan. DLP: 657.46 mGycm SCAN: Subsequent Blood glucose: 96 mg/dL Average Mediastinum SUV: 2.21 Average Liver SUV: 3.06 FINDINGS: NECK: No abnormal uptake THORAX: No abnormal uptake ABDOMEN: No abnormal uptake PELVIS: There is increased signal along the left common iliac artery. Some iliac chain adenopathy cou ld be considered neobladder and colon contains some normal contrast. OSSEOUS STRUCTURES: No abnormal uptake LOCALIZATION CT: Left kidney is absent. There is persistent thickening of soft tissue measuring 3.2 c m anterior to the bifurcation of the aorta which is larger than comparison. COMPARISON: Uptake in the region of the aortic bifurcation and left iliac chain was present previousl y. Current SUV 7.48, image 187 Previous SUV 7.01 IMPRESSION: 1. Stable uptake along the left iliac chain region with similar SUV. 2. No new areas of uptake identified. 3. Continued monitoring recommend [facility], , 02/24/2025 6:40 PM
== END | disposition home or self-care (01) ==
LOC: RADPETMAIN 09:28
PROVIDERS: ATTEND Internal Medicine Hematology & Oncology
DX: C67.8 Malignant neoplasm of overlapping sites of bladder (principal); D05.12 Intraductal carcinoma in situ of left breast; R63.4 Abnormal weight loss; I10 Essential (primary) hypertension; I25.10 Atherosclerotic heart disease of native coronary artery without angina pectoris; E78.5 Hyperlipidemia, unspecified; Z71.3 Dietary counseling and surveillance
CPT/HCPCS: 78815; A9552